=== PATIENT | male | born 1945 | race Caucasian/White ===

== ENCOUNTER 2017-07-03 13:32 | Outpatient (CLI) | payer MEDICARE ==
--- OUTSIDE RECORDS SUMMARY | 2017-07-03 13:34 | XMS | Clinical Summary ---
:1945 Author Organization [facility] Address [address] [place] [address] Phone Care Team Providers Name Role Phone , Primary Care Provider Unavailable Allergies No Known Allergies Current Medications Prescription Sig. Disp. Refills Start Date End Date Status carvedilol (COREG) 12.5 Take 12.5 mg by Active MG tablet mouth 2 (two) times daily with breakfast and dinner. ezetimibe (ZETIA) 10 mg Take 10 mg by mouth Active tablet daily. rosuvastatin (CRESTOR) Take 10 mg by mouth Active 10 MG tablet daily. ramipril (ALTACE) 2.5 MG Take 2.5 mg by mouth Active capsule daily. furosemide (LASIX) 40 MG Take 40 mg by mouth Active tablet daily. metFORMIN (GLUCOPHAGE) Take 500 mg by mouth Active 500 MG tablet 2 (two) times daily with breakfast and dinner. coenzyme Q10 100 mg Take 100 mg by mouth Active capsule daily. loratadine (CLARITIN) 10 Take 10 mg by mouth Active mg tablet daily. aspirin 325 MG tablet Take 325 mg by mouth Active daily. omega-3 fatty acids Cap Take by mouth 2 Active (two) times daily. multivitamin per tablet Take 1 tablet by Active mouth daily. omeprazole (PRILOSEC) 40 Take 40 mg by mouth Active MG capsule 2 (two) times daily. Active Problems Not on file Social History Tobacco Use Types Packs/Day Years Used Date Former Smoker Smokeless Tobacco: Never Used Comments:quit 1999 Alcohol Use Drinks/Week oz/Week Comments No Sex Assigned at Date Recorded Not on file Last Filed Vital Signs Vital Sign Reading Time Taken Blood Pressure 114/60 07/24/2016 3:15 PM CDT Pulse 90 07/24/2016 3:15 PM CDT Temperature 37.2 C (98.9 F) 07/24/2016 3:00 PM CDT Respiratory Rate 16 07/24/2016 3:15 PM CDT Oxygen Saturation 95% 07/24/2016 3:15 PM CDT Inhaled Oxygen Concentration - - Weight 103.4 kg (227 lb 15.3 oz) 07/24/2016 11:21 AM CDT Height 188 cm (6' 2") 07/24/2016 11:21 AM CDT Body Mass Index 29.27 07/24/2016 11:21 AM CDT Plan of Treatment Not on file Results Not on filefrom Last 3 Months
--- OUTSIDE RECORDS SUMMARY | 2017-07-03 13:34 | XMS | Clinical Summary ---
:1945 Author Organization [facility] Address [address] [place] [address] Phone Care Team Providers Name Role Phone TinoKristofer Primary Care Provider tel Allergies No Known Allergies Current Medications Prescription Sig. Disp. Refills Start Date End Date Status rosuvastatin (CRESTOR) Take 10 mg by Active 20 MG tablet mouth daily. ramipril (ALTACE) 2.5 Take 2.5 mg by Active MG capsule mouth daily. furosemide (LASIX) 40 Take 20 mg by Active MG tablet mouth daily. aspirin 325 MG buffered Take 325 mg by Active tablet mouth daily. carvedilol (COREG) 3.125 mg 2 08/05/2016 Active 3.125 MG tablet (two) times a day with meals. diphenhydrAMINE Take 25 mg by Active (BENADRYL) 25 mg tablet mouth nightly as needed for sleep (AT NIGHT NEEDED). omeprazole OTC Take 1 tablet 30 tablet 0 05/14/2017 06/13/2017 (PriLOSEC OTC) 20 MG EC (20 mg total) tablet by mouth daily for 30 days. sucralfate (CARAFATE) Take 10 mL (1 280 mL 0 06/04/2017 06/11/2017 100 mg/mL suspension g total) by mouth 4 (four) times a day for 7 days. Active Problems Problem Noted Date Esophageal perforation 04/17/2017 Essential hypertension 08/26/2016 Type 2 diabetes mellitus 08/26/2016 Cellulitis 05/14/2016 Esophageal cancer 05/03/2016 Encounters Date Type Specialty Care Team Description 06/04/2017 Hospital Encounter Cardiothoracic Surgery Joaquin Rizvi MD 06/04/2017 Anesthesia Event Cardiothoracic Surgery Brook Saini MD 06/04/2017 Procedure Pass Cardiothoracic Surgery 06/04/2017 Surgery Cardiothoracic Surgery Joaquin Rizvi EGD W/ esophageal MD Alex balloon DILATION and esophagram 05/30/2017 Telephone Cardiothoracic Surgery Gabby Oleary NP 05/30/2017 Procedure Pass Cardiothoracic Surgery 05/14/2017 Hospital Encounter Cardiothoracic Surgery Joaquin Riziv MD 05/14/2017 Anesthesia Event Cardiothoracic Surgery Darshan Alvarado MD 05/14/2017 Procedure Pass Cardiothoracic Surgery 05/14/2017 Surgery Cardiothoracic Surgery Joaquin Rizvi EGD W/ DILATIONAlex MD esophagram 04/24/2017 Transcribe Orders Cardiothoracic Surgery Joaquin Rizvi Esophageal MD Alex stricture (Primary Dx);Blood tests prior to treatment or procedure;SOB (shortness of breath) 04/17/2017 - Hospital Encounter Cardiology Joaquin Rizvi 04/18/2017 MD Alex 04/17/2017 Anesthesia Event Cardiothoracic Surgery Shola Messer MD 04/17/2017 Procedure Pass Cardiothoracic Surgery 04/17/2017 Surgery Cardiothoracic Surgery Joaquin Rizvi EGD, W/ DILATIONAlex MD Esophagram 04/16/2017 Telephone Cardiothoracic Surgery Gabby Oleary NP 04/04/2017 Hospital Encounter Cardiothoracic Surgery Georgi Truong MD 04/04/2017 Anesthesia Event Cardiothoracic Surgery Keerthi Brandt CRNA 04/04/2017 Procedure Pass Cardiothoracic Surgery 04/04/2017 Surgery Cardiothoracic Surgery Georgi Truong EGZack W/ Lizbeth DUNCAN MD KENALOG INJECTION, FLEXIBLE BRONCHOSCOPY 04/03/2017 Telephone Cardiothoracic Surgery Gabby Oleary NP 04/02/2017 Orders Only Cardiothoracic Surgery Provider, MD Susan from Last 3 Months Social History Tobacco Use Types Packs/Day Years Used Date Former Smoker Cigarettes 1.5 40 Quit: 2000 Smokeless Tobacco: Never Used Tobacco Cessation:Counseling Given: No Alcohol Use Drinks/Week oz/Week Comments No former Sex Assigned at Date Recorded Not on file Last Filed Vital Signs Vital Sign Reading Time Taken Blood Pressure 112/62 06/04/2017 5:22 PM CDT Pulse 89 06/04/2017 5:22 PM CDT Temperature 36.8 C (98.2 F) 06/04/2017 5:22 PM CDT Respiratory Rate 14 06/04/2017 5:22 PM CDT Oxygen Saturation 94% 06/04/2017 5:22 PM CDT Inhaled Oxygen Concentration - - Weight 84 kg (185 lb 4 oz) 06/04/2017 10:35 AM CDT Height 188 cm (6' 2") 06/04/2017 10:35 AM CDT Body Mass Index 23.78 06/04/2017 10:35 AM CDT Plan of Treatment Health Maintenance Due Date Last Done Comments FOOT EXAM 1954 OPHTHALMOLOGY EXAM 1954 COLONOSCOPY 1994 ZOSTER VACCINE 2004 PNEUMOCOCCAL POLYSACCHARIDE VACCINE AGE 65 AND OVER 2009 PNEUMOCOCCAL-13 2009 INFLUENZA VACCINE 04/29/2017 Implants Implanted Type Area Contact Lens Assistant Device Expiration Model / Identifier Date Serial / Lot Dilator Baln Espgl Pylrc Clnc Wire Guided [id number] 6-8mm - [id number] Surgical N/A: N/A [facility] [id number] / Implanted:04/04/2017 (Quantity not on file) Implants; / Expanders; Extenders; Surgical Wires Dilator Baln Espgl Pylrc Clnc Wire Guided [id number] 8-10mm - [id number] Surgical N/A: N/A [facility] [id number] / Implanted:04/17/2017 (Quantity not on file) Implants; / Expanders; Extenders; Surgical Wires Dilator Baln Espgl Pylrc Clnc Wire Guided [id number] 10-12mm - [id number] Surgical N/A: N/A [facility] [id number] / Implanted:04/17/2017 (Quantity not on file) Implants; / Expanders; Extenders; Surgical Wires Dilator Baln Espgl Pylrc Clnc Wire Guided [id number] 10-12mm - [id number] Surgical N/A: N/A [facility] [id number] / Implanted:05/14/2017 (Quantity not on file) Implants; / Expanders; Extenders; Surgical Wires Dilator Baln Espgl Pylrc Clnc Wire Guided [id number] 12-15mm - [id number] Surgical N/A: N/A [facility] [id number] / Implanted:05/14/2017 (Quantity not on file) Implants; / Expanders; Extenders; Surgical Wires Dilator Baln Espgl Pylrc Clnc Wire Guided [id number] 10-12mm - [id number] Surgical N/A: N/A [facility] [id number] / Implanted:06/04/2017 (Quantity not on file) Implants; / Expanders; Extenders; Surgical Wires Dilator Baln Espgl Pylrc Clnc Wire Guided [id number] 15-18mm - [id number] Surgical N/A: N/A [facility] [id number] / Implanted:06/04/2017 (Quantity not on file) Implants; / Expanders; Extenders; Surgical Wires Procedures Procedure Name Priority Date/Time Associated Diagnosis Comments NH AN ELECTIVE Routine 06/04/2017 1:36 PM ENDOTRACHEAL AIRWAY CDT Procedure Note - Ewa Xavier MD - 06/04/2017 1:34 PM CDT Airway Date/Time: 06/04/2017 1:24 AM Performed by: EWA XAVIER Authorized by: EWA XAVIER Location: OR Urgency: Elective Difficult Airway: No Anesthesiologist: EWA XAVIER Resident/HEALTH INFORMATICS SPECIALIST: AI HAIR Performed by: resident/HEALTH INFORMATICS SPECIALIST Preoxygenated with 100% O2: Yes C-spine Precautions Maintained Throughout: Yes Mask Ventilation: Easy mask Final Airway Type: Endotracheal airway Final Endotracheal Airway: ETT Technique Used: Video laryngoscopy Devices/Methods Used in Placement: Intubating stylet Insertion Site: Oral Blade Type: Zepeda Laryngoscope Blade/Videolaryngoscope Blade Size: 4 ETT Size (mm): 8.0 Measured from: Lips ETT to Lips (cm): 23 Placement Verified by: CO2 detection, direct visualization and equalbreath sounds Laryngoscopic view: Grade I - full view of glottis Rapid Sequence Induction (RSI): No Modified RSI: No Number of Attempts at Approach: 1 NH AN ELECTIVE ENDOTRACHEAL AIRWAY Routine 05/14/2017 10:52 AM CDT Procedure Note - Bala Spencer CRNA - 05/14/2017 10:50 AM CDT Airway Date/Time: 05/14/2017 10:30 AM Performed by: BALA SPENCER Authorized by: ASHLEIGH CONDON Location: OR Urgency: Elective Difficult Airway: No Anesthesiologist: FLACO ROBERTSON Resident/HEALTH INFORMATICS SPECIALIST: BALA SPENCER Performed by: anesthesiologist Preoxygenated with 100% O2: Yes C-spine Precautions Maintained Throughout: Yes Mask Ventilation: Easy mask Final Airway Type: Endotracheal airway Final Endotracheal Airway: ETT Cuffed: Yes Technique Used: Direct laryngoscopy Devices/Methods Used in Placement: Intubating stylet Blade Type: Zepeda Laryngoscope Blade/Videolaryngoscope Blade Size: 2 ETT Size (mm): 8.0 Cuff at minimum occlusion pressure: Yes Measured from: Lips ETT to Lips (cm): 23 Placement Verified by: CO2 detection and direct visualization Laryngoscopic view: Grade IIb - view of arytenoids or posterior ofglottis only Rapid Sequence Induction (RSI): No Modified RSI: Yes Number of Attempts at Approach: 2 ARTERIAL LINE Routine 04/17/2017 10:05 AM CDT Procedure Note - Ewa Xavier MD - 04/17/2017 10:05 AM CDT Arterial line Performed by: EWA XAVIER Authorized by: EWA XAVIER Patient Location: OR Staff: Anesthesiologist: EWA XAVIER Resident/HEALTH INFORMATICS SPECIALIST: AUGUSTINA CUNNINGHAM Performed by: Resident/HEALTH INFORMATICS SPECIALIST Pre-procedure: patient identified, IV checked, site and side verified,risks and benefits discussed, procedure verified, surgical consentcomplete, patient position confirmed, monitors and equipment checked andpre-op evaluation complete MSBT: antiseptic used, all elements of maximal sterile barrier techniquefollowed, hand hygiene performed, cap/gown used by other personnel andsolutions labeled Indications: Indications: hemodynamic monitoring Anesthesia: Anesthesia: General Procedure Details: Arterial Line placement: Placed post induction Line placement site: Radial Line placement side: Right Arterial line gauge: 20 G Number of attempts: 1 Ultrasound guidance used: Yes Post-procedure: Post-procedure: Sterile dressing applied Post procedure circulation, sensation, movement: Unchanged and normal Patient tolerance: Patient tolerated the procedure well with noimmediate complications NH AN ELECTIVE ENDOTRACHEAL AIRWAY Routine 04/17/2017 9:38 AM CDT Procedure Note - Ewa Xavier MD - 04/17/2017 9:36 AM CDT Airway Date/Time: 04/17/2017 9:32 AM Performed by: EWA XAVIER Authorized by: EWA XAVIER Location: OR Urgency: Elective Difficult Airway: Yes Anesthesiologist: EWA XAVIER/HEALTH INFORMATICS SPECIALIST: AUGUSTINA CUNNINGHAM Performed by: resident/HEALTH INFORMATICS SPECIALIST Preoxygenated with 100% O2: Yes C-spine Precautions Maintained Throughout: Yes Mask Ventilation: Easy mask Final Airway Type: Endotracheal airway Final Endotracheal Airway: ETT Cuffed: Yes Technique Used: Direct laryngoscopy Devices/Methods Used in Placement: Intubating stylet Insertion Site: Oral Blade Type: Zepeda Laryngoscope Blade/Videolaryngoscope Blade Size: 3 ETT Size (mm): 8.0 Cuff at minimum occlusion pressure: Yes Measured from: Lips ETT to Lips (cm): 22 Placement Verified by: CO2 detection, direct visualization and equalbreath sounds Laryngoscopic view: Grade III - view of epiglottis only Rapid Sequence Induction (RSI): No Modified RSI: No Number of Attempts at Approach: 1 NH AN ELECTIVE ENDOTRACHEAL AIRWAY Routine 04/04/2017 10:17 AM CDT Procedure Note - Vicki Solis HEALTH INFORMATICS SPECIALIST - 04/04/2017 10:16 AM CDT Airway Date/Time: 04/04/2017 10:16 AM Performed by: VICKI SOLIS Authorized by: HANNAH NERI V Location: OR Urgency: Elective Difficult Airway: No Anesthesiologist: HANNAH NERI V Performed by: anesthesiologist Preoxygenated with 100% O2: Yes Mask Ventilation: Easy mask Final Airway Type: Endotracheal airway Final Endotracheal Airway: ETT Cuffed: Yes Technique Used: Direct laryngoscopy Devices/Methods Used in Placement: Intubating stylet Insertion Site: Oral Blade Type: Zepeda Laryngoscope Blade/Videolaryngoscope Blade Size: 2 ETT Size (mm): 8.0 Cuff at minimum occlusion pressure: Yes Measured from: Lips ETT to Lips (cm): 22 Placement Verified by: CO2 detection and direct visualization Laryngoscopic view: Grade IIa - partial view of glottis Modified RSI: Yes Number of Attempts at Approach: 1 from Last 3 Months Results XR Chest 1 Vw Portable (06/04/2017 4:20 PM)Only the most recent of9 resultswithin the time period is included. Specimen Performing Laboratory [facility] [address] [place] [address] Narrative EXAMINATION:XR CHEST 1 VW PORTABLE CLINICAL HISTORY:post op COMPARISON:05/14/2017 IMPRESSION: Right-sided chest port is again noted. Heart and mediastinum stable. Focal area of alveolar infiltrates, right mid lung zone, and to a lesser degree, left midlung zone. Underlying pneumonia suspected.Follow-up recommended. Blunting of the costophrenic angles again noted and may indicate small effusions. [id number] Procedure Note Interface, Radiology Results Incoming - 06/04/2017 4:30 PM CDT EXAMINATION: XR CHEST 1 VW PORTABLE CLINICAL HISTORY: post op COMPARISON: 05/14/2017 IMPRESSION: Right-sided chest port is again noted. Heart and mediastinum stable. Focalarea of alveolar infiltrates, right mid lung zone, and to a lesser degree,left midlung zone. Underlying pneumonia suspected. Follow-up recommended.Blunting of the costophrenic angles again noted and may indicate small effusions. [facility]-[id number] OR FL< 1 Hour (06/04/2017 2:15 PM)Only the most recent of3 resultswithin the time period is included. Specimen Performing Laboratory [facility] [address] [place] [address] Narrative EXAMINATION:OR FL 1 HOUR C-arm fluoroscopy was requested in OR. Location: [facility] 9 Procedure: Bronch Start: 13:20 End: 14:15 Fluoro Time: 0:53 min Dose: 16.9 Tech(S): SH/AB IMPRESSION: Separate operative report will be issued by the physician performing the procedure. [id number] Procedure Note Interface, Radiology Results Incoming - 06/04/2017 7:38 PM CDT EXAMINATION: OR FL 1 HOUR C-arm fluoroscopy was requested in OR. Location: [facility] 9 Procedure: Bronch Start: 13:20 End: 14:15 Fluoro Time: 0:53 min Dose: 16.9 Tech(S): SH/AB IMPRESSION: Separate operative report will be issued by the physician performing theprocedure. [id number] Estimated GFR (06/04/2017 10:34 AM)Only the most recent of3 resultswithin the time period is included. Component Value Ref Range GFR Non Af Amer >90 mL/min/1.73 m2 GFR Af Amer >90 mL/min/1.73 m2 Comment: Chronic kidney disease: <60 mL/min/1.73m2 Kidney failure: <15 mL/min/1.73m2 The estimated GFR is calculated from the IDMS-traceable Modification of Diet in Renal Disease Equation. The accuracy of the calculation is poor when the creatinine is normal. Calculated values >90 mL/min/1.73m2 are not reported. This equation has not been validated in children (<18 years), women, the elderly (>70 years), or ethnic groups other than Caucasians and Americans. Specimen Performing Laboratory Plasma specimen [facility] DEPARTMENT OF PATHOLOGY AND [address] [address] Partial thromboplastin time, activated (06/04/2017 10:34 AM)Only the most recent of2 resultswithin the time period is included. Component Value Ref Range PTT 29.0 23.0 - 36.0 sec Comment: PTT therapeutic range for unfractionated heparin is 61.0-112.0 seconds which corresponds to Anti-Xa 0.3-0.7 U/ml. Specimen Performing Laboratory Blood [facility] OF PATHOLOGY AND [address] [address] Prothrombin time with INR (06/04/2017 10:34 AM)Only the most recent of2 resultswithin the time period is included. Component Value Ref Range Prothrombin time 13.8 12.0 - 15.0 sec INR 1.1 Comment: The International Normalized Ratio (INR) is a therapeutic monitoring tool for patients who are stable on oral anticoagulant therapy. An INR of 2.0-3.0 is suggested for deep vein thrombosis/pulmonary embolism. Specimen Performing Laboratory Blood [facility] DEPARTMENT OF PATHOLOGY AND [address] [address] CBC with platelet and differential (06/04/2017 10:34 AM)Only the most recent of3 resultswithin the time period is included. Component Value Ref Range WBC 6.89 4.50 - 11.00 k/uL RBC 3.69(L) 4.40 - 6.00 m/uL HGB 11.3(L) 14.0 - 18.0 g/dL HCT 35.8(L) 41.0 - 51.0 % MCV 97.0 82.0 - 100.0 fL MCH 30.6 27.0 - 34.0 pg MCHC 31.6 31.0 - 37.0 g/dL RDW - SD 53.2 37.0 - 55.0 fL MPV 10.0 8.8 - 13.2 fL Platelet count 299 150 - 400 k/uL Nucleated RBC 0.00 /100 WBC Neutrophils 62.0 39.0 - 69.0 % Lymphocytes 12.5(L) 25.0 - 45.0 % Monocytes 13.1(H) 0.0 - 10.0 % Eosinophils 10.6(H) 0.0 - 5.0 % Basophils 1.2(H) 0.0 - 1.0 % Immature granulocytes 0.6Comment:"Immature granulocytes" 0.0 - 1.0 % (promyelocytes, myelocytes, metamyelocytes) Specimen Performing Laboratory Blood [facility] DEPARTMENT OF PATHOLOGY AND GENOMIC MEDICINE [address] [place] [address] Basic metabolic panel (06/04/2017 10:34 AM)Only the most recent of3 resultswithin the time period is included. Component Value Ref Range Sodium 143 135 - 148 mEq/L Potassium 4.7 3.5 - 5.0 mEq/L Chloride 101 98 - 112 mEq/L CO2 29 24 - 31 mEq/L Anion gap 13 7 - 15 mEq/L Comment: Starting from December , anion gap calculation no longer incorporates potassium. Please note the change. BUN 15 8 - 23 mg/dL Creatinine 0.5(L) 0.7 - 1.2 mg/dL Glucose 110(H) 65 - 99 mg/dL Calcium 9.9 8.8 - 10.2 mg/dL Specimen Performing Laboratory Plasma specimen [facility] DEPARTMENT OF PATHOLOGY AND [facility] MEDICINE [address] [place] [id number] PET/CT Whole Body External Study (05/13/2017 10:40 AM) Specimen Performing Laboratory [address] [address] Narrative This exam was not acquired at a [facility] facility and has not been interpreted by a [facility] Provider.The exam was imported into our imaging system for comparisons purposes. CT Guided Chest Tube (04/17/2017 7:30 PM) Specimen Performing Laboratory [address] [address] Narrative Performing Radiologist Rico Tesfaye MD Assistants None Anesthesia Type Moderate sedation was administered by the procedure nurse and monitored by the procedure physician for a total [id number] sedation time of 30 minutes. Lidocaine 1% was also used for local anesthetic. Indication Right-sided Pneumothorax. Procedure CT-guided Right-sided chest tube placement. Technique the patient was placed supine on the CT table. The right chest was prepped and draped in usual sterile fashion. 1% lidocaine was used for local anesthetic. Using CT guidance, an 18-gauge needle was used to access the large right-sided pneumothorax. A 0.035 inch J-wire was advanced through the needle, coiled in the right hemithorax. An 8 Cymraes skater all-purpose tube was placed over the wire, placed in the large right-sided pneumothorax. The pneumothorax was partially evacuated. The tube was connected to a Pleur-evac, sutured to the skin and dressed. Patient tolerated the procedure well. Findings CT performed as part of a CT-guided procedure redemonstrates a large right- sided pneumothorax. Remainder of findings unchanged from prior CT report. Complications None Specimens Removed None Estimated Blood Loss Less than 1 mL Blood/Blood Products Administered None Grafts/Implants As described in the above report Impression: 1. Successful CT-guided right-sided chest tube placement. [facility]-[id number] Procedure Note Hm Interface, Radiology Results Incoming - 04/18/2017 12:35 PM CDT Performing Radiologist Rico Tesfaye MD Assistants None Anesthesia Type Moderate sedation was administered by the procedure nurse and monitored bythe procedure physician for a total [id number] sedation time of 30minutes. Lidocaine 1% was also used for local anesthetic. Indication Right-sided Pneumothorax. Procedure CT-guided Right-sided chest tube placement. Technique the patient was placed supine on the CT table. The right chest wasprepped and draped in usual sterile fashion. 1% lidocaine was used forlocal anesthetic. Using CT guidance, an 18-gauge needle was used to accessthe large right-sided pneumothorax. A 0.035 inch J-wire was advanced through the needle, coiled in the righthemithorax. An 8 Cymraes skater all-purpose tube was placed over the wire, placed in the large right-sided pneumothorax. The pneumothorax waspartially evacuated. The tube was connected to a Pleur-evac, sutured to the skin and dressed. Patienttolerated the procedure well. Findings CT performed as part of a CT-guided procedure redemonstrates a largeright- sided pneumothorax. Remainder of findings unchanged from prior CTreport. Complications None Specimens Removed None Estimated Blood Loss Less than 1 mL Blood/Blood Products Administered None Grafts/Implants As described in the above report Impression: 1. Successful CT-guided right-sided chest tube placement. [facility]-[id number] CT Chest Wo Contrast (04/17/2017 5:20 PM) Specimen Performing Laboratory [facility] [address] [place] [address] Narrative EXAMINATION: CT CHEST WO CONTRAST CLINICAL HISTORY: after esophagram for pneumothorax after EGD TECHNIQUE: Multiple axial images of the chest were obtained without intravenous contrast. The lack of intravenous contrast reduces the sensitivity of detecting solid organ disease and evaluating vasculature. Sagittal and coronal computerized reformatted images were also obtained. CT imaging was performed with iterative reconstruction techniques and/or automated exposure control to reduce radiation dose. COMPARISON: Chest radiograph 5 hours earlier IMPRESSION: 1.Moderate hydropneumothorax is redemonstrated, and is approximately 40% volume. There is no mediastinal shift to imply tension. 2.Status post esophagectomy with gastric pull-through. There is contrast in the esophagus, gastric pull-up, and imaged upper abdominal small bowel from esophagram performed one hour earlier. No contrast extravasation is seen. 3.There is atelectasis in both lung bases. A tiny left pleural effusion is present. 4.Moderate biapical emphysema is present. 5.No significant thoracic lymphadenopathy is seen. 6.There is mild cardiomegaly. 7.No significant abnormality is seen in the imaged upper abdomen. 8.No significant skeletal abnormality is seen. 9.Right internal jugular port catheter tip terminates in the lower SVC. [id number] Procedure Note Interface, Radiology Results Incoming - 04/17/2017 5:48 PM CDT EXAMINATION: CT CHEST WO CONTRAST CLINICAL HISTORY: after esophagram for pneumothorax after EGD TECHNIQUE: Multiple axial images of the chest were obtained without intravenouscontrast. The lack of intravenous contrast reduces the sensitivity ofdetecting solid organ disease and evaluating vasculature. Sagittal and coronal computerized reformatted images were also obtained. CT imaging was performed with iterative reconstruction techniques and/ orautomated exposure control to reduce radiation dose. COMPARISON: Chest radiograph 5 hours earlier IMPRESSION: 1. Moderate hydropneumothorax is redemonstrated, and is approximately 40% volume. There is no mediastinal shift to imply tension. 2. Status post esophagectomy with gastric pull-through. There is contrastin the esophagus, gastric pull-up, and imaged upper abdominal small bowelfrom esophagram performed one hour earlier. No contrast extravasation isseen. 3. There is atelectasis in both lung bases. A tiny left pleural effusionis present. 4. Moderate biapical emphysema is present. 5. No significant thoracic lymphadenopathy is seen. 6. There is mild cardiomegaly. 7. No significant abnormality is seen in the imaged upper abdomen. 8. No significant skeletal abnormality is seen. 9. Right internal jugular port catheter tip terminates in the lowerSVC. [facility]-[id number] [place] Esophagram Complete (04/17/2017 4:35 PM) Specimen Performing Laboratory [facility] [address] [place] [address] Narrative EXAMINATION:FL ESOPHAGRAM COMPLETE CLINICAL HISTORY:pneumothorax after EGD COMPARISON:None. Fluoroscopy time: 3.3 minutes.Total dose: 97.42 mGy FINDINGS: Patient status post esophagectomy with gastric pull-through. There is a narrowing at mid thoracic esophagus associated mild prestenotic dilatation of the esophagus. This narrowing is most likely at the level of the anastomosis. There is no leak identified. Again seen right-sided pneumothorax. Sternotomy wires and single lumen right chest port with tip ending in the SVC. IMPRESSION: - Patient status post esophagectomy with gastric pull-through. - There is no evidence of contrast extravasation to suspect esophageal leak. - There is moderate narrowing of mid thoracic esophagus. [id number] Procedure Note Interface, Radiology Results Incoming - 04/17/2017 6:13 PM CDT EXAMINATION: [place] ESOPHAGRAM COMPLETE CLINICAL HISTORY: pneumothorax after EGD COMPARISON: None. Fluoroscopy time: 3.3 minutes. Total dose: 97.42 mGy FINDINGS: Patient status post esophagectomy with gastric pull-through. There is a narrowing at mid thoracic esophagus associated mild prestenoticdilatation of the esophagus. This narrowing is most likely at the level ofthe anastomosis. There is no leak identified. Again seen right-sided pneumothorax. Sternotomy wires and single lumen right chest port with tip ending in theSVC. IMPRESSION: - Patient status post esophagectomy with gastric pull-through. - There is no evidence of contrast extravasation to suspect esophagealleak. - There is moderate narrowing of mid thoracic esophagus. [id number] ECG 12 lead (04/17/2017 11:09 AM)Only the most recent of2 resultswithin the time period is included. Component Value Ref Range Ventricular rate 84 Atrial rate 84 NH interval 216 QRSD interval 130 QT interval 418 QTC interval 493 P axis 1 41 QRS axis 1 53 T wave axis -37 EKG impression Sinus rhythm with 1st degree AV block-Nonspecific intraventricular block-Cannot rule out Anterior infarct (cited on or before Mar-2017)-T wave abnormality, consider inferior ischemia-Abnormal ECG-In automated comparison with ECG of 17-APR-2017 09:21,-No significant change was found- Specimen Performing Laboratory [facility] MUSE [address] [place] [id number] [place]> I Hour (04/17/2017 10:30 AM) Specimen Performing Laboratory [facility] [address] [place] [id number] Narrative IMPRESSION: C-arm fluoroscopy over 1 hour was provided in the OR for the referring physician. A radiologist was not present during the procedure. Refer to the Operative report issued by the performingprovider for procedure details. Location: [place] [address] Procedure: EGD Start: 9:30 End: 10:30 Fluoro Time: 1.0 min Dose: 18.2 mGy Tech(S): SH/AB Procedure Note Interface, Radiology Results Incoming - 04/18/2017 12:53 PM CDT IMPRESSION: C-arm fluoroscopy over 1 hour was provided in the OR for thereferring physician. A radiologist was not present during the procedure. Refer to the Operative report issued by the performing provider forprocedure details. Location: [facility] [place] Procedure: EGD Start: 9:30 End: 10:30 Fluoro Time: 1.0 min Dose: 18.2 mGy Tech(S): SH/AB Sodium level, syringe (04/17/2017 9:57 AM)Only the most recent of2 resultswithin the time period is included. Component Value Ref Range Sodium, syringe 138 135 - 148 mEq/L Specimen Performing Laboratory Blood [facility] DEPARTMENT OF PATHOLOGY AND GENOMIC MEDICINE [address] [place] [id number] Potassium, syringe (04/17/2017 9:57 AM)Only the most recent of2 resultswithin the time period is included. Component Value Ref Range Potassium, syringe 3.9 3.5 - 5.0 mEq/L Specimen Performing Laboratory Blood [facility] DEPARTMENT OF PATHOLOGY AND GENOMIC MEDICINE [address] [place] [id number] Ionized calcium, arterial (04/17/2017 9:57 AM) Component Value Ref Range Ionized calcium, arterial 1.07(L) 1.11 - 1.32 mmol/L Specimen Performing Laboratory Blood [facility] DEPARTMENT OF PATHOLOGY [address] [address] Hemoglobin, syringe (04/17/2017 9:57 AM)Only the most recent of2 resultswithin the time period is included. Component Value Ref Range Hemoglobin, syringe 10.5(L) 14.0 - 18.0 g/dL Specimen Performing Laboratory Blood [facility] DEPARTMENT PATHOLOGY [address] [address] Glucose level, syringe (04/17/2017 9:57 AM)Only the most recent of2 resultswithin the time period is included. Component Value Ref Range Glucose, syringe 95 65 - 99 mg/dL Specimen Performing Laboratory Blood [facility] DEPARTMENT PATHOLOGY [address] [address] Arterial blood gas, corrected (04/17/2017 9:57 AM) Component Value Ref Range pH, arterial 7.44 7.35 - 7.45 pCO2, arterial 38 35 - 45 mmHg pO2, arterial 249(H) 80 - 90 mmHg Temperature, Celsius 36.5 Degrees C O2 saturation, arterial 100 95 - 100 % pH, arterial corrected 7.45 pCO2, arterial corrected 37 mmHg pO2, arterial corrected 247 mmHg Base excess, arterial 2 -2 - 2 mEq/L Specimen Performing Laboratory Blood [facility] DEPARTMENT OF PATHOLOGY [address] [address] Manual differential (04/04/2017 8:40 AM) Component Value Ref Range Manual differential PERFORMED Neutrophils 70.0(H) 39.0 - 69.0 % Lymphocytes 15.0(L) 25.0 - 45.0 % Monocytes 13.0(H) 0.0 - 10.0 % Eosinophils 2.0 0.0 - 5.0 % Basophils 0.0 0.0 - 1.0 % Metamyelocytes 0 % Promyelocytes 0 % Platelet slide review Liyah slt decr Anisocytosis Moderate Polychromasia Moderate Tear drop cells Occasional Schistocytes Occasional Ovalocytes Moderate Specimen Performing Laboratory [facility] DEPARTMENT PATHOLOGY [address] [address] POC glucose (04/04/2017 8:14 AM) Component Value Ref Range POC glucose 111(H) 65 - 99 mg/dL Comment: No Action Needed Meter ID: [id number] [employer] Consultant: Margie Fajardo Specimen Performing Laboratory [facility] DEPARTMENT OF PATHOLOGY AND GENOMIC MEDICINE [address] [place] [id number] from Last 3 Months Insurance Payer Benefit Plan / Group Subscriber ID Type Phone Address [employer] MEDICARE HU[employer]NA MEDICARE PPO/PFFS/ERS [facility] [id number] PPO [id number] [phone] [place], [place] [id number]
== END 2017-07-03 13:33 | disposition home or self-care (01) ==
LOC: CP 13:32
PROVIDERS: ATTEND Internal Medicine
DX: J44.9 Chronic obstructive pulmonary disease, unspecified (principal); G47.33 Obstructive sleep apnea (adult) (pediatric)
CPT/HCPCS: 94060; 94727; 94729

== ENCOUNTER 2017-07-18 18:23 | Inpatient (IN) | payer MEDICARE ==
[2017-07-18 19:09] LABS: #Eosinphils 0.6 thou/uL (0.0-0.7); #Lymphocytes 0.7 thou/uL (1.20-3.40); #Monocytes 0.9 thou/uL (0.11-0.59); #Neutrophils 6.2 thou/uL (1.40-6.50); %Basophils 0.4 % (0.0-1.0); %Eosinophils 7.7 % (0.0-10.0); %Lymphocytes 7.9 % (21.0-51.0); %Monocytes 10.5 % (0.0-10.0); Hematocrit 40.5 % (42.0-52.0); Mean Platelet Volume 7.7 fL (7.4-10.4); Red Blood Cell (RBC) Count 4.24 mill/uL (4.70-6.10); White Blood Cell (WBC) Count 8.4 thou/uL (4.8-10.8)
[2017-07-18] MEDS ORDERED: methylPREDNISolone Sod Succ/PF 125 MG/2 ML VIAL ONE (19:17)
[2017-07-18 19:20] LABS: Oxyhemoglobin 92.7 % (94.0-97.0); Sodium 139 mmol/L (135-148)
[2017-07-18 19:21] LABS: Mode BIPAP S/T; Modified Allen's Test POSITIVE; PIP 10 cmH2O; Vent YES
[2017-07-18 19:24] LABS: Lactic Acid - Sepsis 0.9 mmol/L (0.5-2.2)
[2017-07-18 19:28] LABS: PTT 33.6 SEC (22.9-36.1)
[2017-07-18 19:29] LABS: Lipase Less than 4 U/L (8-78); Magnesium 2.3 mg/dL (1.6-2.6)
[2017-07-18 19:30] LABS: ALT (SGPT) 24 U/L (8-55); AST (SGOT) 26 U/L (5-34); Alkaline Phosphatase 137 U/L (40-150); Anion Gap 11 mmol/L (10-20); BUN (Urea Nitrogen) 14 mg/dL (8.4-25.7); Bilirubin, Total 0.4 mg/dL (0.2-1.2); Calc. Creatinine Clearance 0 mL/min (70-130); Calcium 9.8 mg/dL (7.8-10.44); Carbon Dioxide 31 mmol/L (23-31); Chloride 102 mmol/L (98-107); Estimated GFR-MDRD Greater than 90; Globulin 4.1 g/dL (2.4-3.5); Protein, Total 7.9 g/dL (5.8-8.1)
[2017-07-18] MEDS ORDERED: Piperacillin/Tazobactam 3.375 GM in Sodium Chloride 0.9% 100 ML IVPB SCH (19:30)
[2017-07-18 19:35] LABS: Troponin I Less than 0.010 ng/mL (< 0.028)
[2017-07-18] MEDS ORDERED: Diprivan 20 ML ONE (19:53)
--- NOTE | 2017-07-18 21:47 | RAD ---
PORTABLE CHEST: 07/18/17 HISTORY: Shortness of breath. COMPARISON: 03/26/17 study. Heart size is borderline with atherosclerotic changes of the aorta. Right sided Mediport catheter is again noted. Patient has developed a large right sided pneumothorax. Marked atelectatic changes of the lung. No tension component is appreciated. There is some increased parenchymal markings in the l eft mid lung field. This could represent some atelectasis. IMPRESSION: Development of a large right sided pneumothorax of uncertain etiology. These findings were telephone d to Dr. Toussaint. POS: [facility]
[2017-07-18] MEDS ORDERED: Lidocaine 1% (PF) 30 ML VIAL ONE (21:53)
[2017-07-18] MEDS ORDERED: Fentanyl 100 MCG/2 ML VIAL ONE (22:41)
--- NOTE | 2017-07-18 22:58 | RAD ---
CHEST ONE VIEW: 07/18/17 COMPARISON: Earlier exam of the same day. HISTORY: Shortness of breath. Chest tube placement. Right sided chest tube has been placed. The tube is in the mid lung field region. Side hole appears to be outside the chest cavity. There is persistent right sided pneumothorax. No other interval evans ge. IMPRESSION: The right chest tube has the side hole outside the chest cavity and there is persistent right sided pneumothorax. POS: [facility]
--- NOTE | 2017-07-18 23:46 | RAD ---
PORTABLE CHEST: 07/18/17 HISTORY: Evaluation of chest tube placement. Chest tube has been advanced. There is now a decrease in the size of the right sided pneumothorax. T he chest tube is kinked at the side hole level. IMPRESSION: Kinking of the chest tube; however the right sided pneumothorax is definitely improved as compared t o the prior exam. POS: [facility]
[2017-07-19] MEDS ORDERED: HYDROcodone/Acetaminophen 5/325 mg Tablet PO PRN ×2 (00:19→00:21)
[2017-07-19] MEDS ORDERED: Ondansetron HCl/PF 4 MG/2 ML Vial IVP PRN (00:19)
[2017-07-19] MEDS ORDERED: Ketorolac Tromethamine 30 MG/ML VIAL IVP PRN ×2 (00:22→00:23)
[2017-07-19] MEDS ORDERED: Milk Of Magnesia 30 ML UDCUP PO PRN (00:24)
[2017-07-19] MEDS ORDERED: Acetaminophen 325 MG TAB PO PRN (00:24)
[2017-07-19] MEDS ORDERED: Mag-Al 1200 mg/1200 mg/30 ML UDCUP PO PRN (00:25)
[2017-07-19] MEDS ORDERED: hydrALAZINE 20 MG/ML VIAL SLOW IVP PRN ×2 (00:25)
[2017-07-19 00:31] VITALS: BMI 25.9
[2017-07-19 01:31] LABS: Hematocrit 32.8 % (42.0-52.0)
[2017-07-19] MEDS: Fentanyl 100 MCG/2 ML VIAL SLOW IVP PRN ×4 (03:47→23:55)
[2017-07-19 04:59] LABS: #Lymphocytes 0.5 thou/uL (1.20-3.40); #Monocytes 0.3 thou/uL (0.11-0.59); #Neutrophils 8.3 thou/uL (1.40-6.50); %Basophils 0.1 % (0.0-1.0); %Lymphocytes 5.8 % (21.0-51.0); %Monocytes 2.8 % (0.0-10.0); Hematocrit 31.2 % (42.0-52.0); Mean Platelet Volume 7.9 fL (7.4-10.4); Red Blood Cell (RBC) Count 3.27 mill/uL (4.70-6.10); White Blood Cell (WBC) Count 9.1 thou/uL (4.8-10.8)
[2017-07-19 05:16] LABS: Anion Gap 7 mmol/L (10-20); BUN (Urea Nitrogen) 16 mg/dL (8.4-25.7); Calc. Creatinine Clearance 152 mL/min (70-130); Calcium 9.1 mg/dL (7.8-10.44); Carbon Dioxide 28 mmol/L (23-31); Chloride 107 mmol/L (98-107); Estimated GFR-MDRD Greater than 90
[2017-07-19] MEDS: Furosemide 20 MG TAB PO SCH (07:47)
[2017-07-19] MEDS: Carvedilol 3.125 MG TAB PO SCH ×2 (07:48→21:22)
--- NOTE | 2017-07-19 07:48 | HP ---
REASON FOR ADMISSION: Right pneumothorax. PERTINENT HISTORY: Patient is a 71-year-old male with remote history of coronary artery bypass surgery and recent history of esophagectomy for esophageal cancer who is on p.r.n. home supplemental oxygen and nocturnal CPAP. This morning,he developed shortness of breath, which did not substantially improve with the home oxygen. He presented to the emergency room this evening around 6:00 p.m. with chest x-ray 50 minutes later revealing a right pneumothorax. On this initial film, upper lung markings on the right suggested a component of pleural adhesions on this side. Approximately 3 hours later, the ER physician placed a poorly positioned right chest tube. This did not result in appreciable lung reexpansion and was associated with approximately 500 mL of blood loss. I was subsequently called. Upon my arrival, the patient was in marked discomfort with elevated HR and BP and on Bipap. The chest tube dressing was taken down revealing an approximately 4cm incision through which the existing chest tube exited with clot in the the tube and significant bleeding around the tube. Pt was quickly prepped and draped in sterile fashion. IV fentanyl was given. Existing tube was removed with egress of blood and air through the wound. Digital exploration and sweep confirmed lung adhesions and that the initial tube had been placed directly in the lung parenchyma. A pleural space was developed corresponding to the loculated pneumothorax in which a new tube was positioned. This was placed through the preexisting incision with this incision subsequently closed with several silk sutures providing seal from the blood and air blowing around the tube. PAST MEDICAL HISTORY: 1. Coronary artery disease. 2. Hypertension. 3. Dyslipidemia. 4. Esophageal cancer treated with preoperative chemoradiation followed by robotic esophagectomy and gastric pull-up late last year at [facility] in [place]. PAST SURGICAL HISTORY: As described above plus MediPort placement. ALLERGIES: None. SOCIAL HISTORY: Former smoker and drinker. MEDICATIONS: Coreg, Ramipril, Lasix, Crestor, Ecotrin, and Loratadine. LABORATORY DATA AND X-RAY: Hemoglobin 13.1. Platelet count 230,000. INR 1.0. Creatinine 0.66. Follow up chest x-ray after the second tube placement revealed reexpansion of the lung. REVIEW OF SYSTEMS: No history of diabetes, kidney or liver disease, or claudication. FAMILY HISTORY: Noncontributory. PHYSICAL EXAMINATION: VITAL SIGNS: Blood pressure 134/60, heart rate initially 120, down to 88. GENERAL: Well-developed male who is fully oriented. HEENT: Grossly unremarkable. NECK: Without JVD or adenopathy. LUNGS: With equal breath sounds following a second tube placement. HEART: Regular rate and rhythm without murmur or rub. ABDOMEN: Soft and nontender, without palpable mass. EXTREMITIES: Without edema. VASCULAR: Palpable radial, femoral, popliteal pulses bilaterally. NEUROLOGIC: No focal deficits. IMPRESSION: Right pneumothorax as described above. PLAN: Admit to ICU. Observation for now with repeat chest x-ray in a.m. If the patient has evidence of significant ongoing blood loss thoracotomy may be required. MTDD
--- NOTE | 2017-07-19 09:04 | OP ---
PREPROCEDURE DIAGNOSIS: Right pneumothorax. REED MAN: Alex Cruz MD FISH ROD MAKER: None. POSTPROCEDURE DIAGNOSIS: Right pneumothorax. ANESTHESIA: Intravenous sedation with fentanyl. PROCEDURE PERFORMED: Right tube thoracostomy (36-Tanzanian straight chest tube). DESCRIPTION OF PROCEDURE: The initial right chest tube placed by the ER physician was removed. This tube had been inserted via an approximately 4 cm incision. Digital exploration through this incision revealed that the initial tube had been placed in the lung parenchyma. Adhesions were evident, however, a free space was ultimately appreciated allowing placement of a new 36-Tanzanian straight chest tube. This was connected to pleurovac suction. It was secured with a 0 silk suture. The large incision created for the initial tube placement was then closed around the tube with 0 silk sutures. This provided seal from egress of further air and blood around the new tube. Dressing was applied. Chest x-ray was obtained. MTDD
--- NOTE | 2017-07-19 09:41 | RAD ---
CHEST 1 VIEW: HISTORY: Chest tubes. COMPARISON: Chest 1 view prior day. FINDINGS: Right layering pleural effusion is slightly decreased in size. There is kinking of the right thorac ostomy side port. The port catheter is similar. Opacities in the left midline lower lobe are simil ar. IMPRESSION: 1. Slight interval size decrease to right layering pleural effusion, although the right thoracostom y tube is kinked at the side port. 2. Trace right apical pneumothorax and small right lateral pneumothorax. POS: [facility]
[2017-07-19] MEDS ORDERED: Midazolam HCl 2 mg/2 ml Vial ONE (11:06)
[2017-07-19] MEDS ORDERED: Lidocaine 1% (PF) 30 ML VIAL ONE (11:11)
--- NOTE | 2017-07-19 12:37 | RAD ---
CHST 1 VIEW: HISTORY: Ventilated patient. COMPARISON: Chest 1 view prior day. FINDINGS: Small right pneumothorax is decreased. Small right hemothorax. Opacities throughout the lungs are improving. Subcutaneous emphysema right lateral hemithorax is si milar. IMPRESSION: Improving edema and decreasing size right pneumothorax. Thoracostomy is no longer kinked. POS: [facility]
[2017-07-19] MEDS: CEFAZOLIN 1 GM in Sodium Chloride 0.9% 100 ML IVPB SCH ×2 (14:54→21:22)
--- NOTE | 2017-07-19 16:54 | CON ---
DATE OF SERVICE: 07/19/2017 SUBJECTIVE: Con Cheng is a 71-year-old gentleman, who was admitted to the hospital last nigh t with presenting shortness of breath, without any associated chest pain. He had a spontaneous pneu mothorax. Please review Dr. Cruz's note. A chest tube had been placed in and is now in the ICU. Initial chest tube placed by the ER physician apparently, as noted by Dr. Cruz, traumatized the david ng parenchyma. The patient is a former smoker. He sees Dr. Dudley, in fact, his oncologist. He sees mainly [facility] in [place] for his cancer of the esophagus. He saw Dr. Hay recently and was placed on 2 different inhalers albuterol and apparently Anoro. This morning, he says he is not having difficulty breathing. He is not coughing. He quit smoking i 1999. He has had previous history of pneumothorax on the right side. He has had a previous pneumothorax a lso in the left lung in 1971. EXTENSIVE HISTORY: Well outlined. PAST MEDICAL HISTORY: Carcinoma of the esophagus diagnosed in 2015. He underwent surgery in [facility] in 04/2010. Followed by chemo and radiation. In 2015, ongoing evaluation at [facility]. He saw Dr. Joiner for stress test. In July, he had an esophagectomy done at [facility] in 2015. He had a swallow test. He apparently has had a history of stricture in the past. This has been dil ated only in [place]. He saw Dr. Hay as of this year. He had a MediPort inserted. ADDITIONAL PAST MEDICAL HISTORY OF PERTINENCE: High cholesterol, hypertension, COPD, cancer of the esophagus. PAST SURGICAL HISTORY: Previous surgeries are extensive as outlined; coronary artery bypass graft s urgery, shoulder surgery, wrist surgery, right-sided pneumothorax, and left-sided pneumothorax. MEDICATIONS: List of medicine is brought in by his includes aspirin, Coreg, Lasix, Respimat, R amipril, and calcium. ALLERGIES: None. REVIEW OF SYSTEMS: Otherwise negative. PHYSICAL EXAMINATION: VITAL SIGNS: Blood pressure 128/67, sats are 95% on 2 liters, and respiratory rate 18. CHEST: Decreased breath sounds, no wheezing. CARDIAC: Normal S1 and S2. No gallops. ABDOMEN: Soft. No masses. LABORATORY DATA: White count 9,000, H\T\H 9 and 31, platelet count 229. His electrolytes are min l. IMAGING DATA: X-ray this morning still shows some residual right pneumo. Chest shows bilateral ple ural thickening, bilateral pulmonary infiltrates, slightly more pronounced in the left base. His in itial chest x-ray did show at least 50% pneumothorax with the MediPort in place. PLAN: I started neb treatments, supportive care. He can probably be transferred out of the ICU. Dl paulino will follow.
[2017-07-19] MEDS: Mometasone/Formoterol 120 PUFF INHALER INH SCH (18:46)
[2017-07-19] MEDS: Aspirin 81 mg Enteric Coated Tablet PO SCH (21:20)
[2017-07-19] MEDS: Loratadine 10 MG TAB PO SCH ×2 (21:20→21:23)
[2017-07-20 04:51] LABS: #Eosinphils 0.1 thou/uL (0.0-0.7); #Monocytes 0.9 thou/uL (0.11-0.59); #Neutrophils 7.2 thou/uL (1.40-6.50); %Basophils 0.5 % (0.0-1.0); %Eosinophils 0.6 % (0.0-10.0); %Lymphocytes 10.7 % (21.0-51.0); Hematocrit 26.3 % (42.0-52.0); Mean Platelet Volume 8.3 fL (7.4-10.4); Red Blood Cell (RBC) Count 2.74 mill/uL (4.70-6.10); White Blood Cell (WBC) Count 9.2 thou/uL (4.8-10.8)
[2017-07-20 04:58] LABS: Anion Gap 7 mmol/L (10-20); BUN (Urea Nitrogen) 18 mg/dL (8.4-25.7); Calc. Creatinine Clearance 155 mL/min (70-130); Calcium 8.7 mg/dL (7.8-10.44); Carbon Dioxide 31 mmol/L (23-31); Chloride 106 mmol/L (98-107); Estimated GFR-MDRD Greater than 90
[2017-07-20] MEDS: CEFAZOLIN 1 GM in Sodium Chloride 0.9% 100 ML IVPB SCH ×3 (06:06→21:22)
[2017-07-20] MEDS: Mometasone/Formoterol 120 PUFF INHALER INH SCH ×2 (06:34→18:45)
[2017-07-20] MEDS: Hydrocodone-Acetamin 15 ML UDCUP PO PRN ×2 (08:30→21:25)
[2017-07-20] MEDS: Furosemide 20 MG TAB PO SCH (08:30)
[2017-07-20] MEDS: Carvedilol 3.125 MG TAB PO SCH ×2 (08:38→21:21)
--- NOTE | 2017-07-20 09:34 | RAD ---
CHEST 1 VIEW: HISTORY: Chest tube. COMPARISON: Chest 1 view prior day. FINDINGS: Small right lateral pneumothorax persists. There are bilateral effusions. There are worsening interstitial opacities throughout the lungs. Port catheter is similar. Heart size is similar. IMPRESSION: 1. Mild increasing of interstitial opacities throughout the lungs suggests pulmonary edema. 2. Similar appearance of the right hemithorax and pneumothorax laterally. POS: [facility]
--- NOTE | 2017-07-20 12:06 | PRG ---
DATE OF SERVICE: 07/20/2017 SUBJECTIVE: This morning, he is awake, alert, responsive with less pain, less shortness of breath. PHYSICAL EXAMINATION: VITAL SIGNS: Sats are 98% on 2 liters, temperature 97, blood pressure 160/57. CHEST: Bilateral rhonchi. CARDIAC: Sinus tachycardia. ABDOMEN: Soft. No masses. LABORATORY DATA: White count 9000, H\T\H 8.7 and 26. Electrolytes are normal. X-ray shows bilater al infiltrates, no obvious pneumothorax. He has still got an air leak. IMPRESSION: 1. Right pneumothorax, spontaneous. 2. Chronic obstructive pulmonary disease. 3. Cancer of the esophagus. PLAN: Pulmonary-humphrey, he can be transferred out of the ICU. Continue neb treatments, supportive ca re. Pain relief. We will follow.
[2017-07-20] MEDS ORDERED: Benzonatate 100 MG CAP PO PRN (12:58)
[2017-07-20] MEDS: Loratadine 10 MG TAB PO SCH (21:21)
[2017-07-20] MEDS: Aspirin 81 mg Enteric Coated Tablet PO SCH (21:21)
[2017-07-20] MEDS: guaiFENesin ER 600 MG TAB PO SCH (21:22)
[2017-07-21] MEDS: CEFAZOLIN 1 GM in Sodium Chloride 0.9% 100 ML IVPB SCH ×2 (05:18→14:30)
[2017-07-21 05:21] LABS: #Eosinphils 0.6 thou/uL (0.0-0.7); #Lymphocytes 0.9 thou/uL (1.20-3.40); #Monocytes 0.9 thou/uL (0.11-0.59); #Neutrophils 4.3 thou/uL (1.40-6.50); %Basophils 0.5 % (0.0-1.0); %Monocytes 12.6 % (0.0-10.0); Hematocrit 27.7 % (42.0-52.0); Mean Platelet Volume 7.9 fL (7.4-10.4); Red Blood Cell (RBC) Count 2.89 mill/uL (4.70-6.10); White Blood Cell (WBC) Count 6.8 thou/uL (4.8-10.8)
[2017-07-21 05:30] LABS: Anion Gap 7 mmol/L (10-20); BUN (Urea Nitrogen) 12 mg/dL (8.4-25.7); Calc. Creatinine Clearance 155 mL/min (70-130); Calcium 8.4 mg/dL (7.8-10.44); Carbon Dioxide 32 mmol/L (23-31); Chloride 103 mmol/L (98-107); Estimated GFR-MDRD Greater than 90
[2017-07-21] MEDS: Mometasone/Formoterol 120 PUFF INHALER INH SCH ×2 (06:59→18:48)
[2017-07-21] MEDS: Carvedilol 3.125 MG TAB PO SCH ×2 (08:48→21:42)
[2017-07-21] MEDS: guaiFENesin ER 600 MG TAB PO SCH ×2 (08:48→21:42)
[2017-07-21] MEDS: Furosemide 20 MG TAB PO SCH (08:48)
--- NOTE | 2017-07-21 09:58 | RAD ---
PORTABLE CHEST ONE VIEW: 07/21/2017 4:48 a.m. HISTORY: Chest tube. FINDINGS: No significant interval change is seen since the previous day's exam. POS: [facility]
--- NOTE | 2017-07-21 11:50 | PRG ---
DATE OF SERVICE: 07/21/2017 SERVICE: Pulmonary Medicine. INTERVAL HISTORY: The patient is doing very well from a cardiovascular and respiratory standpoint. He denies current shortness of breath. His chest pain is under good control. Otherwise, there has been no interval change to his condition. He has a persistent air leak on the chest tube. PHYSICAL EXAMINATION: VITAL SIGNS: Afebrile, pulse 87, blood pressure 136/72, respirations 24, and saturation 100% on room air. GENERAL: The patient is awake, alert, in no apparent distress. LUNGS: Excellent air entry with no prolonged expiratory phase. No wheezing, rhonchi, or crackles. HEART: Normal rate, regular. ABDOMEN: Soft, nontender, nondistended. Bowel sounds positive. MUSCULOSKELETAL: No cyanosis or clubbing. No pitting in the bilateral lower extremities. NEUROLOGIC: Grossly nonfocal. LABORATORY DATA: WBC 6.8, hemoglobin 8.8, and platelets 209,000. Basic metabolic profile is otherwise unremarkable. Blood cultures x2 are unremarkable. IMAGING: Chest x-ray demonstrates good placement of the chest tube. There are bilateral pleural effusions, which are minimal. The right lung is well expanded. No significant interval change. ASSESSMENT: 1. Acute hypoxic respiratory failure, resolved. 2. Spontaneous secondary pneumothorax, recurrent. 3. Acute blood loss anemia. 4. Obstructive sleep apnea. 5. Chronic obstructive pulmonary disease, minimal. PLAN: Pulmonary or Critical Care will continue to follow while the patient remains inhouse. I agree that he is stable for transition to the floor. We will get him into a chair 3 times daily and have him start working with physical therapy, so that he does not become further deconditioned while being here. FRANCES
--- NOTE | 2017-07-21 12:28 | CON ---
DATE OF CONSULTATION: 07/21/2017 REASON FOR CONSULTATION: Esophageal cancer. HISTORY OF PRESENT ILLNESS: Mr. 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 He had an esophagectomy in 07/2016. He has required multiple dilations since that time. He has been receiving weekly Herceptin and is in almost complete remission. Per PET scan, this past Friday , he began to have shortness of breath; it did not improve with oxygen, so [facility]. He had a chest tube placed and was in the ICU over the weekend for observation . He has improved; however, the chest tube remains in place with bloody with serosanguineous draina ge. He is due for his weekly Herceptin tomorrow. We were asked to see the patient regarding his ch emotherapy. PAST MEDICAL HISTORY: 1. Esophageal adenocarcinoma, status post chemo and esophagectomy. 2. Esophageal dilation x4. 3. Hyperlipidemia. 4. Hypertension. 5. Coronary artery disease. 6. Diabetes mellitus 2. PAST SURGICAL HISTORY: Cardiac bypass 2014, esophagectomy, multiple orthopedic surgeries, collapsed lung in 1970. ALLERGIES: No known drug allergies. HOME MEDICATIONS: 1. Aspirin 81 mg daily. 2. Coreg 3.125 p.o. b.i.d. 3. Crestor 20 mg daily. 4. Lasix 20 mg daily. 5. Loratadine once daily. FAMILY HISTORY: Brother had pancreatic. Daughter had breast cancer. Father had a history of skin cancer. SOCIAL HISTORY: , has 2 children, lives with his spouse, former smoker, former alcohol user, no illicit drug use. REVIEW OF SYSTEMS: Constitutional: No fever, chills, night sweats. Eyes: No blurred or double vi lilian. ENT: No pain, hoarseness, or sore throat. Positive for occasional dysphagia. Cardiovascula r: No chest pain, palpitations or syncope. Respiratory: Positive for shortness of breath and coug h. Gastrointestinal: No nausea, vomiting, diarrhea, constipation, abdominal pain. Genitourinary: No dysuria or hematuria. Musculoskeletal: No joint or back pain. Skin: No rash or pruritus. He matologic: No bleeding, bruising or clotting. Neurological: No weakness, headache, numbness, ti ngling or seizure activity. Psychiatric: No anxiety or depression. PHYSICAL EXAMINATION: VITAL SIGNS: Temperature is 97.8, pulse is 87, respiratory rate 17, BP is 136/72. He is 100% on ro om air. GENERAL: Well-developed, well-nourished male, in no acute distress. HEENT: Normocephalic, atraumatic. Pupils are equal and reactive to light. NECK: Supple. CARDIOVASCULAR: Regular rate and rhythm. LUNGS: Clear to auscultation. He has a chest tube in his right axilla. ABDOMEN: Soft, nontender. EXTREMITIES: No clubbing, cyanosis or edema. SKIN: No rash. HEMATOLOGIC: No petechia or purpura. NEUROLOGICAL: Nonfocal. PSYCHIATRIC: The patient is alert and oriented and appropriate. PERTINENT LABORATORY AND X-RAYS: Current WBCs 6.8, hemoglobin 8.8, hematocrit 27.7, platelet count 209,000, 64% neutrophils, 14% lymphocytes, 12% monocytes. Sodium 138, potassium 4.9, chloride 103, CO2 is 32, BUN is 12, creatinine 0.56, calcium 8.4, total bilirubin is 0.4, AST is 26, ALT is 24, al kaline phosphatase is 137. BNP is 116. Troponins negative. Serum total protein 7.9, albumin 3.8, globulin 4.1. ASSESSMENT: 1. HER-2 positive adenocarcinoma of the esophagus. 2. Right pneumothorax. DISCUSSION: The patient's chest tube remains in place and is managed by the cardiothoracic surgeon. His shortness breath is dramatically improved. He is in almost complete remission with treatment, so we will continue his weekly Herceptin tomorrow as an inpatient and provide supportive care. Thank you for the consult.
--- NOTE | 2017-07-21 14:20 | PQF ---
CLINICAL DOCUMENTATION IMPROVEMENT CLARIFICATION FORM: ICD-10 Updated PLEASE DO AN ADDENDUM TO THE PROGRESS NOTE WITH ANY DOCUMENTATION UPDATES OR ADDITIONS AND CARRY THROUGH TO DC SUMMARY. THANK YOU. DATE: 07/21/17 ATTN: DR. MARTINEZ Please exercise your independent, professional judgment in responding to the clarification form. Clinical indicators are provided on the bottom of this form for your review Please check appropriate box(s): [ X ] Acute Respiratory Failure: [X ] with Hypoxia[ ] with Hypercapnia [ ] Acute On Chronic Respiratory Failure: [ ] with Hypoxia [ ] with Hypercapnia [ ] Acute Respiratory Failure due to: (etiology) [ ] Acute Respiratory Insufficiency following (if applicable): [ ] trauma [ ] surgery [ ] Chronic Respiratory Failure only [ ] with Hypoxia [ ] with Hypercapnia [ ] Hypoxia [ ] Other diagnosis [ ] Unable to determine In addition, please specify: Present on Admission (POA): [ X ] Yes [ ] No [ ] Unable to determine For continuity of documentation, please document condition throughout progress notes and discharge summary. Thank You. CLINICAL INDICATORS - SIGNS / SYMPTOMS / LABS ER NOTE: "PATIENT PRESENTS FOR EVALUATION OF SHORTNESS OF BREATH" RR 37 O2 SATS 87% PULSE 110 RISKS: LARGE PNEUMOTHORAX H/O COPD ADENOCARCINOMA OF ESOPHAGUS TREATMENT: BIPAP CHEST TUBE PLACEMENT CRITICAL CARE MONITORING PULMONARY CONSULT [employer] 2015 [employer]. All Rights Reserved RADHA [email or web address] Office: [phone] [facility]
[2017-07-21] MEDS: CEFAZOLIN 1 GM, Admixture Fee 1 EACH in Sodium Chloride 0.9% 100 ML IVPB SCH (21:41)
[2017-07-21] MEDS: Loratadine 10 MG TAB PO SCH (21:42)
[2017-07-21] MEDS: Aspirin 81 mg Enteric Coated Tablet PO SCH (21:42)
[2017-07-22 04:22] LABS: Hematocrit 27.6 % (42.0-52.0)
[2017-07-22] MEDS: CEFAZOLIN 1 GM, Admixture Fee 1 EACH in Sodium Chloride 0.9% 100 ML IVPB SCH ×3 (06:27→22:05)
[2017-07-22] MEDS: Mometasone/Formoterol 120 PUFF INHALER INH SCH ×2 (07:43→18:50)
--- NOTE | 2017-07-22 08:25 | RAD ---
PORTABLE CHEST 1 VIEW: Date: 07/22/17 Time: 0255 hours HISTORY: Chest tube. FINDINGS/IMPRESSION: Comparison made with exam from previous day. Changes of median sternotomy are again seen. Right-sided Port-A-Cath and right-sided chest tube deacon in in place. The heart size is enlarged. Subcutaneous emphysema in the right lateral chest wall is r edemonstrated. There is suggestion of small right pneumothorax. There are patchy opacities in the david ng samuel bilaterally with mild interval improvement in the aeration of the lungs. A small left pleu ral effusion is present. POS: [facility]
[2017-07-22] MEDS: Carvedilol 3.125 MG TAB PO SCH ×2 (08:41→20:08)
[2017-07-22] MEDS: guaiFENesin ER 600 MG TAB PO SCH ×2 (08:42→20:08)
[2017-07-22] MEDS: Furosemide 20 MG TAB PO SCH (08:42)
[2017-07-22] MEDS ORDERED: Senokot S 8.6-50 MG TAB PO SCH (09:45)
--- NOTE | 2017-07-22 10:11 | PRG ---
DATE OF SERVICE: 07/22/2017 SERVICE: Pulmonary Medicine. INTERVAL HISTORY: The patient is doing great from a cardiovascular and respiratory standpoint. He denies any shortness of breath or chest discomfort. He continues to have a very persistent air leak . Otherwise, there are no other overnight events. He had a bowel movement since being here and is interested in perhaps having a stool softener. PHYSICAL EXAMINATION: VITAL SIGNS: Afebrile with T-max of 99.0, pulse 100, blood pressure 118/70, respirations 14, satura tion 93% on room air when his chest tube is to suction. HEENT: Normocephalic, atraumatic. Sclerae are white, conjunctivae pink. Oral mucosa is moist with out lesions. LUNGS: Decent air entry. There is a slight prolonged expiratory phase, but I do not appreciate any wheezing or rhonchi. HEART: Normal rate, regular. ABDOMEN: Soft, nontender, nondistended. Bowel sounds positive. MUSCULOSKELETAL: No cyanosis or clubbing. No pitting in the bilateral lower extremities. NEUROLOGIC: Grossly nonfocal. LABORATORY DATA: Hemoglobin 9.0. IMAGING: Chest x-ray demonstrates good placement of the thoracostomy drain. There is a small rim o f the pneumothorax still present. There is significant subcutaneous emphysema, which is slowly impr oving. Small left pleural effusion is identified. ASSESSMENT: 1. Spontaneous secondary pneumothorax, recurrent. 2. Acute hypoxic respiratory failure, resolved. 3. Obstructive sleep apnea. 4. Chronic obstructive pulmonary disease, minimal. 5. Acute blood loss anemia. PLAN: Pulmonary or Critical Care will continue to follow while the patient remains inhouse. We may need to consider removing the suction and just leaving him to waterseal. His persistent air leak i s may be unlikely to resolve with continued suction. I will discuss this with Dr. Cruz. Stool so ftener will be initiated.
[2017-07-22] MEDS ORDERED: SODIUM CHLORIDE 0.9% IVPB SCH ×2 (12:15→12:30)
[2017-07-22] MEDS ORDERED: TRASTUZUMAB IVPB SCH ×2 (12:15→12:30)
[2017-07-22] MEDS: Aspirin 81 mg Enteric Coated Tablet PO SCH (20:07)
[2017-07-22] MEDS: Loratadine 10 MG TAB PO SCH (20:08)
[2017-07-22] MEDS: Senokot S 8.6-50 MG TAB PO SCH (20:08)
[2017-07-23] MEDS: CEFAZOLIN 1 GM, Admixture Fee 1 EACH in Sodium Chloride 0.9% 100 ML IVPB SCH ×3 (05:26→21:51)
[2017-07-23] MEDS: Mometasone/Formoterol 120 PUFF INHALER INH SCH ×2 (06:37→19:23)
[2017-07-23] MEDS: Senokot S 8.6-50 MG TAB PO SCH ×2 (08:11→20:43)
[2017-07-23] MEDS: guaiFENesin ER 600 MG TAB PO SCH ×2 (08:11→20:43)
[2017-07-23] MEDS: Furosemide 20 MG TAB PO SCH (08:12)
[2017-07-23] MEDS: Carvedilol 3.125 MG TAB PO SCH ×2 (08:12→20:42)
--- OUTSIDE RECORDS SUMMARY | 2017-07-23 08:42 | XMS | Clinical Summary ---
:1945 Author Organization [facility] Address [address] [place] [address] Phone Care Team Providers Name Role Phone TinoKristofer Primary Care Provider tel Allergies No Known Allergies Current Medications Prescription Sig. Disp. Refills Start Date End Date Status rosuvastatin (CRESTOR) 20 Take 10 mg by Active MG tablet mouth daily. ramipril (ALTACE) 2.5 MG Take 2.5 mg by Active capsule mouth daily. furosemide (LASIX) 40 MG Take 20 mg by Active tablet mouth daily. aspirin 325 MG buffered Take 325 mg by Active tablet mouth daily. carvedilol (COREG) 3.125 3.125 mg 2 (two) 08/05/2016 Active MG tablet times a day with meals. diphenhydrAMINE (BENADRYL) Take 25 mg by Active 25 mg tablet mouth nightly as needed for sleep (AT NIGHT NEEDED). Active Problems Problem Noted Date Esophageal perforation 04/17/2017 Essential hypertension 08/26/2016 Type 2 diabetes mellitus 08/26/2016 Cellulitis 05/14/2016 Esophageal cancer 05/03/2016 Encounters Date Type Specialty Care Team Description 07/21/2017 Telephone Cardiothoracic Surgery Gabby Oleary NP 07/18/2017 Telephone Cardiothoracic Surgery Scarlett Giles MA 06/04/2017 Hospital Encounter Cardiothoracic Surgery Joaquin Rizvi MD 06/04/2017 Anesthesia Event Cardiothoracic Surgery Brook Saini MD 06/04/2017 Procedure Pass Cardiothoracic Surgery 06/04/2017 Surgery Cardiothoracic Surgery Joaquin Rizvi EGD W/ william Johnson MD balloon DILATION and esophagram 05/30/2017 Telephone Cardiothoracic Surgery Gabby Oleary NP 05/30/2017 Procedure Pass Cardiothoracic Surgery 05/14/2017 Hospital Encounter Cardiothoracic Surgery Joaquin Rizvi MD 05/14/2017 Anesthesia Event Cardiothoracic Surgery Darshan Alvarado MD 05/14/2017 Procedure Pass Cardiothoracic Surgery 05/14/2017 Surgery Cardiothoracic Surgery Joaquin Rizvi EGD W/ Alex DUNCAN MD esophagram 04/24/2017 Transcribe Orders Cardiothoracic Surgery Joaquin Rizvi Esophageal MD Alex stricture (Primary Dx);Blood tests prior to treatment or procedure;SOB (shortness of breath) from Last 3 Months Social History Tobacco Use Types Packs/Day Years Used Date Former Smoker Cigarettes 1.5 40 Quit: 1999 Smokeless Tobacco: Never Used Tobacco Cessation:Counseling Given: [...] 06/04/2017 10:35 AM CDT Plan of Treatment Date Type Specialty Care Team Description 08/01/2017 Surgery Cardiothoracic Surgery Joaquin Rizvi EDG WITH Alex DUNCAN MD POSSIBLE STENT [address] [place] [address] [phone] 08/01/2017 Procedure Pass Cardiothoracic Surgery 08/01/2017 Hospital Encounter Cardiothoracic Surgery Joaquin Rizvi MD [address] [place], [place] [id number] Health Maintenance Due Date Last Done Comments FOOT EXAM 1954 OPHTHALMOLOGY EXAM 1954 COLONOSCOPY 1994 ZOSTER VACCINE 2004 PNEUMOCOCCAL POLYSACCHARIDE VACCINE AGE 65 AND OVER 2009 PNEUMOCOCCAL-13 2009 INFLUENZA VACCINE 04/29/2017 Implants Implanted Type Area Canvas Worker Apprentice Device Expiration Model / Identifier Date Serial / Lot Dilator Baln Espgl Pylrc Clnc Wire Guided [id number] 6-8mm - [id number] Surgical N/A: N/A [facility] [id number] / Implanted:04/04/2017 (Quantity not on file) Implants; / Expanders; Extenders; Surgical Wires Dilator Baln Espgl Pylrc Clnc Wire Guided [id number] 8-10mm - [id number] Surgical N/A: N/A [facility] [id number] / Implanted:04/17/2017 (Quantity not on file) Implants; / Expanders; Extenders; Surgical Wires Dilator Baln Espgl Pylrc Clnc Wire Guided [id number] 10-12mm - [id number] Surgical N/A: N/A [facility] [id number] / Implanted:04/17/2017 (Quantity not on file) Implants; / Expanders; Extenders; Surgical Wires Dilator Baln Espgl Pylrc Clnc Wire Guided [id number] 10-12mm - [id number] Surgical N/A: N/A [facility] [id number] / Implanted:05/14/2017 (Quantity not on file) Implants; / Expanders; Extenders; Surgical Wires Dilator Baln Espgl Pylrc Clnc Wire Guided [id number] 12-15mm - [id number] Surgical N/A: N/A [facility] [id number] / Implanted:05/14/2017 (Quantity not on file) Implants; / Expanders; Extenders; Surgical Wires Dilator Baln Espgl Pylrc Clnc Wire Guided [id number] 10-12mm - [id number] Surgical N/A: N/A [facility] [id number] / Implanted:06/04/2017 (Quantity not on file) Implants; / Expanders; Extenders; Surgical Wires Dilator Baln Espgl Pylrc Clnc Wire Guided [id number] 15-18mm - [id number] Surgical N/A: N/A [facility] [id number] / Implanted:06/04/2017 (Quantity not on file) Implants; / Expanders; Extenders; Surgical Wires Procedures Procedure Name Priority Date/Time Associated Diagnosis Comments UT AN ELECTIVE Routine 06/04/2017 1:36 PM ENDOTRACHEAL AIRWAY CDT Procedure Note - Ewa Schwartz MD - 06/04/2017 1:34 PM CDT Airway Date/Time: 06/04/2017 1:24 AM Performed by: EWA SCHWARTZ Authorized by: EWA SCHWARTZ Location: OR Urgency: Elective Difficult Airway: No Anesthesiologist: EWA SCHWARTZ Resident/PROGRAMMING COORDINATOR: AI HAIR Performed by: resident/PROGRAMMING COORDINATOR Preoxygenated with 100% O2: Yes C-spine Precautions [...] No Number of Attempts at Approach: 1 UT AN ELECTIVE ENDOTRACHEAL AIRWAY Routine 05/14/2017 10:52 AM CDT Procedure Note - Bala Arana CRNA - 05/14/2017 10:50 AM CDT Airway Date/Time: 05/14/2017 10:30 AM Performed by: BALA ARANA Authorized by: ASHLEIGH CONDON Location: OR Urgency: Elective Difficult Airway: No Anesthesiologist: FLACO ROBERTSON Resident/PROGRAMMING COORDINATOR: BALA ARANA Performed by: anesthesiologist Preoxygenated with 100% O2: [...] Yes Number of Attempts at Approach: 2 from Last 3 Months Results XR Chest 1 Vw Portable (06/04/2017 4:20 PM)Only the most recent of2 resultswithin the time period is included. Specimen Performing Laboratory [facility] [address] [place] [address] Narrative EXAMINATION:XR CHEST 1 VW PORTABLE CLINICAL HISTORY:post op COMPARISON:05/14/2017 IMPRESSION: Right-sided chest port is again noted. Heart and mediastinum stable. Focal area of alveolar infiltrates, right mid lung zone, and to a lesser degree, left midlung zone. Underlying pneumonia suspected.Follow-up recommended. Blunting of the costophrenic angles again noted and may indicate small effusions. [facility]-[id number] Procedure Note Interface, Radiology Results Incoming - [...] again noted and may indicate small effusions. [facility]-[id number] OR FL< 1 Hour (06/04/2017 2:15 PM)Only the most recent of2 resultswithin the time period is included. Specimen Performing Laboratory [facility] [address] [place] [address] Narrative EXAMINATION:OR FL 1 HOUR C-arm fluoroscopy [...] performing theprocedure. [id number] Estimated GFR (06/04/2017 10:34 AM) Component Value Ref Range GFR Non Af [...] and Americans. Specimen Performing Laboratory Plasma specimen [facility] DEPARTMENT OF PATHOLOGY AND GENOMIC MEDICINE [address] [place] [phone] Partial thromboplastin time, activated (06/04/2017 10:34 AM) Component Value Ref Range PTT 29.0 23.0 - 36.0 sec Comment: PTT therapeutic range for unfractionated heparin is 61.0-112.0 seconds which corresponds to Anti-Xa 0.3-0.7 U/ml. Specimen Performing Laboratory Blood [facility] DEPARTMENT OF PATHOLOGY AND GENOMIC MEDICINE [address] [place] [id number] Prothrombin time with INR (06/04/2017 10:34 AM) Component Value Ref Range Prothrombin time 13.8 12.0 - 15.0 sec INR 1.1 Comment: The International Normalized Ratio (INR) is a therapeutic monitoring tool for patients who are stable on oral anticoagulant therapy. An INR of 2.0-3.0 is suggested for deep vein thrombosis/pulmonary embolism. Specimen Performing Laboratory Blood [facility] DEPARTMENT OF PATHOLOGY AND GENOMIC MEDICINE [address] [place] [phone] CBC with platelet and differential (06/04/2017 10:34 AM) Component Value Ref Range WBC 6.89 4.50 [...] (promyelocytes, myelocytes, metamyelocytes) Specimen Performing Laboratory Blood [facility] DEPARTMENT OF PATHOLOGY AND GENOMIC MEDICINE [address] [place] [phone] Basic metabolic panel (06/04/2017 10:34 AM) Component Value Ref Range Sodium 143 135 [...] 10.2 mg/dL Specimen Performing Laboratory Plasma specimen [facility] DEPARTMENT OF PATHOLOGY AND GENOMIC MEDICINE [address] [place] [phone] PET/CT Whole Body External Study (05/13/2017 10:40 AM) Specimen Performing Laboratory [facility] [address] [place] [address] Narrative This exam was not acquired at a [facility] facility and has not been interpreted by a [facility] Provider.The exam was imported into our imaging system for comparisons purposes. from Last 3 Months Insurance Payer Benefit Plan / Group Subscriber ID Type Phone Address [employer] MEDICARE HU[employer]NA MEDICARE PPO/PFFS/ERS [facility] [id number] PPO W [phone] LUIS CALL [phone]
--- OUTSIDE RECORDS SUMMARY | 2017-07-23 08:42 | XMS | Clinical Summary ---
:1945 Author Organization [facility] Address [address] [place] [address] Phone Care Team Providers Name Role Phone [...]
--- NOTE | 2017-07-23 09:23 | RAD ---
PORTABLE CHEST ONE VIEW: Date: 07-23-17 Time: 2:04 a.m. History: Chest tube, pneumothorax. FINDINGS: Comparison made with exam from previous day. The small right apical pneumothorax is stable. Right sided chest tube remains in place. Right analysis intern al jugular port-a-cath position is unchanged. Changes of median sternotomy again seen. The heart siz e is stable. Patchy opacities in the lung samuel bilaterally are again seen. Subcutaneous emphysema in the right lateral chest wall is redemonstrated. Small bilateral pleural effusions are present. IMPRESSION: Stable small right apical pneumothorax. POS: [facility]
--- NOTE | 2017-07-23 12:38 | PRG ---
DATE OF SERVICE: 07/23/2017 SERVICE: Pulmonary Medicine. INTERVAL HISTORY: The patient is doing fine from a cardiovascular and respiratory standpoint. He d enies any shortness of breath or chest discomfort. Otherwise, he is in his usual state of health. He continues to have a persistent air leak. PHYSICAL EXAMINATION: VITAL SIGNS: Afebrile, pulse 95, blood pressure 145/69, respirations 16, saturation 97% on room air . GENERAL: The patient is awake, alert, in no apparent distress. LUNGS: Excellent air entry. Slight prolonged expiratory phase with no rhonchi, wheezing or crackle s. HEART: Normal rate, regular. ABDOMEN: Soft, nontender, and nondistended. Bowel sounds positive. MUSCULOSKELETAL: No cyanosis or clubbing. No pitting in the bilateral lower extremities. NEUROLOGIC: Grossly nonfocal. IMAGING: Chest x-ray demonstrates small residual pneumothorax with chest tube in decent position. Side port is within the chest wall. There is a small right-sided pleural effusion. There is also a small left-sided pleural effusion. ASSESSMENT: 1. Acute hypoxic respiratory failure, resolved. 2. Secondary spontaneous pneumothorax, recurrent. 3. Obstructive sleep apnea. 4. Chronic obstructive pulmonary disease, minimal. 5. Acute blood loss anemia. PLAN: We will continue to observe the patient in the hospital for the time being. He continues to have a persistent small air leak. Hopefully, this will heal on its own. I will talk to Dr. Cruz about discontinuing the suction. Pulmonary or Critical Care will continue to follow while the patie nt remains inhouse.
[2017-07-23] MEDS: Aspirin 81 mg Enteric Coated Tablet PO SCH (20:41)
[2017-07-23] MEDS: Loratadine 10 MG TAB PO SCH (20:41)
[2017-07-24] MEDS: CEFAZOLIN 1 GM, Admixture Fee 1 EACH in Sodium Chloride 0.9% 100 ML IVPB SCH ×3 (06:01→21:37)
[2017-07-24] MEDS: Mometasone/Formoterol 120 PUFF INHALER INH SCH ×2 (07:39→19:04)
--- NOTE | 2017-07-24 08:12 | RAD ---
PORTABLE CHEST: History: Follow up, chest tube. Comparison: 07-23-17 FINDINGS: Right chest tube is unchanged. A small right pneumothorax is again seen and is unchanged in size fro m yesterday. Subcutaneous emphysema. Patchy areas of atelectasis and/or infiltrate in the lower lung samuel and there is evidence of small bilateral effusions. IMPRESSION: Chest is unchanged from yesterday. POS: [facility]
[2017-07-24] MEDS: Furosemide 20 MG TAB PO SCH (09:27)
[2017-07-24] MEDS: Carvedilol 3.125 MG TAB PO SCH ×2 (09:27→21:36)
[2017-07-24] MEDS: guaiFENesin ER 600 MG TAB PO SCH ×2 (09:27→21:36)
[2017-07-24] MEDS: Senokot S 8.6-50 MG TAB PO SCH ×2 (09:27→21:37)
--- NOTE | 2017-07-24 18:18 | PRG ---
DATE OF SERVICE: 07/24/2017 SERVICE: Pulmonary Medicine. INTERVAL HISTORY: The patient is doing fine from a respiratory standpoint. He is breathing comfort ably this morning. He has a fairly persistent air leak. He currently denies any fevers, chills, na usea, vomiting or chest discomfort. Otherwise, there has been no significant interval change to his condition. We have taken his chest tube off of suction this morning. He is breathing comfortably and not requiring any supplemental oxygen for the time being. There were no overnight events. PHYSICAL EXAMINATION: VITAL SIGNS: Afebrile, pulse 86, respirations 14, and saturation 94% on room air. GENERAL: Patient is awake, alert, in no apparent distress. LUNGS: Decent air entry. There is decreased air entry on the right. There is good air entry on th e left with minimally prolonged expiratory phase without wheezing, rhonchi or crackles. HEART: Normal rate and regular. ABDOMEN: Soft, nontender, nondistended. Bowel sounds positive. MUSCULOSKELETAL: No cyanosis or clubbing. No pitting in the bilateral lower extremities. NEUROLOGIC: Grossly nonfocal. IMAGING: Chest x-ray demonstrates good expansion of the right lung. There is a rim of apical pneum othorax but outside of that, there is no acute cardiopulmonary abnormality. Thoracostomy drains are unchanged. ASSESSMENT: 1. Acute hypoxic respiratory failure. 2. Secondary spontaneous pneumothorax. 3. Mild chronic obstructive pulmonary disease without current exacerbation. 4. Obstructive sleep apnea. PLAN: I will decrease his nebulized medications to three times daily so that we are not waking him up in the middle of the night with these things. I will get rid of the mechanical soft specificatio ns to his diet. Otherwise, we will remain in a holding pattern for the time being. I have removed the chest tube from suction in hopes that the visceral deficit will heal itself. Unfortunately, my suspicion is that patient may require surgical intervention in order to patch this whole. I do not think pleurodesis is a fantastic option for the patient because he has had a previous pleurodesis on the opposite side when he was in his 20s, so far as I can tell. Pulmonary will continue to follow for the time being.
[2017-07-24] MEDS: Loratadine 10 MG TAB PO SCH (21:36)
[2017-07-24] MEDS: Aspirin 81 mg Enteric Coated Tablet PO SCH (21:36)
[2017-07-25] MEDS: Mometasone/Formoterol 120 PUFF INHALER INH SCH ×2 (06:19→19:45)
[2017-07-25] MEDS: CEFAZOLIN 1 GM, Admixture Fee 1 EACH in Sodium Chloride 0.9% 100 ML IVPB SCH ×3 (07:04→22:02)
[2017-07-25] MEDS: Furosemide 20 MG TAB PO SCH (08:00)
[2017-07-25] MEDS: Carvedilol 3.125 MG TAB PO SCH ×2 (08:00→20:44)
[2017-07-25] MEDS: Senokot S 8.6-50 MG TAB PO SCH ×2 (08:03→20:40)
[2017-07-25] MEDS: guaiFENesin ER 600 MG TAB PO SCH ×2 (08:03→20:39)
--- NOTE | 2017-07-25 10:17 | RAD ---
PORTABLE CHEST 1 VIEW: Date: 07/25/17 Time: 0818 hours HISTORY: Pneumothorax, chest tube. FINDINGS/IMPRESSION: Changes of median sternotomy are again seen. Right-sided chest tube remains in place. Right internal jugular Port-A-Cath position is unchanged. The small right apical pneumothorax is stable. Subcutane ous emphysema in the right lateral chest is again seen. Patchy densities in the lungs are again note d. There is pneumothorax at the right lung base as well, which was not seen on the previous exam. Th is may be loculated. POS: [facility]
--- NOTE | 2017-07-25 17:15 | PRG ---
DATE OF SERVICE: 07/25/2017 SERVICE: Pulmonary Medicine. INTERVAL HISTORY: The patient is doing fine from a cardiovascular and respiratory standpoint. He d enies any current fevers, chills, nausea, vomiting or chest discomfort. He is otherwise in his [facility] state of health. He has no specific complaints. He is tolerating being off of suction. That desi duckworth said, chest x-ray this morning showed an increase in size of pneumothorax. His lungs is tacked u p to chest wall in multiple different locations. PHYSICAL EXAMINATION: VITAL SIGNS: Afebrile, pulse 95, blood pressure 121/78, respirations 18, saturation 97% on room air . GENERAL: Patient is awake, alert, in no apparent distress. LUNGS: Decreased air entry. There is mild prolonged expiratory phase. There is decreased air entr y on the right. No wheezing or rhonchi are appreciated. HEART: Normal rate, regular. ABDOMEN: Soft, nontender, nondistended. Bowel sounds positive. MUSCULOSKELETAL: No cyanosis or clubbing. There is no pitting in the bilateral lower extremities. NEUROLOGIC: Grossly nonfocal. IMAGING: Chest x-ray increased a return of the pneumothorax. The chest tube is in good position. Catheter is unchanged. ASSESSMENT: 1. Spontaneous secondary pneumothorax. 2. Acute hypoxic respiratory failure, resolved. 3. Mild chronic obstructive pulmonary disease without current exacerbation. 4. Obstructive sleep apnea. 5. Esophageal cancer. 6. History of left-sided pneumothorax status post pleurodesis. 7. History of right-sided pneumothorax prior to this admission. PLAN: We will give this thing a little bit more time to see if the leak will slow down or stop on i ts own. Given its persistence, and the size of the leak, I am doubtful that this is going to be the case. More than likely, he will require surgical intervention early next week or over the weekend in order to close the lacerated lung. We will continue to provide supportive care for the patient w teresa we gave this time to heal over.
[2017-07-25] MEDS: Aspirin 81 mg Enteric Coated Tablet PO SCH (20:40)
[2017-07-25] MEDS: Loratadine 10 MG TAB PO SCH (20:40)
--- NOTE | 2017-07-25 20:52 | DIS ---
REASON FOR ADMISSION: Right pneumothorax. CLINICAL RESUME: The patient is a 71-year-old male, who underwent recent robotic esophagectomy via the right chest for esophageal cancer at [facility]. He had received preoperative chemoradia tion. He presented here 1 week ago with a right pneumothorax. The ER physician placed a right ches t tube, which unfortunately was placed directly into the right lung parenchyma. This led to substan tial bleeding. I was subsequently called and placed a chest tube in the loculated appearing pneumot horax space. Bleeding abated, however, a large air leak has persisted. Recommendation was made to proceed with elective thoracotomy for control. Patient and his , however, wished to return to [facility] to be managed for this problem by their thoracic surgeon. This physician has accep lynsey the patient in transfer. Patient was already scheduled to be seen earlier this week for repeat esophageal dilatation. The patient will be transferred with the existing chest tube connected to Pl eur-evac on waterseal and placed back to suction once he arrives at the receiving facility. DIET: Pureed. TRANSFER MEDICATIONS: Aspirin 81 mg daily, Coreg 3.125 mg b.i.d., Lasix 20 mg daily, Dulera inhaler b.i.d., Altace 2.5 mg daily, Crestor 20 mg daily, and multiple p.r.n. medications. Transfer hemogl obin 9.0 and 27.6, respectively. The patient did receive a single donor pack of platelets the night of presentation to assist in hemostasis. No other transfusions were required.
[2017-07-26] MEDS: CEFAZOLIN 1 GM, Admixture Fee 1 EACH in Sodium Chloride 0.9% 100 ML IVPB SCH ×2 (05:51→13:51)
[2017-07-26] MEDS: Mometasone/Formoterol 120 PUFF INHALER INH SCH ×2 (06:32→19:33)
--- NOTE | 2017-07-26 08:34 | RAD ---
CHEST 1 VIEW: Date: 07/26/17 COMPARISON: 07/25/17. HISTORY: Pneumothorax. FINDINGS: Stable right-sided chest tube and right-sided MediPort catheter. Right-sided pneumothorax does persi stent. There is stable subcutaneous emphysema left hemithorax. IMPRESSION: No significant interval change. POS: [facility]
[2017-07-26] MEDS: Furosemide 20 MG TAB PO SCH (09:31)
[2017-07-26] MEDS: guaiFENesin ER 600 MG TAB PO SCH ×2 (09:31→20:08)
[2017-07-26] MEDS: Carvedilol 3.125 MG TAB PO SCH ×2 (09:31→20:08)
[2017-07-26] MEDS: Senokot S 8.6-50 MG TAB PO SCH (09:51)
[2017-07-26] MEDS: Loratadine 10 MG TAB PO SCH (20:07)
[2017-07-26] MEDS: Aspirin 81 mg Enteric Coated Tablet PO SCH (20:07)
[2017-07-26 20:11] VITALS: BP 116/59; TEMP 97
== END 2017-07-26 20:20 | disposition short-term general hospital (02) | DRG 199 ==
LOC: ERS 18:23 → CCU 23:00 → ONC 07-21 10:39
PROVIDERS: ADMIT Thoracic Surgery (Cardiothoracic Vascular Surgery); ATTEND Thoracic Surgery (Cardiothoracic Vascular Surgery)
PROC: 0W9930Z Drainage of Right Pleural Cavity with Drainage Device, Percutaneous Approach (ICD-10-PCS; principal; 2017-07-18)
PROC: 0W9930Z Drainage of Right Pleural Cavity with Drainage Device, Percutaneous Approach (ICD-10-PCS; 2017-07-19)
PROC: 30233R1 Transfusion of Nonautologous Platelets into Peripheral Vein, Percutaneous Approach (ICD-10-PCS; 2017-07-19)
DX: J93.12 Secondary spontaneous pneumothorax (principal); J96.01 Acute respiratory failure with hypoxia; C15.9 Malignant neoplasm of esophagus, unspecified; D62 Acute posthemorrhagic anemia; J98.2 Interstitial emphysema; Z99.81 Dependence on supplemental oxygen; J93.83 Other pneumothorax; I25.10 Atherosclerotic heart disease of native coronary artery without angina pectoris; Z95.1 Presence of aortocoronary bypass graft; Z90.49 Acquired absence of other specified parts of digestive tract; I10 Essential (primary) hypertension; E78.5 Hyperlipidemia, unspecified; Z92.21 Personal history of antineoplastic chemotherapy; Z92.3 Personal history of irradiation; Z95.828 Presence of other vascular implants and grafts; Z87.891 Personal history of nicotine dependence; J44.9 Chronic obstructive pulmonary disease, unspecified; G47.33 Obstructive sleep apnea (adult) (pediatric); E11.9 Type 2 diabetes mellitus without complications; Z79.82 Long term (current) use of aspirin
CPT/HCPCS: 32551; 36415; 36430; 71010; 80048; 80053; 82553; 82805; 83605; 83690; 83735; 83880; 84484; 85014; 85018; 85025; 85610; 86850; 86900; 86901; 87040; 93005; 94640; 94660; 94760; 96361; 96365; 96375; 99152; 99153; 99292; A4216; G8978-GP-CJ; G8979-GP-CJ; G8980-GP-CJ; J0690; J1642; J1885; J2001; J2250; J2543; J2704; J2930; J3010; J7050; J7620; J9355; P9035

== ENCOUNTER 2017-09-02 11:06 | Outpatient (CLI) | payer MEDICARE ==
--- NOTE | 2017-09-02 18:55 | PET ---
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 Exam is reques lynsey for restaging. TECHNIQUE: PET scan with CT attenuation correction was performed from the base of the brain to the proximal thig hs following the intravenous administration of 12 millicuries of 13-fluorodeoxyglucose in the right P ort-A-Cath. Imaging was performed after an uptake interval of 44 minutes. COMPARISON: PET CT dated 05/13/17. FINDINGS: No david hypermetabolism is seen in the neck, mediastinum, hilar, axillary regions, abdomen or pelvis . There is focally increased uptake in the right paraspinal region posterior to the esophagus above t he level of the antoni with an SUV of 2.6. This is new since the last exam. Soft tissue density in th e right paraspinal subcarinal region has an SUV of 2.2 and consolidation in the right paraspinal lung base has an SUV of 2.2. On the previous exam, the right paraspinal FDG avid focus in the subcarinal location had an SUV of 2.9 (currently 2.2). No hypermetabolic liver, adrenal or skeletal lesions are seen. There is physiologic activity in the heart, GI, tracts and the visualized portions of the brain. The CT scan used for attenuation correction demonstrates bilateral pleural effusions, right greater t amor left. No ascites is noted. Pleural effusions are noted on the previous exam as well. IMPRESSION: Focally increased FDG uptake in the right paraspinal region (above the antoni) is new since 05/13/17 a nd should be considered suspicious. POS: [facility]
== END 2017-09-02 11:07 | disposition home or self-care (01) ==
LOC: PET 11:06
PROVIDERS: ATTEND Internal Medicine Hematology & Oncology
DX: C15.9 Malignant neoplasm of esophagus, unspecified (principal)
CPT/HCPCS: 78815; A9552

== ENCOUNTER 2017-11-28 11:13 | Outpatient (CLI) | payer MEDICARE ==
--- NOTE | 2017-11-28 13:10 | RAD ---
CHEST 2 VIEWS: HISTORY: Dyspnea. COMPARISON: 07/26/17. FINDINGS: Cardiac silhouette is enlarged. Pulmonary vasculature is upper limits of normal. Mediastinum is mid line with aortic calcification, postoperative changes, multilead left subclavian cardiac electronic d evice, and a right internal jugular MediPort. Patchy bibasilar infiltrates and bilateral pleural flu id are present. Linear density projecting over the right lung base has the appearance of fluid withi n the fissure. IMPRESSION: 1. Cardiomegaly with mild pulmonary vascular congestion. Small bilateral pleural effusions. 2. Chronic obstructive pulmonary disease. 3. Atherosclerosis. POS: [facility]
== END 2017-11-28 11:14 | disposition home or self-care (01) ==
LOC: RAD 11:13
PROVIDERS: ATTEND Internal Medicine
DX: R06.00 Dyspnea, unspecified (principal); J44.9 Chronic obstructive pulmonary disease, unspecified; I51.7 Cardiomegaly; I70.90 Unspecified atherosclerosis; R09.89 Other specified symptoms and signs involving the circulatory and respiratory systems; J90 Pleural effusion, not elsewhere classified
CPT/HCPCS: 71046

== ENCOUNTER 2018-01-17 18:45 | Inpatient (IN) | payer MEDICARE ==
[~2018-01-17 18:45] MED LIST: ISOVUE-370 76%-LOCM 1 ML ONE
[2018-01-17 19:12] LABS: #Basophils 0.1 thou/uL (0.0-0.2); #Eosinphils 0.5 thou/uL (0.0-0.7); #Lymphocytes 1.1 thou/uL (1.20-3.40); #Monocytes 0.9 thou/uL (0.11-0.59); #Neutrophils 5.1 thou/uL (1.40-6.50); %Basophils 0.8 % (0.0-1.0); %Eosinophils 6.5 % (0.0-10.0); %Lymphocytes 14.9 % (21.0-51.0); %Monocytes 11.4 % (0.0-10.0); %Neutrophils 66.5 % (42.0-75.0); Hemoglobin 12.1 g/dL (14.0-18.0); Mean Corpuscular HGB CONC 31.3 g/dL (32.0-36.0); Mean Corpuscular Hemoglobin 28.2 pg (27.0-31.0); Mean Corpuscular Volume 90.2 fl (80.0-94.0); Platelet Count 272 thou/uL (130-400); RBC Distribution Width 16.4 % (11.5-14.5); Red Blood Cell (RBC) Count 4.27 mill/uL (4.70-6.10); White Blood Cell (WBC) Count 7.6 thou/uL (4.8-10.8)
--- NOTE | 2018-01-17 19:19 | RAD ---
PORTABLE AP CHEST X-RAY 01/17/18 HISTORY: Pneumothorax. Patient reports shortness of breath. Difficulty breathing which started one hour ago. COMPARISON: 11/28/17. FINDINGS: A right internal vein Mediport catheter remains in place. A triple lead left subclavian cardiac pacem aking device is also again noted in place. The cardiac silhouette is enlarged. Postsurgical changes r elated to median sternotomy are again present. There are bibasilar pleural and parenchymal lung ray es which may represent bilateral pleural effusions and atelectasis. Infiltrates related to pneumonia cannot be excluded. There are mild chronic lung changes seen in each lung apex with symmetric biapica l pleural and parenchymal scarring with suggestion of emphysematous changes as well. There is gaseous distention of the esophagus also seen on prior studies. IMPRESSION: 1. Mild bibasilar pleural and parenchymal lung changes may represent bilateral pleural effusions and atelectasis, but infiltrates related to pneumonia is a possibility. Followup chest x-ray is aileen mmended. 2. Cardiomegaly without overt CHF. 3. Mild chronic lung changes. 4. No evidence of a pneumothorax. POS: [facility]
[2018-01-17 19:34] LABS: ALT (SGPT) 16 U/L (8-55); AST (SGOT) 30 U/L (5-34); Albumin 3.6 g/dL (3.4-4.8); Alkaline Phosphatase 127 U/L (40-150); Anion Gap 14 mmol/L (10-20); BUN (Urea Nitrogen) 22 mg/dL (8.4-25.7); Bilirubin, Total 0.5 mg/dL (0.2-1.2); Calc. Creatinine Clearance 0 mL/min (70-130); Calcium 9.2 mg/dL (7.8-10.44); Carbon Dioxide 27 mmol/L (23-31); Chloride 104 mmol/L (98-107); Estimated GFR-MDRD Greater than 90; Globulin 4.1 g/dL (2.4-3.5); Glucose 124 mg/dL (83-110); Potassium 4.5 mmol/L (3.5-5.1); Protein, Total 7.7 g/dL (5.8-8.1); Sodium 140 mmol/L (136-145)
[2018-01-17 19:38] LABS: CKMB 1.9 ng/mL (0-6.6)
[2018-01-17] MEDS ORDERED: methylPREDNISolone Sod Succ/PF 125 MG/2 ML VIAL ONE ×2 (19:50→21:10)
[2018-01-17] MEDS ORDERED: Furosemide 40 MG/4 ML VIAL ONE (21:10)
[2018-01-17] MEDS ORDERED: Enoxaparin Sodium 100 MG/ML SYRINGE ONE (21:10)
[2018-01-17 21:42] LABS: Bilirubin Negative (Negative); Blood, Urine Negative (Negative); Clarity CLEAR (Clear); Glucose, Urine (Dipstick) Negative (Negative); Leukocyte Negative (Negative); Nitrite Negative (Negative); Protein, Urine (Dipstick) Negative (Neg-Trace); pH, Urine 6.5 (5.0-9.0)
[2018-01-17 21:45] LABS: Specific Gravity, Urine 1.053 (1.002-1.036)
--- NOTE | 2018-01-17 22:26 | CT ---
CT ANGIOGRAM THORAX WITH IV CONTRAST AND 3D RECONSTRUCTIONS 01/17/18 HISTORY: Dyspnea. Shortness of breath for a few days. Patient also reports chest pressure which started today. COMPARISON: PET CT examination on 09/02/[address] angiogram chest on 09/02/16. FINDINGS: No filling defects are seen in the pulmonary arteries to suggest a pulmonary embolus. The heart is enlarged. Vascular calcifications are seen in the coronary arteries as well as involving the thoracic aorta. Th e thoracic aorta is normal in caliber without evidence of an aortic dissection. Again noted are postsurgical changes related to gastric pull through. There is a small amount of flui d seen within the lower mediastinum in a subcarinal location, but this is stable from the prior exam. There are bilateral pleural effusions with atelectasis present at the left lung base. The pleural flu id at the right lung base may be partially loculated. There is pleural thickening and/or pleural flui d along the right lateral chest as well. There is parenchymal opacity seen within the medial aspect o f the right upper lobe which was present on the prior study. Additional interstitial and patchy paren chymal changes are also seen in the posterior and lateral aspect of the right upper lobe. Parenchymal opacity is also again seen at the right lung base. Findings could be related to areas of scarring an d/or atelectasis, but more acute process such as pneumonia cannot be entirely excluded. There is an o kalli shaped hypodense area seen in the major fissure on the left which is probably related to pseudotu mor related to pleural fluid within the major fissure on the left. Attenuation coefficient is unable to be evaluated due to significant artifact from the power pack device from left subclavian AICD anya ce. There is soft tissue density seen within the left hilar region which could be related to lymphade nopathy. Upper abdomen has a grossly normal CT appearance for arterial phase of imaging. Vascular calcificatio ns are seen in the upper abdomen. No lytic or sclerotic osseous lesions are appreciated. A right internal jugular vein Mediport catheter remains in place. IMPRESSION: 1. Moderate sized bilateral pleural effusions. Pleural fluid at the right lung base may be parti ally loculated. There are oval shaped areas of decreased attenuation in the superior aspect of the ma kita fissure on the left which were not seen on prior studies and are likely related to pseudotumor se condary to pleural fluid within the major fissure. However, an accurate attenuation coefficient is un able to be obtained due to significant streak artifact through this region. 2. Air space opacities including interstitial and parenchymal opacities within the right upper l obe with greater area of consolidation at the right lung base. These findings were seen on the study in 2017 and while some of these findings are probably chronic in origin, a more acute infectious proc ess is a possibility. 3. Pleural density along the right lateral chest and in a paramediastinal location at the right lung base is probably related to pleural fluid, although pleural thickening is a possibility. Similar finding but to a lesser extent is seen in the anterior aspect left mid lung zone. 4. Postsurgical changes related to gastric pull through. 5. Probable left hilar lymphadenopathy. 6. Stable small amount of fluid within the posterior mediastinum. 7. Cardiomegaly. 8. No CT evidence for a pulmonary embolus. POS: [facility]
[2018-01-17] MEDS ORDERED: Bisacodyl 5 MG TAB PO PRN (22:34)
[2018-01-17] MEDS ORDERED: Acetaminophen 325 MG TAB PO PRN ×2 (22:34→22:37)
[2018-01-17] MEDS ORDERED: Acetaminophen 650 MG Suppository PR PRN (22:34)
[2018-01-17] MEDS ORDERED: HYDROcodone/Acetaminophen 5/325 mg Tablet PO PRN ×2 (22:37)
[2018-01-17] MEDS ORDERED: Ondansetron HCl/PF 4 MG/2 ML Vial IVP PRN (22:37)
[2018-01-17] MEDS ORDERED: Ondansetron ODT 4 MG TAB SL PRN (22:37)
--- NOTE | 2018-01-17 23:09 | HP ---
PRIMARY CARE PHYSICIAN: Dr. Megha Dhillon. CHIEF COMPLAINT: Shortness of breath. HISTORY OF PRESENT ILLNESS: Mr. Cheng is a pleasant 72-year-old gentleman who was seen at [facility] on 01/17/2018. He reports that he had pneumothorax in 06/2017. After that, his Cardiovascular Surgeon advised him n ot to use CPAP because of worry regarding recurrence of pneumothorax. He reports that he has not bee n sleeping well over the last several days. Early in the week, he started using CPAP at night time. He reports that he has been sleeping better. He reports that his breathing got worse over the last couple of days. He reports orthopnea. He also reports exertional dyspnea. He denies any nausea or vomiting. He denies any chest pain, fevers, or chills. He reports that the shortness of breath worsened today while he was watching the of former fi rst lady on television. He therefore came to the emergency room. He also reports occasional wheezin g. He reports cough that is nonproductive. REVIEW OF SYSTEMS: The following complete review of systems was negative, unless otherwise mentioned in the HPI or below: Constitutional: Weight loss or gain, ability to conduct usual activities. Sk in: Rash, itching. Eyes: Double vision, pain. ENT/Mouth: Nose bleeding, neck stiffness, pain, te nderness. Cardiovascular: Palpitations, dyspnea on exertion, orthopnea. Respiratory: Shortness of breath, wheezing, cough, hemoptysis, fever, or night sweats. Gastrointestinal: Poor appetite, abdo mabel pain, heartburn, nausea, vomiting, constipation, or diarrhea. Genitourinary: Urgency, frequen cy, dysuria, nocturia. Musculoskeletal: Pain, swelling. Neurologic/Psychiatric: Anxiety, depressi on. Allergy/Immunologic: Skin rash, bleeding tendency. PAST MEDICAL HISTORY: Significant for coronary artery disease, dyslipidemia, hypertension, esophagea l cancer, and pneumothorax. PAST SURGICAL HISTORY: Significant for esophagectomy, surgery for collapsed lung, right lung punctur e with chest tube in 06/2017, MediPort placement, coronary artery bypass graft x4 vessels, right shou lder cuff surgery, left wrist surgery, esophageal dilatations and pacemaker with defibrillator placed in 09/2017. SOCIAL HISTORY: Patient is an ex-smoker. He denies alcohol use or recreational drug use. FAMILY HISTORY: No family history of premature coronary artery disease. CODE STATUS: I discussed his code status. He is FULL CODE. His is substitute decision maker. ALLERGIES: No known drug allergies. CURRENT MEDICATIONS: Include Lasix 40 mg daily, aspirin 81 mg daily, loratadine 10 mg daily, and Cre stor 10 mg daily. PHYSICAL EXAMINATION: GENERAL: Mr. Cheng is awake and alert, not in acute distress. VITAL SIGNS: Blood pressure is 144/91, pulse is 90, he is breathing at rate of 22, and saturating 10 0% on 2 liters of oxygen. He is afebrile. EYES: No scleral icterus, no conjunctival pallor. ENT: Moist mucosal membranes, no oropharyngeal erythema or exudates. NECK: Supple, nontender, normal range of movement. Trachea is midline. He has jugular venous diste ntion. RESPIRATORY: Accessory muscles of breathing are not active. Chest wall movements are symmetric bila terally. Lung examination reveals right upper lobe bronchial breathing. Patient has occasional expi ratory wheeze. CARDIOVASCULAR: S1 and S2 are heard, regular. Peripheral pulses palpable. No carotid bruit, no per icardial rub. NEUROLOGIC: Cranial nerves II-XII intact. Deep tendon reflexes are 2+. MUSCULOSKELETAL: Power is 5/5 in all 4 extremities. SKIN: No rashes or subcutaneous nodules. EXTREMITIES: There is no lower extremity edema. LYMPHATIC: No cervical lymphadenopathy. PSYCHIATRIC: Patient is oriented to person, place and time, has normal mood and normal affect. LABORATORY DATA: Mr. Cheng's labs and investigations were reviewed. I reviewed his electrocardio gram, which shows atrial-sensed ventricular paced rhythm, no ST changes to suggest an acute coronary syndrome. I also reviewed his chest x-ray, which shows bilateral pleural effusions and atelectasis. He has cardiomegaly. He also had a CT angiogram of the chest. There is no pulmonary embolism, but he has moderate-sized bilateral pleural effusions and airspace opacities including interstitial and p arenchymal opacities in the right upper lobe with greater area of consolidation at the right lung bas e. The radiologist feels that most of these changes are probably chronic in origin, but more acute i nfectious process is a possibility. He has a normal white count, normocytic anemia with hemoglobin 1 2.1, normal platelet count, elevated D-dimer of 2.53, unremarkable comprehensive metabolic profile, i ndeterminate troponin I of 0.140, elevated BNP of 888 and unremarkable urinalysis. ASSESSMENT AND PLAN: Mr. Cheng is a pleasant 72-year-old gentleman who was seen at [facility] on 01/17/2018. His problem list includes: 1. Shortness of breath: Etiology unclear at this time, more likely related to chronic obstructive p ulmonary disease exacerbation or reactive airways disease, given his wheezing. Pneumonia is also a p ossibility; however, he does not have any fever or leukocytosis. Patient will be admitted to the [facility] and treated with bronchodilators and oxygen as needed. We will also start him on steroids. He has already received a dose of cefepime and vancomycin, we will continue cefepime for now. We will consult Pulmonology for opinion. 2. Congestive heart failure exacerbation: Suspected, based on elevated BNP. We will treat him with intravenous furosemide. Emergency room physician has already consulted application development team lead on-call. 3. Elevated troponin: Patient will be admitted to telemetry and troponin will be rechecked. Caio gregg currently denies any chest pain or having had any chest pain prior to arrival. 4. Hypertension: Monitor vital signs, titrate antihypertensives as needed. 5. Dyslipidemia: Continue statin. Many thanks for allowing me to participate in your patient's care. Please feel free to contact me wi th any questions or concerns. LEVEL OF RISK: High. LEVEL OF COMPLEXITY: High.
[2018-01-17 23:48] LABS: Troponin I 0.167 ng/mL (< 0.028)
[2018-01-18 00:04] VITALS: BMI 25.6
[2018-01-18 01:53] LABS: Troponin I 0.131 ng/mL (< 0.028)
[2018-01-18 05:13] LABS: #Lymphocytes 0.7 thou/uL (1.20-3.40); #Monocytes 0.1 thou/uL (0.11-0.59); #Neutrophils 7.2 thou/uL (1.40-6.50); %Basophils 0.2 % (0.0-1.0); %Eosinophils 0.1 % (0.0-10.0); %Lymphocytes 8.1 % (21.0-51.0); %Monocytes 1.1 % (0.0-10.0); %Neutrophils 90.6 % (42.0-75.0); Hemoglobin 11.8 g/dL (14.0-18.0); Mean Corpuscular Hemoglobin 28.3 pg (27.0-31.0); Mean Corpuscular Volume 88.4 fl (80.0-94.0); Mean Platelet Volume 7.9 fL (7.4-10.4); Platelet Count 245 thou/uL (130-400); RBC Distribution Width 15.9 % (11.5-14.5); Red Blood Cell (RBC) Count 4.16 mill/uL (4.70-6.10)
[2018-01-18 05:17] LABS: Anion Gap 11 mmol/L (10-20); BUN (Urea Nitrogen) 20 mg/dL (8.4-25.7); Calc. Creatinine Clearance 123 mL/min (70-130); Calcium 9.6 mg/dL (7.8-10.44); Carbon Dioxide 30 mmol/L (23-31); Chloride 102 mmol/L (98-107); Estimated GFR-MDRD Greater than 90; Glucose 192 mg/dL (83-110); Potassium 3.6 mmol/L (3.5-5.1); Sodium 139 mmol/L (136-145)
[2018-01-18] MEDS: Furosemide 40 MG/4 ML VIAL SLOW IVP SCH ×2 (06:15→15:25)
[2018-01-18] MEDS: Cefepime 2 GM, Syringe 2.5 ML in Sodium Chloride 0.9% 10 ML SLOW IVP SCH (08:30)
[2018-01-18] MEDS ORDERED: Prevnar 13-Val Conj/PF 0.5 ML SYRINGE IM ONE (09:00)
[2018-01-18] MEDS ORDERED: Enoxaparin Sodium 40 MG/0.4 ML SYRINGE SC SCH (09:00)
[2018-01-18] MEDS ORDERED: Cefepime 2 GM in Sodium Chloride 0.9% 100 ML IVPB SCH (09:00)
[2018-01-18] MEDS ORDERED: Aspirin 81 mg Enteric Coated Tablet PO SCH (11:30)
[2018-01-18] MEDS ORDERED: Spironolactone 25 MG TAB PO SCH (11:30)
[2018-01-18] MEDS ORDERED: Potassium Chloride 20 MEQ TAB PO SCH ×2 (12:00→18:00)
--- NOTE | 2018-01-18 12:26 | PDOC.PN ---
- Subjective Encounter Start Date: 01/18/18 Encounter Start Time: 12:25 - Objective Resuscitation Status: Resuscitation Status FULL:Full Resuscitation MAR Reviewed: Yes Vital Signs & Weight: Vital Signs (12 hours) Temp Pulse Pulse Pulse Resp BP BP 01/18/18 10:24 88 80 157/74 H 140/75 01/18/18 07:52 97.6 F 84 17 01/18/18 06:42 01/18/18 06:40 91 12 01/18/18 03:55 97.8 F 90 15 BP Pulse Ox Pulse Ox Pulse Ox 01/18/18 10:24 91 L 98 01/18/18 07:52 132/75 98 01/18/18 06:42 93 L 01/18/18 06:40 01/18/18 03:55 132/70 98 Weight Weight 198 lb 8 oz I&O: 01/17/18 01/18/18 01/19/18 06:59 06:59 06:59 Intake Total 300 Output Total 500 Balance -200 Result Diagrams: 01/18/18 04:40 01/18/18 04:40 Phys Exam - Physical Examination HEENT: PERRLA Respiratory: no wheezing, no rales, no rhonchi, clear to auscultation bilateral Cardiovascular: RRR, no significant murmur, no rub Gastrointestinal: soft, non-tender, no distention, positive bowel sounds Musculoskeletal: no edema Dx/Plan (1) Acute on chronic systolic heart failure Code(s): I50.23 - ACUTE ON CHRONIC SYSTOLIC (CONGESTIVE) HEART FAILURE Status : Acute (2) CAD (coronary artery disease) Code(s): I25.10 - ATHSCL HEART DISEASE OF [place] CORONARY ARTERY W/O ANG PCTRS Status: Chronic (3) Esophageal cancer Status: Chronic Comment: s/p esophagectomy in 2015, chemotherapy Mon, Tue , Wed every other week (last CTX 03/26/2017). Pt also awaiting outpatient echo to evaluate cardiac function in Dr Joiner's office. Patient's block greaser is Dr. Holly. (4) Hypertension Code(s): I10 - ESSENTIAL (PRIMARY) HYPERTENSION Status: Chronic - Plan * Acute respiratory failure due to acute on chronic systolic heart failure- discussed with Dr. Bowman- Spironolactone was added to his regimen. Continue IV LAsix * Echo is pending * Chronic Obstructive and restrictive Lung disease- stable * Esophageal cancer- patient is concerned about recurrence, because he was taken of Herceptin in August- would like to speak with Dr. Dudley- will consult in the AM * CAD- stable - elevated troponins, likely from heart failure * Monitor electrolytes while on diuretics.
--- NOTE | 2018-01-18 14:52 | CON ---
DATE OF CONSULTATION: 01/18/2018 REASON FOR CONSULTATION: Difficulty breathing and congestive heart failure. PRIMARY PRESSURIZER: David Joiner M.D. HISTORY OF PRESENT ILLNESS: Mr. Con Cheng is a very pleasant patient of Dr. David Joiner. The patient states that he has not been breathing well for over a week. He is noticing that he had more trouble breathing at night. He previously had a pneumothorax; therefore, he was advised not to use his CPAP, but the last few nights he uses CPAP that helped him breathe better. Yesterday, he was at home watching the for [employer], started getting more and more short of breath. He ch ecked his oxygen level and that was in the low 80s, finally came to the emergency room where he was f ound to be in congestive heart failure. He received diuretics, received also inhaled bronchodilators and began to feel much better. He feels well today. He did not have chest pain or pressure. REVIEW OF SYSTEMS: Constitutional: No significant weight gain or loss. Vision: No changes. Heari ng: No changes. Pulmonary: As outlined above. Cardiac: Positive for shortness of breath. Gastro intestinal: No nausea, vomiting or diarrhea. Skin: No rashes. Neurologic: No unilateral weakness or numbness. Psychiatric: No unusual depression or anxiety. Hematologic: No unusual bruising. G enitourinary: No burning with urination. Musculoskeletal: No unusual pains. PAST MEDICAL HISTORY: 1. The patient also has history of esophageal cancer, has had surgery for that. 2. History of recurrent right pneumothorax. MEDICATIONS AT HOME: 1. Rosuvastatin. 2. Ramipril. 3. Carvedilol. 4. Furosemide 20 mg a day. 5. Aspirin 81 mg a day. PHYSICAL EXAMINATION: GENERAL: This is a pleasant 72-year-old gentleman, resting comfortably, now states he feels better. VITAL SIGNS: Blood pressure 132/75, pulse 84 and regular. EYES: Sclerae nonicteric. MOUTH: Mucous membranes are moist. NECK: Supple, no lymphadenopathy. LUNGS: Very minimal expiratory wheezing. CARDIOVASCULAR: Normal S1, normal S2. I do not hear murmur, rub or gallop. ABDOMEN: Soft, nontender, no hepatosplenomegaly. EXTREMITIES: No clubbing, no cyanosis, no edema. SKIN: Warm and dry. PERTINENT LABORATORY AND X-RAY FINDINGS: The troponin level 0.167, creatinine is 0.71, BNP 888. Mehnaz st x-ray shows pulmonary vascular congestion. D-dimer is 2.53. CT pulmonary angiogram showed no renny dence of any pulmonary emboli. Defibrillator was interrogated, by report it was normal. The paper report is not in the chart. I wiseman ve contacted with the [employer] rep, who will get that documentation to the chart. ASSESSMENT: 1. Congestive heart failure, probably systolic and diastolic mixed, improved. 2. Previous pacemaker defibrillator insertion, it looks like a biventricular device. 3. History of pneumothorax, no recurrence. 4. History of esophageal cancer. PLAN: 1. Continue diuretic therapy. 2. Echocardiogram is pending. We will continue to follow with you.
--- NOTE | 2018-01-18 15:41 | CON ---
DATE OF CONSULTATION: 01/18/2018 This consult took 70 minutes, of that time greater than 50% was spent either with the patient or on t he patient's unit. REASON FOR CONSULTATION: Pleural effusions. HISTORY OF PRESENT ILLNESS: Mr. Cheng is an extremely pleasant 72-year-old male, who came to the emergency room last night with weakness in his legs and also complaining of shortness of breath. He was thought to have pulmonary edema. He was given some Lasix. He diuresed profusely and now feels b leeanne today. He denies any fever or chills. Several months ago, he was seen in the emergency room f or right-sided pneumothorax, chest tube was accidentally placed intraparenchymally and he is going to [place] for another week in the hospital, but did not require operative therapy for that. PAST MEDICAL HISTORY: 1. Coronary artery disease. 2. Hyperlipidemia. 3. Two pneumothoraces. 4. Hypertension. 5. Esophageal cancer. PAST SURGICAL HISTORY: 1. He has had an esophagectomy with gastric pull up. 2. Right chest tube placement. 3. MediPort placement. 4. Coronary artery bypass grafting surgery. 5. Right shoulder cuff surgery. 6. Left wrist surgery. 7. Esophageal dilatations. 8. Pacemaker placement. 9. Defibrillator placement. SOCIAL HISTORY: Formerly smoked, does not currently smoke, does not use illicit drugs, and does not consume alcohol. FAMILY MEDICAL HISTORY: Remarkable for no chronic illnesses. ALLERGIES: None. MEDICATIONS: Lasix, aspirin, loratadine, and Crestor. REVIEW OF SYSTEMS: Twelve point review of systems is otherwise negative. PHYSICAL EXAMINATION: VITAL SIGNS: Temperature 97.9, pulse 93, respiratory rate 16, O2 sat 98% on 3 liters, blood pressure 140/73. GENERAL: He is awake and alert and in no distress. HEENT: Unremarkable. NECK: Without adenopathy, JVD, or bruits. LUNGS: Fairly clear. No dullness to percussion noted. CARDIAC: S1, S2 regular. ABDOMEN: Soft, nontender. EXTREMITIES: No edema. IMAGING: CT and chest x-ray were reviewed. I would say he has small bilateral pleural effusions rat her than moderate. He has some parenchymal airspace changes and some postsurgical changes, which is probably all likely due to the esophageal resection in the past. LABORATORY DATA: White blood cell count 8, hematocrit 36.8, platelet count 245. D-dimer was 2.5. S odium 139, potassium 3.6, chloride 102, CO2 of 30, BUN 20, creatinine 0.6, glucose 192. BNP is 882. Troponin is 0.131. Echocardiogram demonstrates EF 35% to 40%, mild to moderate mitral regurgitation , sclerotic aortic valve. ASSESSMENT: 1. Pulmonary edema secondary to systolic heart failure. 2. No evidence of pneumonia that I can see. RECOMMENDATIONS: 1. Continue diuretics. 2. Thoracentesis is not indicated at this time. 3. Dr. Hay will assume care tomorrow.
--- NOTE | 2018-01-18 16:30 | ADD-PRG ---
ADDENDUM Patient did have episodes of atrial fibrillation lasting up to 20 hours. Heart rate is 150. We will increase enoxaparin dose and increase carvedilol as well and may need anticoagulation.
[2018-01-18] MEDS: Carvedilol 6.25 MG TAB PO SCH (17:57)
[2018-01-18] MEDS: Enoxaparin Sodium 80 MG/0.8 ML SYRINGE SC SCH (21:27)
[2018-01-19 05:04] LABS: #Lymphocytes 1.2 thou/uL (1.20-3.40); #Monocytes 1.3 thou/uL (0.11-0.59); #Neutrophils 12.2 thou/uL (1.40-6.50); %Eosinophils 0.1 % (0.0-10.0); %Lymphocytes 8.1 % (21.0-51.0); %Monocytes 8.8 % (0.0-10.0); %Neutrophils 82.9 % (42.0-75.0); Hemoglobin 10.9 g/dL (14.0-18.0); Mean Corpuscular HGB CONC 31.6 g/dL (32.0-36.0); Mean Corpuscular Hemoglobin 28.3 pg (27.0-31.0); Mean Corpuscular Volume 89.4 fl (80.0-94.0); Mean Platelet Volume 8.4 fL (7.4-10.4); Platelet Count 252 thou/uL (130-400); Red Blood Cell (RBC) Count 3.85 mill/uL (4.70-6.10); White Blood Cell (WBC) Count 14.7 thou/uL (4.8-10.8)
[2018-01-19 05:13] LABS: Anion Gap 10 mmol/L (10-20); BUN (Urea Nitrogen) 29 mg/dL (8.4-25.7); Calc. Creatinine Clearance 125 mL/min (70-130); Calcium 9.2 mg/dL (7.8-10.44); Carbon Dioxide 31 mmol/L (23-31); Chloride 103 mmol/L (98-107); Estimated GFR-MDRD Greater than 90; Glucose 119 mg/dL (83-110); Sodium 140 mmol/L (136-145)
[2018-01-19] MEDS: Furosemide 40 MG/4 ML VIAL SLOW IVP SCH (08:38)
[2018-01-19] MEDS: Spironolactone 25 MG TAB PO SCH (09:42)
[2018-01-19] MEDS: Aspirin 81 mg Enteric Coated Tablet PO SCH (09:42)
[2018-01-19] MEDS: Carvedilol 6.25 MG TAB PO SCH ×2 (09:43→17:23)
[2018-01-19] MEDS: Enoxaparin Sodium 80 MG/0.8 ML SYRINGE SC SCH ×2 (09:45→20:25)
[2018-01-19] MEDS: Cefepime 2 GM, Syringe 2.5 ML in Sodium Chloride 0.9% 10 ML SLOW IVP SCH ×2 (09:46→19:55)
--- NOTE | 2018-01-19 09:49 | PDOC.PN ---
- Subjective Encounter Start Date: 01/19/18 Encounter Start Time: 09:46 Mr. Cheng was seen today in follow-up. of CHF exacerbation. He is breathing much better today, and is anxious to get up and go walking. He denies any chest pain. - Objective Resuscitation Status: Resuscitation Status FULL:Full Resuscitation MAR Reviewed: Yes Vital Signs & Weight: Vital Signs (12 hours) Temp Pulse Resp BP Pulse Ox 01/19/18 04:00 98.4 F 82 17 128/73 98 01/19/18 02:34 96 Weight Weight 197 lb 9.6 oz I&O: 01/18/18 01/19/18 01/20/18 06:59 06:59 06:59 Intake Total 300 1140 Output Total 500 1250 Balance -200 -110 Result Diagrams: 01/19/18 04:24 01/19/18 04:24 Phys Exam - Physical Examination HEENT: PERRLA Respiratory: no wheezing, no rales, no rhonchi, clear to auscultation bilateral Cardiovascular: RRR, no significant murmur Gastrointestinal: soft, non-tender, positive bowel sounds Musculoskeletal: no edema Dx/Plan (1) Acute on chronic systolic heart failure Code(s): I50.23 - ACUTE ON CHRONIC SYSTOLIC (CONGESTIVE) HEART FAILURE Status : Acute (2) CAD (coronary artery disease) Code(s): I25.10 - ATHSCL HEART DISEASE OF [place] CORONARY ARTERY W/O ANG PCTRS Status: Chronic (3) Esophageal cancer Status: Chronic Comment: s/p esophagectomy in 2015, chemotherapy Mon, Tue , Wed every other week (last CTX 03/26/2017). Pt also awaiting outpatient echo to evaluate cardiac function in Dr Joiner's office. Patient's emergency department clinician is Dr. Holly. (4) Hypertension Code(s): I10 - ESSENTIAL (PRIMARY) HYPERTENSION Status: Chronic - Plan * Acute on chronic systolic heart failure- he has diuresed well, and Spironolactone has been added * He was noted to have a fairly long run of AFIB - his defibrillator is being interrogated- he may require anticoagulation * COPD ( mild obstruction, and restriction on PFT's)- stable * HTN- blood pressure is stable. * Esophageal Cancer- he would like to consult with Dr. Dudley regarding this- Consult placed
--- NOTE | 2018-01-19 14:07 | PRG ---
DATE OF SERVICE: 01/19/2018 SERVICE: Pulmonary Medicine. INTERVAL HISTORY: The patient is doing great from a respiratory standpoint. He denies any current s hortness of breath or chest discomfort. He was able to sleep a little bit last night. He continues to have cough. He brings up a little bit of white sputum, but outside of this, he is nonproductive. Overall, he is very happy with the progress he has made since he has been here. His heart rate is u nder much better control. PHYSICAL EXAMINATION: VITAL SIGNS: Afebrile, pulse 85, blood pressure 124/73, respirations 18, saturation 94% on room air. GENERAL: The patient is awake, alert, no apparent distress. LUNGS: Decent air entry. There is not a prolonged expiratory phase. I do not appreciate crackles o r wheezing today. HEART: Normal rate, irregular. ABDOMEN: Soft, nontender, nondistended. Bowel sounds are positive. MUSCULOSKELETAL: No cyanosis or clubbing. There is no pitting in the bilateral lower extremities. NEUROLOGIC: Grossly nonfocal. LABORATORY DATA: WBC 14.7, hemoglobin 10.9, platelets 252,000. Basic metabolic profile is unremarka ble. Urinalysis is negative. IMAGING: Echocardiogram demonstrates 35%-40% ejection fraction. Inferior posterior akinesis. Mild to moderate mitral regurgitation is present. CTA of the chest demonstrates no evidence of a pulmonar y embolism. Findings consistent with previous abdominal/chest surgery. He has got chronic changes i n the bilateral lung samuel. This accentuated by pulmonary edema and bilateral pleural effusions. C ertainly, there is fluid in the fissure. Paraseptal emphysema is once again noted, but does not appe ar to be any worse than usual: ASSESSMENT: 1. Acute hypoxic respiratory failure, resolved. 2. Atrial fibrillation with rapid ventricular response. 3. Acute on chronic systolic and diastolic heart failure. 4. Chronic obstructive pulmonary disease with acute exacerbation, mild. PLAN: We will deescalate steroids and antibiotics over to p.o. medication. Both of these can be int errupted after total duration of 3 days. Pulmonary will continue to follow for the time being. From a purely respiratory perspective, he is stable for transition out of the hospital.
[2018-01-19] MEDS: Amoxicillin/Potassium Clav 600 mg/5 ml Oral Suspension PO SCH (20:25)
--- NOTE | 2018-01-20 07:40 | RAD ---
CHEST 1 VIEW: HISTORY: Pneumothorax. Dyspnea. Followup. COMPARISON: 01/17/18. FINDINGS: Cardiac silhouette is magnified by projection and upper limits of normal in size. Pulmonary vasculat ure is also upper limits of normal. Mediastinum is midline with postoperative changes and a multilea d left subclavian cardiac electronic device. Right-sided Port-A-Cath remains in place. Opacity at the left base has improved slightly. Right pleural fluid and patchy right basilar opacity are unchanged. IMPRESSION: Slight interval decrease left pleural fluid and improved aeration left lung base. Otherwise, stable radiographic appearance of the chest. POS: [facility]
[2018-01-20] MEDS: Carvedilol 6.25 MG TAB PO SCH ×2 (09:05→16:31)
[2018-01-20] MEDS: Spironolactone 25 MG TAB PO SCH (09:05)
[2018-01-20] MEDS: Furosemide 40 MG TAB PO SCH (09:05)
[2018-01-20] MEDS: Apixaban 5 MG TAB PO SCH ×2 (09:06→19:58)
[2018-01-20] MEDS: Aspirin 81 mg Enteric Coated Tablet PO SCH (09:06)
[2018-01-20] MEDS: Amiodarone 200 MG TAB PO SCH ×3 (09:06→19:58)
[2018-01-20] MEDS: Amoxicillin/Potassium Clav 600 mg/5 ml Oral Suspension PO SCH ×2 (09:06→19:58)
--- NOTE | 2018-01-20 12:16 | PDOC.PN ---
- Subjective Encounter Start Date: 01/20/18 Encounter Start Time: 07:40 Pt seen for followup re: acute on chronic systolic CHF. Feels better. - Objective Resuscitation Status: Resuscitation Status FULL:Full Resuscitation MAR Reviewed: Yes Vital Signs & Weight: Vital Signs (12 hours) Temp Pulse Pulse Pulse Resp BP BP 01/20/18 09:58 90 86 132/66 144/69 H 01/20/18 08:25 97.7 F 77 18 01/20/18 08:20 97.7 F 77 18 BP Pulse Ox Pulse Ox Pulse Ox 01/20/18 09:58 93 L 92 L 01/20/18 08:25 95 01/20/18 08:20 137/78 95 Weight Weight 197 lb 1.6 oz I&O: 01/19/18 01/20/18 01/21/18 06:59 06:59 06:59 Intake Total 1140 960 Output Total 1250 950 Balance -110 10 Result Diagrams: 01/19/18 04:24 01/19/18 04:24 EKG Reviewed by me: Yes (Tele: A-sensed V-paced) Phys Exam - Physical Examination Constitutional: NAD HEENT: moist MMs Neck: supple Respiratory: clear to auscultation bilateral Cardiovascular: RRR Gastrointestinal: soft Neurological: moves all 4 limbs Psychiatric: normal affect Skin: no rash Dx/Plan (1) Acute on chronic systolic heart failure Code(s): I50.23 - ACUTE ON CHRONIC SYSTOLIC (CONGESTIVE) HEART FAILURE Status : Acute Comment: Improving, continue diuretics (2) Atrial fibrillation Code(s): I48.91 - UNSPECIFIED ATRIAL FIBRILLATION Status: Chronic Comment: started on amiodarone, continue to monitor (3) CAD (coronary artery disease) Code(s): I25.10 - ATHSCL HEART DISEASE OF [place] CORONARY ARTERY W/O ANG PCTRS Status: Chronic Comment: stable (4) Dyslipidemia Code(s): E78.5 - HYPERLIPIDEMIA, UNSPECIFIED Status: Chronic Comment: continue statin (5) Hypertension Code(s): I10 - ESSENTIAL (PRIMARY) HYPERTENSION Status: Chronic Comment: Monitor vital signs, titrate antihypertensives as needed. - Plan * . Review of Systems - Review of Systems Respiratory: negative: Cough, Shortness of Breath, Hemoptysis, SOB with Excertion, Pleuritic Pain, Wheezing Cardiovascular: negative: chest pain, palpitations, orthopnea, paroxysmal nocturnal dyspnea, edema, light headedness - Medications/Allergies Allergies/Adverse Reactions: Allergies Allergy/AdvReac Type Severity Reaction Status Date / Time No Known Allergies Allergy Verified 01/17/18 22:57 Medications: Current Medications Acetaminophen (Tylenol) 650 mg PO Q4H PRN PRN Reason: Headache/Fever or Pain Acetaminophen (Tylenol) 650 mg NE Q4H PRN PRN Reason: Headache/Fever or Pain Amiodarone HCl (Cordarone) 400 mg PO TID [facility] Last Admin: 01/20/18 09:06 Dose: 400 mg Amoxicillin/Clavulanate Potassium (Augmentin 600mg/5ml Oral Susp) 600 mg PO BID [facility] Last Admin: 01/20/18 09:06 Dose: 600 mg Apixaban (Eliquis) 5 mg PO BID [facility] Last Admin: 01/20/18 09:06 Dose: 5 mg Aspirin (Ecotrin) 81 mg PO DAILY [facility] Last Admin: 01/20/18 09:06 Dose: 81 mg Bisacodyl (Dulcolax) 10 mg PO DAILYPRN PRN PRN Reason: Constipation Carvedilol (Coreg) 6.25 mg PO BID-[facility] Last Admin: 01/20/18 09:05 Dose: 6.25 mg Furosemide (Lasix) 40 mg PO DAILY-[facility] Last Admin: 01/20/18 09:05 Dose: 40 mg Sodium Chloride (Flush - Normal Saline) 10 ml IVF Q12HR [facility] Last Admin: 01/20/18 09:07 Dose: 10 ml Sodium Chloride (Flush - Normal Saline) 10 ml IVF PRN PRN PRN Reason: Saline Flush Spironolactone (Aldactone) 25 mg PO QAM-[facility] Last Admin: 01/20/18 09:05 Dose: 25 mg
--- NOTE | 2018-01-20 15:00 | PRG ---
DATE OF SERVICE: 01/20/2018 SERVICE: Pulmonary Medicine. INTERVAL HISTORY: The patient is doing fine from a respiratory standpoint. He is breathing comforta delroy. He denies any chest discomfort, nausea or vomiting. Otherwise, there has been no interval evans ge to his condition. He is a little bit upset about having to be in the hospital for a couple of day s to get his atrial fibrillation under wraps. PHYSICAL EXAMINATION: VITAL SIGNS: Afebrile, pulse 86, blood pressure 142/79, respirations 18, saturation 94% on room air. GENERAL: The patient is awake, alert, in no apparent distress. LUNGS: Decent air entry with no prolonged expiratory phase, wheezing, rhonchi or crackles. HEART: Normal rate and regular. ABDOMEN: Soft, nontender, nondistended. Bowel sounds are positive. MUSCULOSKELETAL: No cyanosis or clubbing. No pitting in the bilateral lower extremities. NEUROLOGIC: Grossly nonfocal. LABORATORY DATA: WBC 14.7, hemoglobin 10.9, and platelets 252,000. Basic metabolic profile is essen tially unremarkable. BUN 29. IMAGING: Chest x-ray demonstrates opacity at the left base has improved slightly. There is a right- sided pleural effusion. This is unchanged and longstanding. Right-sided Xyzl-A-Pmewsbcf terminates in good position. Multiple pacemaker leads are in place. ASSESSMENT: 1. Acute hypoxic respiratory failure, resolved. 2. Atrial fibrillation with rapid ventricular response, returned to sinus rhythm based on his regula r rate. 3. Acute on chronic systolic and diastolic heart failure. 4. Chronic obstructive pulmonary disease with minimal exacerbation. PLAN: Supportive care including antibiotics and nebulized medications and steroids will be continued . That will be discontinued after 2 more days. Pulmonary will continue to follow along while the pa sherice remains in this location.
[2018-01-21 06:13] LABS: Anion Gap 10 mmol/L (10-20); BUN (Urea Nitrogen) 19 mg/dL (8.4-25.7); Calc. Creatinine Clearance 133 mL/min (70-130); Calcium 9.1 mg/dL (7.8-10.44); Carbon Dioxide 31 mmol/L (23-31); Chloride 100 mmol/L (98-107); Estimated GFR-MDRD Greater than 90; Glucose 99 mg/dL (83-110); Potassium 4.1 mmol/L (3.5-5.1); Sodium 137 mmol/L (136-145)
[2018-01-21] MEDS: Furosemide 40 MG TAB PO SCH (08:33)
[2018-01-21] MEDS: Spironolactone 25 MG TAB PO SCH (08:34)
[2018-01-21] MEDS: Apixaban 5 MG TAB PO SCH ×2 (08:34→20:44)
[2018-01-21] MEDS: Carvedilol 6.25 MG TAB PO SCH ×2 (08:34→16:22)
[2018-01-21] MEDS: Amoxicillin/Potassium Clav 600 mg/5 ml Oral Suspension PO SCH ×2 (08:35→20:45)
[2018-01-21] MEDS: Aspirin 81 mg Enteric Coated Tablet PO SCH (08:35)
[2018-01-21] MEDS: Amiodarone 200 MG TAB PO SCH ×3 (08:36→20:44)
--- NOTE | 2018-01-21 14:19 | PDOC.PN ---
- Subjective Encounter Start Date: 01/21/18 Encounter Start Time: 08:00 Pt seen for followup re: CHF exacerbation. Feels better. No cough, chest pain , fevers or chills. - Objective Resuscitation Status: Resuscitation Status FULL:Full Resuscitation MAR Reviewed: Yes Vital Signs & Weight: Vital Signs (12 hours) Temp Pulse Resp BP BP Pulse Ox 01/21/18 12:28 97.5 F L 83 18 119/65 95 01/21/18 08:34 135/87 01/21/18 08:33 135/87 01/21/18 08:31 97.0 F L 82 18 135/87 94 L 01/21/18 07:43 97.8 F 78 18 94 L 01/21/18 04:00 97.8 F 78 18 115/76 94 L Weight Weight 194 lb 11.2 oz I&O: 01/20/18 01/21/18 01/22/18 06:59 06:59 06:59 Intake Total 960 1080 Output Total 950 1825 Balance 10 -745 Result Diagrams: 01/19/18 04:24 01/21/18 04:48 EKG Reviewed by me: Yes (Tele: AV-paced) Phys Exam - Physical Examination Constitutional: NAD HEENT: moist MMs Neck: supple Respiratory: clear to auscultation bilateral Cardiovascular: RRR Gastrointestinal: soft Musculoskeletal: edema present Neurological: moves all 4 limbs Psychiatric: normal affect Dx/Plan (1) Acute on chronic systolic heart failure Code(s): I50.23 - ACUTE ON CHRONIC SYSTOLIC (CONGESTIVE) HEART FAILURE Status : Acute Comment: Improving (2) Atrial fibrillation Code(s): I48.91 - UNSPECIFIED ATRIAL FIBRILLATION Status: Chronic Comment: started on amiodarone and apixaban (3) CAD (coronary artery disease) Code(s): I25.10 - ATHSCL HEART DISEASE OF [place] CORONARY ARTERY W/O ANG PCTRS Status: Chronic Comment: stable (4) Dyslipidemia Code(s): E78.5 - HYPERLIPIDEMIA, UNSPECIFIED Status: Chronic Comment: on statin (5) Hypertension Code(s): I10 - ESSENTIAL (PRIMARY) HYPERTENSION Status: Chronic Comment: titrate antihypertensives as needed. - Plan * . Likely home tomorrow. Review of Systems - Review of Systems Respiratory: negative: Cough, Shortness of Breath, Hemoptysis, SOB with Excertion, Pleuritic Pain, Wheezing Cardiovascular: negative: chest pain, palpitations, orthopnea, paroxysmal nocturnal dyspnea, edema, light headedness - Medications/Allergies Allergies/Adverse Reactions: Allergies Allergy/AdvReac Type Severity Reaction Status Date / Time No Known Allergies Allergy Verified 01/17/18 22:57 Medications: Current Medications Acetaminophen (Tylenol) 650 mg PO Q4H PRN PRN Reason: Headache/Fever or Pain Acetaminophen (Tylenol) 650 mg [place] Q4H PRN PRN Reason: Headache/Fever or Pain Albuterol/Ipratropium (Duoneb) 3 ml NEB [id number] PRN PRN Reason: SOB &/or Wheezing Amiodarone HCl (Cordarone) 400 mg PO TID [facility] Last Admin: 01/21/18 08:36 Dose: 400 mg Amoxicillin/Clavulanate Potassium (Augmentin 600mg/5ml Oral Susp) 600 mg PO BID [facility] Last Admin: 01/21/18 08:35 Dose: 600 mg Apixaban (Eliquis) 5 mg PO BID [facility] Last Admin: 01/21/18 08:34 Dose: 5 mg Aspirin (Ecotrin) 81 mg PO DAILY [facility] Last Admin: 01/21/18 08:35 Dose: 81 mg Bisacodyl (Dulcolax) 10 mg PO DAILYPRN PRN PRN Reason: Constipation Carvedilol (Coreg) 6.25 mg PO BID-[facility] Last Admin: 01/21/18 08:34 Dose: 6.25 mg Furosemide (Lasix) 40 mg PO DAILY-[facility] Last Admin: 01/21/18 08:33 Dose: 40 mg Ramipril (Altace) 2.5 mg PO DAILY [facility] Last Admin: 01/21/18 08:33 Dose: 2.5 mg Sodium Chloride (Flush - Normal Saline) 10 ml IVF Q12HR [facility] Last Admin: 01/21/18 08:37 Dose: 10 ml Sodium Chloride (Flush - Normal Saline) 10 ml IVF PRN PRN PRN Reason: Saline Flush Spironolactone (Aldactone) 25 mg PO QAM-[facility] Last Admin: 01/21/18 08:34 Dose: 25 mg
--- NOTE | 2018-01-21 15:17 | PRG ---
DATE OF SERVICE: 01/21/2018 SERVICE: Pulmonary Medicine. INTERVAL HISTORY: The patient is doing outstanding from a breathing standpoint. He denies any chest pain, nausea, vomiting, fevers or chills. He has no complaints today. He is looking forward to [facility] home, possibly as early as tomorrow. OBJECTIVE: VITAL SIGNS: Afebrile, pulse 83, blood pressure 119/65, respirations 18, saturation 95% on room air. GENERAL: The patient is awake, alert, in no apparent distress. LUNGS: Decent air entry bilaterally with no prolonged expiratory phase or wheezing. HEART: Normal rate, regular. ABDOMEN: Soft, nontender, nondistended. Bowel sounds are positive. MUSCULOSKELETAL: No cyanosis or clubbing. No pitting in the bilateral lower extremities. NEUROLOGIC: Grossly nonfocal. LABORATORY DATA: Basic metabolic profile is essentially unremarkable. ASSESSMENT: 1. Acute hypoxic respiratory failure, resolved. 2. Atrial fibrillation with rapid ventricular response, returned to sinus rhythm. 3. Acute on chronic systolic and diastolic heart failure, resolved to baseline. 4. Chronic obstructive pulmonary disease with minimal exacerbation, resolved. PLAN: The patient is stable for transition home from my purely respiratory perspective. Pulmonary w ill continue to follow while he remains in the hospital. He remains in sinus rhythm for the better p art of 24 hours.
[2018-01-22 05:04] LABS: #Eosinphils 0.5 thou/uL (0.0-0.7); #Lymphocytes 1.1 thou/uL (1.20-3.40); #Monocytes 0.8 thou/uL (0.11-0.59); #Neutrophils 6.3 thou/uL (1.40-6.50); %Basophils 0.1 % (0.0-1.0); %Eosinophils 6.2 % (0.0-10.0); %Lymphocytes 12.2 % (21.0-51.0); %Neutrophils 72.5 % (42.0-75.0); Hemoglobin 12.7 g/dL (14.0-18.0); Mean Corpuscular HGB CONC 31.6 g/dL (32.0-36.0); Mean Corpuscular Hemoglobin 28.1 pg (27.0-31.0); Mean Platelet Volume 8.1 fL (7.4-10.4); Platelet Count 268 thou/uL (130-400); RBC Distribution Width 15.6 % (11.5-14.5); Red Blood Cell (RBC) Count 4.51 mill/uL (4.70-6.10); White Blood Cell (WBC) Count 8.8 thou/uL (4.8-10.8)
--- NOTE | 2018-01-22 08:39 | CON ---
DATE OF CONSULTATION: 01/21/2018 ELECTROPHYSIOLOGY CONSULTATION REPORT REFERRING PHYSICIAN: Dr. Joiner. I am seeing Mr. Cheng at our [facility] telemetry floor as an electrophysiology consultan t for 1. Newly found atrial fibrillation. A. ICU telemetry reveals frequent recurrence of atrial fibrillation in the setting of worsening flui d overload. 2. Acute on chronic systolic congestive heart failure with ischemic cardiomyopathy. A. Prior history of coronary artery bypass grafting surgery. B. History of LV ejection fraction reduced at 45%-50%, then to 30%-35% most recently. 3. Left bundle branch block pattern. 4. Valvular heart disease. A. 2D echo on 09/02/2017 shows moderate MR, mild TR, and aortic valve sclerosis. 5. History of esophageal cancer, status post esophagectomy in 06/2017, complicated with recurrent pn eumothoraces on the right side, requiring chest tube placements. 6. Coronary artery risk factors. A. Hypertension. B. Hyperlipidemia. C. History of smoking. ALLERGIES: None. MEDICATIONS AT HOME: Included Coreg, ramipril, furosemide, Crestor, aspirin, and loratadine. SUBJECTIVE: Mr. Cheng was admitted on the with progressive dyspnea. It seems that he has be en gradually getting more short of breath over the course of last week. He has had some trouble margarita thing at night and even used his CPAP machine. He found his oxygen level too low, eventually came to the ER, and he was found to be in fluid overload and heart failure exacerbation. He was diuresed an d he is feeling better now. ICD was interrogated, but he was noted to have frequent recurrence of th e atrial fibrillation episodes. He was started on Eliquis and also on amiodarone. His rhythm mainta ined sinus. He is feeling better today. He does not pass out. No fever, chills, or cough. No stro ke-like symptoms. The ICD I placed in September seems to have healed well. There is no dizziness or u nconsciousness. REVIEW OF SYSTEMS: Rest of 12-point system is otherwise unremarkable. PAST MEDICAL HISTORY: As above. SOCIAL HISTORY: The patient denied smoking, ETOH, or drug use. FAMILY HISTORY: Noncontributory. OBJECTIVE: VITAL SIGNS: Blood pressure is 119/65, heart rate 83, respirations 18, temperature 97.5 degrees Fahr enheit. GENERAL: Alert and oriented man in no apparent distress. NECK: Supple. Jugular veins are not distended. CHEST: Coarse without crackles. CARDIOVASCULAR: Heart sounds are regular to rate and rhythm. No murmur or gallop. ABDOMEN: Benign. Bowel sounds are positive. Left precordial ICD insertion site is well healed. ABDOMEN: Benign. EXTREMITIES: Lower extremities without edema, clubbing, or cyanosis. Pulses are adequate. NEUROLOGIC: The patient is nonfocal. MUSCULOSKELETAL: Without joint swelling or deformities. SKIN: Without rash. DATABASE: ICD interrogation was reviewed revealing adequate functioning of biventricular ICD Medtron ic Viva Quad device. There is increasing frequency of atrial fibrillation episodes seen for the last 4 weeks. Ventricular rates are reasonably controlled. EKG was reviewed, reveals sinus rhythm with ventricular pacing. OptiVol measurements on the device does reveal worsening fluid overload for the last month. LABORATORY DATA: White count initially 7.6, hemoglobin 12.1, platelet count is 272. Most recent whi te cell count is 14.7. The sodium initially was 139, potassium 3.6, BUN 20, creatinine 0.68. The BN P was 882. Troponin levels are 0.167 and 0.131. The chest x-ray shows on presentation mild bibasila r pleural and parenchymal lung changes, may represent pleural effusions, no evident pneumothorax. ASSESSMENT: Mr. Cheng is a very pleasant 72-year-old man with history of esophageal cancer requir ing resection and also worsening heart failure, cardiomyopathy, who underwent biventricular ICD impla ntation in September. The ICD is adequately functioning and lead placement still adequate as reviewed on the x-ray. Now though, he has worsening fluid overload and also has noted to have atrial fibrilla tion episodes documented. He was already initiated on amiodarone and Eliquis. Currently, he appears to be stable after diuresis. He maintains sinus rhythm. PLAN: I agree with the initiated therapy. Clearly, this gentleman's atrial fibrillation episode cou ld worsen his biventricular pacing and would warrant suppression. The AFib episodes also could be po ssibly initiated by the worsening fluid overload as well. This might represent the catch-22 for him and it is highly beneficial for him to drop this vicious cycle. I agree with amiodarone therapy and diuretics. I have planned to turn on atrial ATP therapies to treat for potential upcoming atrial flu tters. Gradual tapering of his amiodarone therapy could be considered in the future to 200 mg a day and then even lower as low as tolerated. Long-term and also clinical stabilization, left atrial abla tion procedure is a possibility, although at this point, he is somewhat high risk, hence the history of comorbidities. We will follow him as an outpatient. We would like to make arrangements in about 3 months to follow up in our office or earlier as symptoms dictate. Discussed these issues with the patient and his . Thank you again for letting me participate in the care of this patient.
[2018-01-22] MEDS: Amiodarone 200 MG TAB PO SCH (08:53)
[2018-01-22] MEDS: Furosemide 40 MG TAB PO SCH (08:54)
[2018-01-22] MEDS: Aspirin 81 mg Enteric Coated Tablet PO SCH (08:54)
[2018-01-22] MEDS: Carvedilol 6.25 MG TAB PO SCH (08:54)
[2018-01-22] MEDS: Spironolactone 25 MG TAB PO SCH (08:54)
[2018-01-22] MEDS: Apixaban 5 MG TAB PO SCH (08:54)
[2018-01-22 09:02] VITALS: BP 124/79
[2018-01-22] MEDS: Amoxicillin/Potassium Clav 600 mg/5 ml Oral Suspension PO SCH (09:02)
--- NOTE | 2018-01-22 10:06 | PRG ---
DATE OF SERVICE: 01/22/2018 ELECTROPHYSIOLOGY NOTE SUBJECTIVE: Mr. Cheng seems to be doing much better. He is diuresed. His breathing is easier. He remains in sinus rhythm. OBJECTIVE: VITAL SIGNS: Blood pressure is 124/79, heart rate 84, respiration is 18, temperature 97.7 degrees Fahrenheit. GENERAL: He is an alert and oriented man, in no apparent distress. NECK: Supple. Jugular veins not distended. CHEST: Coarse without crackles. CARDIOVASCULAR: Heart sounds are regular to rate and rhythm. Left precordial ICD insertion site is well healed. ABDOMEN: Benign. Bowel sounds positive. EXTREMITIES: Lower extremities without edema, clubbing or cyanosis. DATABASE: Telemetry strips reveal sinus rhythm with ventricular pacing. The ins and outs reveals negative balance for the last 2 days and the weight is down to 10 pounds since the . LABORATORY DATA: Mild anemia with hemoglobin 12.7, otherwise normal CBC and no new electrolytes. ASSESSMENT AND PLAN: Mr. Cheng is a pleasant 72-year-old man with history of ischemic cardiomyopathy who has underwent a biventricular ICD implantation by me in 09/2017. His ICD seems to have healed well, but he started developing progressive fluid overload and increasing episodes of atrial fibrillation. Now , he is being diuresed and he is placed on amiodarone. He is maintaining sinus rhythm. The patient seems to be stabilizing on the current regimen and it is reasonable to continue amiodarone, albeit we discussed the potential long-term risk as well. Possibly after stabilization, amiodarone could be further tapered. He received tapering instructions from Dr. Joiner. Eventually, we could possibly consider elimination of amiodarone long-term as well for now, though he remains somewhat of a poor candidate for ablation procedures. We will follow up further in the office. Thank you again for letting me to participate in the care of this patient. FRANCES
[2018-01-22 10:46] VITALS: TEMP 96.4
--- NOTE | 2018-01-22 12:47 | DIS ---
PRIMARY CARE PROVIDER: Megha Dhillon MD DATE OF ADMISSION: 01/17/2018 DATE OF DISCHARGE: 01/22/2018 DISCHARGE DIAGNOSES: Acute hypoxic respiratory failure. DISCHARGE DIAGNOSES: 1. Acute on chronic systolic congestive heart failure. 2. Atrial fibrillation with rapid ventricular response. 3. Chronic obstructive pulmonary disease with minimal exacerbation. CONDITION OF PATIENT ON THE DAY OF DISCHARGE: Stable. I assessed Mr. Cheng on the day of dischar . He denies any chest pain or shortness of breath. He feels better. Vital signs are stable. S1 and S2 are heard, regular. Lungs are clear to auscultation bilaterally. DISCHARGE MEDICATIONS: 1. Amiodarone 200 mg tablets, 2 tablets 2 times a day for 2 weeks, then 1 tablet 2 times a day for 2 weeks. 2. Eliquis 5 mg 2 times a day. 3. Furosemide 40 mg daily, increased from 20 mg daily. 4. Coreg 6.25 mg 2 times a day, increased from 3.125 mg 3 times a day. 5. Amoxicillin/potassium clavulanate 600 mg 1 more dose. 6. Aspirin 81 mg daily. 7. Claritin 10 mg at bedtime. 8. Ramipril 2.5 mg daily. 9. Rosuvastatin 20 mg at bedtime. 10. Benadryl 25-50 mg as needed. 11. Ipratropium/albuterol inhalations 2 times a day as needed. 12. Spironolactone 25 mg daily. CONSULTATIONS DURING THIS HOSPITALIZATION: 1. Cardiology, Dr. Bowman, patient was also seen by Dr. Joiner. 2. Pulmonology, Dr. Fink, patient was also seen by Dr. Hay. 3. Electrophysiology, Dr. Patel. HOSPITAL COURSE: Mr. Cheng is a pleasant 72-year-old gentleman, who was admitted to [facility] on 01/21/2018 for acute hypoxic respiratory failure. His ICD was interrogated a nd he was noted to have frequent recurrence of atrial fibrillation. A 2D echocardiogram during this hospitalization showed moderately increased left ventricular size, ejection fraction estimated at 35% to 40%, normal right ventricular size and function, mild to moderate mitral regurgitation. He was s een by Cardiology Service and Pulmonology Service. He was started on bronchodilator treatments, anti biotics, and diuretics. He improved clinically. He was started on amiodarone and Eliquis. His beta jimmy dose was also increased, as well as his home diuretic dose. He also had CT angiogram of the chest at the time of admission. Please refer to history and physical note from 01/17/2018 for the abnormalities noted on the CT angiogram. Many thanks for allowing me to participate in your patient's care. Please feel free to contact me wi th any questions or concerns. DISCHARGE DESTINATION: Home. TOTAL AMOUNT OF TIME SPENT COORDINATING THIS DISCHARGE: 32 minutes. On 01/22/2018, he had a white count of 8800, hemoglobin 12.7, platelet count 268,000. His BNP during this admission was 888. Creatinine was 0.62 on 01/21/2018, and his electrolytes were normal on the day.
== END 2018-01-22 11:00 | disposition home or self-care (01) | DRG 291 ==
LOC: ERS 18:45 → 2NO 21:43
PROVIDERS: ADMIT Internal Medicine; ATTEND Internal Medicine
DX: I11.0 Hypertensive heart disease with heart failure (principal); J96.01 Acute respiratory failure with hypoxia; J44.1 Chronic obstructive pulmonary disease with (acute) exacerbation; I25.5 Ischemic cardiomyopathy; I25.10 Atherosclerotic heart disease of native coronary artery without angina pectoris; I50.43 Acute on chronic combined systolic (congestive) and diastolic (congestive) heart failure; E78.5 Hyperlipidemia, unspecified; I48.91 Unspecified atrial fibrillation; Z85.01 Personal history of malignant neoplasm of esophagus; Z87.891 Personal history of nicotine dependence; Z79.82 Long term (current) use of aspirin; Z79.899 Other long term (current) drug therapy; Z95.1 Presence of aortocoronary bypass graft; Z95.810 Presence of automatic (implantable) cardiac defibrillator; Z90.49 Acquired absence of other specified parts of digestive tract
CPT/HCPCS: 36415; 71045; 71275; 80048; 80053; 81003; 82553; 83735; 83880; 84484; 85025; 85379; 86850; 86900; 86901; 93005; 93306; 93798; 94640; 94760; 96365; 96372; 96375; 96376; A4216; J0692; J1650; J1940; J2930; J3370; J7620

== ENCOUNTER 2018-02-05 08:26 | Outpatient (CLI) | payer MEDICARE ==
--- NOTE | 2018-02-05 11:10 | PET ---
RADIONUCLIDE PET SCAN WITH CT ATTENUATION CORRECTION: Date: 02/05/18 HISTORY: Esophageal cancer with metastatic disease. Restaging. COMPARISON: 09/02/17 PET. 01/17/18 CT arteriogram chest. FINDINGS: There is physiologic uptake of radiotracer throughout the enteric system and along each urinary tract . Uptake at the right posterior paraspinal/paraesophageal recess where hypermetabolic activity was de monstrated on the previous study, maximum SUV is 1.9 (previously 2.6). Uptake along the parenchymal s carring at the right major fissure shows maximum SUV of 2.2 (previously 2.2). At the right posterolateral costophrenic angle, small focus of consolidation and pleural thickening s hows maximum SUV of 1.7 (previously 2.4). Parenchymal scarring at the posterior aspect of the right upper lobe is again demonstrated. Within th e periphery of the posterior segment right upper lobe, a patchy infiltrate on the CT images shows inc reased uptake of radiotracer with a maximum SUV of 2.2. No abnormal uptake was present at this locati on on the previous study. No other new areas of abnormal uptake are apparent. Nondiagnostic CT attenuation correction images again show a 0.3 cm calculus within the nondilated zaira ix of the right kidney. Fusiform ectasia of the lower abdominal aorta and arterial calcification are again demonstrated. Degenerative changes lumbar spine. Postoperative changes mediastinum. IMPRESSION: 1. New area of borderline hypermetabolic activity associated with the posterior segment right upper lobe in region of patchy infiltrate on CT images. The infiltrate is slightly less pronounced than on the CTA exam from 01/17/18 and is favored to be related to resolving inflammation rather than new met astatic disease. 2. Interval decrease in activity associated with the right upper paraspinal abnormality. Stable upta ke associated with right major fissure and right posterolateral costophrenic angle. 3. Newfound small nonobstructing right renal calculus. POS: [facility]
== END 2018-02-05 08:27 | disposition home or self-care (01) ==
LOC: PET 08:26
PROVIDERS: ATTEND Internal Medicine Hematology & Oncology
DX: C15.9 Malignant neoplasm of esophagus, unspecified (principal); C78.00 Secondary malignant neoplasm of unspecified lung; N20.0 Calculus of kidney
CPT/HCPCS: 78815; A9552

== ENCOUNTER 2018-04-28 09:53 | Outpatient (CLI) | payer MEDICARE | END 2018-04-28 09:54 | disposition home or self-care (01) | LOC: BICRAD 09:53 | PROVIDERS: ATTEND Internal Medicine Cardiovascular Disease | DX: I25.5 Ischemic cardiomyopathy (principal); Z95.0 Presence of cardiac pacemaker | CPT/HCPCS: 36415; 71046; 80053; 80061; 84439; 84443 ==

== ENCOUNTER 2018-09-11 08:26 | Outpatient (CLI) | payer MEDICARE ==
--- NOTE | 2018-09-11 10:47 | CT ---
CT ABDOMEN WITH CONTRAST CT PELVIS WITH CONTRAST: HISTORY: Distal esophageal cancer. COMPARISON: None. CORRELATION: Chest CT 01/17/2018. FINDINGS: ABDOMEN CT: Atelectatic changes in the right lower lobe. Small bilateral pleural effusions. Heart is enlarged. No significant pericardial fluid. Note is made of a gastric pull-through. Liver, spleen, and adrenal glands have appropriate enhancement. There is atrophy of the pancreas. Symmetric enhancement of the kidneys. Bilaterally, no obstructive uropathy. Nonobstructing calculus in the lower pole of the right kidney measuring approximately 2 mm. No evidence of obstructive uropathy. No gastrohepatic, retrocrural, or periportal lymphadenopathy. No mesenteric mass, lymphadenopathy, free air, or free fluid. Visualized alimentary canal is unremarkable. No evidence of bowel obstruction. Scattered diverticul a. No evidence of diverticulitis. Incidental gallstone is noted in the lumen of the gallbladder. There is an incidental lipoma involvi ng the 4th portion of the duodenum measuring [address] PELVIS: No mass, lymphadenopathy, free air, or free fluid. Unremarkable urinary bladder. No lytic or blasti c lesions within the osseous structures. IMPRESSION: 1. Findings compatible with gastric pull-through. 2. Bilateral pleural effusions with adjacent parenchymal changes likely due to atelectasis. 3. No evidence of lymphadenopathy. 4. Incidental gallstone and nonobstructing calculus in the lower pole of the right kidney. POS: [facility]
== END 2018-09-11 08:27 | disposition home or self-care (01) ==
LOC: BICCT 08:26
PROVIDERS: ATTEND Internal Medicine Hematology & Oncology
DX: C15.5 Malignant neoplasm of lower third of esophagus (principal); N20.0 Calculus of kidney; J90 Pleural effusion, not elsewhere classified
CPT/HCPCS: 74177

== ENCOUNTER 2018-12-09 10:54 | Day surgery (SDC) | payer MEDICARE ==
[2018-12-08 12:51] VITALS: BMI 26.9
[2018-12-09] MEDS ORDERED: Lidocaine 1% PF 5 ML VIAL ONE (13:32)
[2018-12-09] MEDS ORDERED: PROPOFOL 200 MG/20 ML VIAL ONE (13:32)
--- NOTE | 2018-12-09 14:08 | OP ---
DATE OF PROCEDURE: 12/09/2018 PREOPERATIVE DIAGNOSES: Dysphagia and a history of esophageal stricture with a history of esophageal malignancy. DESCRIPTION OF PROCEDURE: After informed consent was obtained, the patient was placed in left lateral decubitus position. Anesthesia was administered per the Anesthesia Department. Forward-viewing endoscope was inserted into the esophagus under direct visualization with ease and passed to approximately 30 cm, where a circumferential stricture was noted. This did not allow passage of the diagnostic scope. A 15-mm balloon was put across the area, inflated for 1 minute, deflated and removed. The scope was then passed correction through the stricture, and the dilation was repeated. Some mild post dilatation bleeding was noted. In the gastric remnant, there was some small amount of retained food. The duodenum was normal. There were few erosions in the area of the GE junction. ASSESSMENT: 1. Severe stricturing of the gastroesophageal anastomosis - status post balloon dilatation. 2. Erosions at the distal esophagus consistent with ongoing gastroesophageal reflux. 3. Small amount of retained food in the gastric remnant. RECOMMENDATIONS: 1. Continue a trial of Zegerid powder for solution b.i.d. 2. Follow up with Dr. Holly in 2 weeks. Job ID: [id number]
== END 2018-12-09 14:05 | disposition home or self-care (01) ==
LOC: SDC 10:54
PROVIDERS: ATTEND Internal Medicine Gastroenterology
PROC: 0D758ZZ Dilation of Esophagus, Via Natural or Artificial Opening Endoscopic (ICD-10-PCS; principal; 2018-12-09)
DX: K22.2 Esophageal obstruction (principal); K22.10 Ulcer of esophagus without bleeding; J44.9 Chronic obstructive pulmonary disease, unspecified; I25.10 Atherosclerotic heart disease of native coronary artery without angina pectoris; E78.00 Pure hypercholesterolemia, unspecified; I10 Essential (primary) hypertension; G47.30 Sleep apnea, unspecified; Z79.01 Long term (current) use of anticoagulants; Z79.899 Other long term (current) drug therapy; Z87.891 Personal history of nicotine dependence; Z95.1 Presence of aortocoronary bypass graft; Z90.49 Acquired absence of other specified parts of digestive tract
CPT/HCPCS: J2001; J2704

== ENCOUNTER 2019-01-04 10:58 | Day surgery (SDC) | payer MEDICARE ==
[2019-01-01 11:02] VITALS: BMI 26.3
[2019-01-04] MEDS ORDERED: Triamcinolone 40 MG/ML VIAL IM SCH (12:15)
[2019-01-04] MEDS ORDERED: PROPOFOL 200 MG/20 ML VIAL ONE (15:07)
--- NOTE | 2019-01-04 19:53 | OP ---
DATE OF PROCEDURE: 01/04/2019 PROCEDURE PERFORMED: Esophagogastroduodenoscopy with dilatation. PREPROCEDURE DIAGNOSES: History of esophageal cancer, previous radiation and chemotherapy treatment followed by surgical resection, gastric polyp, complications, postoperative severe stricture at the anastomosis. He has had previous dilatations in [place] and previous injections with corticosteroids and previous removal of stent placed for about 3 weeks, but continues to have issues with needing to be dilated about every 4 weeks prior to the last stent placement last June. He actually looked like he was maybe going every 3 months or so. He is most recently dilated by my partner, Dr. German Chapman to 14 mm. POSTPROCEDURE DIAGNOSES: 1. Stricture about 25 cm in esophageal orifice tight probably 4 to 8 mm in size. 2. Suture material noted in the area. 3. Diverticulum noted in the area. No evidence of overt perforation. 4. Dilated with a 15 mm TTS balloon with good effect. The stricture was unable to be passed. 5. Attempts to inject the stricture with triamcinolone 10 mg in each of 4 quadrants for a total of 40 mg was unsuccessful as the stricture was so hard, we could not inject into it. We did inject a little bit proximally. RECOMMENDATIONS: 1. Consider consultation with Dr. Huan Mccain. He has other options of a strictureplasty or another stent placement. 2. We will schedule for repeat EGD here in a month in case if available. 3. I will recommend he stay on his PPI b.i.d., not eat anything within 5 hours of lying down the evening and to get the Carafate that Dr. Chapman had recommended last dilatation with anesthesia team. PROCEDURE IN DETAIL: The patient was informed risks, benefits, and possible complications of endoscopy including perforation, reaction for medication, and aspiration. Informed consent was obtained. The patient was brought to the endoscopy suite, where he was sedated in gradual fashion. Once he was comfortable, a bite block was placed inside his orifice. The endoscope was advanced through the esophagus to about 25 cm where strictures were noted, but we could not pass. This was dilated with 15 mm TTS balloon as noted above, then we were able to pass the lesion. There was nothing that appeared overly malignant, although biopsies were not taken. The stomach was found to be normal. The duodenum was normal. Retroflexed views confirmed the same. Then, we attempted to inject triamcinolone in 1 mL aliquot into the stricture, but the stricture was so hard that would not. We could put the needle in, but we could not inject. We did end up injecting a little bit proximally and distally to the stricture, but neither the stricture itself. The scope was removed and the patient tolerated the procedure well. There were no complications. Job ID: [id number]
== END 2019-01-04 14:10 | disposition home or self-care (01) ==
LOC: SDC 10:58
PROVIDERS: ATTEND Internal Medicine Gastroenterology
PROC: 0D758ZZ Dilation of Esophagus, Via Natural or Artificial Opening Endoscopic (ICD-10-PCS; principal; 2019-01-04)
DX: K22.2 Esophageal obstruction (principal); Q39.6 Congenital diverticulum of esophagus; I25.10 Atherosclerotic heart disease of native coronary artery without angina pectoris; I10 Essential (primary) hypertension; E11.9 Type 2 diabetes mellitus without complications; E78.00 Pure hypercholesterolemia, unspecified; J44.9 Chronic obstructive pulmonary disease, unspecified; G47.30 Sleep apnea, unspecified; Z95.1 Presence of aortocoronary bypass graft; Z85.01 Personal history of malignant neoplasm of esophagus; Z87.891 Personal history of nicotine dependence; Z79.82 Long term (current) use of aspirin; Z79.01 Long term (current) use of anticoagulants; Z79.899 Other long term (current) drug therapy; Z98.890 Other specified postprocedural states
CPT/HCPCS: J3301

== ENCOUNTER 2019-04-26 09:07 | Outpatient (CLI) | payer MEDICARE ==
--- NOTE | 2019-04-26 09:57 | CT ---
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 Oral contrast was administered. Coronal reformats were performed. FINDINGS: Lower Chest: Bibasilar atelectasis. Small left pleural effusion. Abdomen: Liver: within normal limits. Bile Ducts: Normal caliber. Gallbladder: A small dependent hyperdensity may represent a gallstone. Pancreas: within normal limits. Spleen: within normal limits. Adrenals: within normal limits. Kidneys: within normal limits. The previously seen right renal calcification is no longer present. Pelvis: Reproductive Organs: No pelvic masses. Ureters: within normal limits. Bladder: within normal limits. Peritoneum: No ascites or free air, no fluid collection. Bowel: Normal caliber. Postsurgical changes in the distal esophagus. Mesentery and Retroperitoneum: No enlarged mesenteric or retroperitoneal lymph nodes. Vessels: Atherosclerotic calcifications. Abdominal Wall: within normal limits. Bones: Degenerative changes in the spine. IMPRESSION: 1. No evidence of recurrent or metastatic disease. 2. Cholelithiasis
[2019-04-26] MEDS ORDERED: ISOVUE-370 76%-LOCM 1 ML ONE (16:17)
== END 2019-04-26 09:08 | disposition home or self-care (01) ==
LOC: BICCT 09:07
PROVIDERS: ATTEND Internal Medicine Hematology & Oncology
DX: C15.5 Malignant neoplasm of lower third of esophagus (principal); K80.20 Calculus of gallbladder without cholecystitis without obstruction
CPT/HCPCS: 74177; Q9966

== ENCOUNTER 2019-06-11 10:20 | Outpatient (CLI) | payer MEDICARE ==
--- NOTE | 2019-06-11 11:44 | RAD ---
2 VIEW CHEST: Date: 06/11/19 INDICATION: Cough. Reference made to 03/12/19 exam. FINDINGS: There is hyperinflation of the lungs with interstitial prominence bilaterally. Right side chest port and left side subclavian approach AICD remain in place. There are sternotomy wires again noted. Cardi omediastinal silhouette is stable. Pleural based density at the inferior hemithoraces with obscuratio n of bilateral costophrenic sulci redemonstrated, grossly stable, indicating pleural fluid. IMPRESSION: 1. Interstitial opacities which may relate to chronic interstitial lung disease and/or edema. There is mild bilateral pleural fluid. 2. Recommend continued imaging follow-up. POS: [facility]
--- NOTE | 2019-06-11 11:46 | RAD ---
THORACIC SPINE RADIOGRAPH SERIES 3 VIEWS: Date: 06/11/19 INDICATION: Thoracic back pain. FINDINGS: There is multilevel degenerative change of the thoracic spine without acute fracture or subluxation i dentified. Frontal view is partially obscured by overlying chest wall structures including sternotomy wires. Incidental note of pleural based densities that suggest pleural fluid. IMPRESSION: No acute compression fracture or subluxation identified within the thoracic spine. POS: [facility]
--- NOTE | 2019-06-11 11:47 | RAD ---
RIGHT RIB SERIESs: Date: 06/11/19 INDICATION: Right rib pain. FINDINGS: No displaced right rib fracture is identified. Incidental note of pleural based density at the inferi or right chest. IMPRESSION: 1. No acute rib fracture of the right hemithorax is visualized. 2. Incidental pleural based density inferior right chest which suggests small volume pleural fluid. POS: [facility]
== END 2019-06-11 10:21 | disposition home or self-care (01) ==
LOC: BICRAD 10:20
PROVIDERS: ATTEND Internal Medicine
DX: M54.6 Pain in thoracic spine (principal); R07.81 Pleurodynia; M25.511 Pain in right shoulder; R05 Cough; R91.8 Other nonspecific abnormal finding of lung field
CPT/HCPCS: 71046; 72072

== ENCOUNTER 2019-10-11 08:57 | Outpatient (CLI) | payer MEDICARE ==
--- NOTE | 2019-10-11 11:27 | CT ---
CT CHEST WITH IV CONTRAST CT ABDOMEN WITH IV CONTRAST: Date: 10/11/2019 HISTORY: Esophageal cancer. Malignant neoplasm of lower third of esophagus. Status post esophagectomy. COMPARISON: CT abdomen and pelvis of 04/26/2019, CT pulmonary angiogram of 01/17/2018, and CT chest and abdomen o f 01/21/2017. FINDINGS: Postop changes of partial esophagectomy and gastric pull-through are again seen. There are tiny pleur al effusions and scarring/atelectatic changes in the lung bases, right greater than left. Emphysemato us changes in the lungs are again noted. There has been interval reduction in the size of the pseudot umor in the left fissure currently measuring about 8.0 mm. This could also represent a fissural nodul e. Prominent right hilar lymph nodes measuring up to 8.0 mm again seen. No mediastinal lymphadenopathy i s identified. No pericardial effusion is seen. Gynecomastia is again noted. The liver, spleen, pancreas, adrenal glands, and kidneys are normal. Cholelithiasis again noted. No f ree air, free fluid, or lymphadenopathy seen in the abdomen. There are vascular calcifications without evidence of aneurysmal dilatation of the thoracoabdominal a diamante. There are degenerative changes in the thoracolumbar spine. No osteolytic or osteoblastic lesion s are noted. IMPRESSION: No evidence of metastatic disease in the chest or abdomen. POS: [facility]
[2019-10-11] MEDS ORDERED: Iopamidol-370 76% 500 ML 1 ML ONE (14:57)
== END 2019-10-11 08:58 | disposition home or self-care (01) ==
LOC: BICCT 08:57
PROVIDERS: ATTEND Internal Medicine Hematology & Oncology
DX: C15.5 Malignant neoplasm of lower third of esophagus (principal)
CPT/HCPCS: 71260; 74160; Q9967

== ENCOUNTER 2021-06-05 10:38 | Outpatient (CLI) | payer MEDICARE | END 2021-06-05 10:39 | disposition home or self-care (01) | LOC: BICRAD 10:38 | PROVIDERS: ATTEND Internal Medicine Critical Care Medicine | DX: R06.00 Dyspnea, unspecified (principal); R91.8 Other nonspecific abnormal finding of lung field; Z95.810 Presence of automatic (implantable) cardiac defibrillator | CPT/HCPCS: 71046 ==

== ENCOUNTER 2021-11-07 11:50 | Outpatient (CLI) | payer MEDICARE ==
[2021-11-07 23:02] LABS: SARS-CoV-2 PCR by NAA Not Detected (NotDetected)
== END 2021-11-07 11:51 | disposition home or self-care (01) ==
LOC: LABBT 11:50
PROVIDERS: ATTEND Internal Medicine Gastroenterology
DX: Z01.812 Encounter for preprocedural laboratory examination (principal); K22.2 Esophageal obstruction; R85.89 Other abnormal findings in specimens from digestive organs and abdominal cavity; Z85.01 Personal history of malignant neoplasm of esophagus; Z20.822 Contact with and (suspected) exposure to COVID-19
CPT/HCPCS: U0003; U0005

== ENCOUNTER 2021-11-12 06:16 | Day surgery (SDC) | payer MEDICARE ==
[2021-11-07 14:57] VITALS: BMI 28.2
[2021-11-12] MEDS ORDERED: PROPOFOL 200 MG/20 ML VIAL ONE (08:24)
[2021-11-12] MEDS ORDERED: Lidocaine 1% PF 5 ML VIAL ONE (08:24)
== END 2021-11-12 11:43 | disposition home or self-care (01) ==
LOC: SDC 06:16
PROVIDERS: ATTEND Internal Medicine Gastroenterology
PROC: 0DBM8ZX Excision of Descending Colon, Via Natural or Artificial Opening Endoscopic, Diagnostic (ICD-10-PCS; principal; 2021-11-12)
PROC: 0DBN8ZX Excision of Sigmoid Colon, Via Natural or Artificial Opening Endoscopic, Diagnostic (ICD-10-PCS; 2021-11-12)
PROC: 0DBF8ZX Excision of Right Large Intestine, Via Natural or Artificial Opening Endoscopic, Diagnostic (ICD-10-PCS; 2021-11-12)
DX: D12.2 Benign neoplasm of ascending colon (principal); D12.4 Benign neoplasm of descending colon; K57.30 Diverticulosis of large intestine without perforation or abscess without bleeding; K66.0 Peritoneal adhesions (postprocedural) (postinfection); J44.9 Chronic obstructive pulmonary disease, unspecified; I25.10 Atherosclerotic heart disease of native coronary artery without angina pectoris; E11.9 Type 2 diabetes mellitus without complications; E78.00 Pure hypercholesterolemia, unspecified; I10 Essential (primary) hypertension; K22.2 Esophageal obstruction; K21.9 Gastro-esophageal reflux disease without esophagitis; Z85.01 Personal history of malignant neoplasm of esophagus; Z86.010 Personal history of colon polyps; Z87.891 Personal history of nicotine dependence; Z79.01 Long term (current) use of anticoagulants; Z79.82 Long term (current) use of aspirin; Z79.84 Long term (current) use of oral hypoglycemic drugs; Z79.899 Other long term (current) drug therapy; Z95.1 Presence of aortocoronary bypass graft
CPT/HCPCS: 88305; C1776; J2704

== ENCOUNTER 2021-11-16 11:45 | Inpatient (IN) | payer MEDICARE ==
[~2021-11-16 11:45] MED LIST changes: -ISOVUE-370 76%-LOCM 1 ML ONE; +Iopamidol 370 76% 100 ML VIAL ONE
[2021-11-16 12:56] LABS: #Eosinphils 0.2 thou/uL (0.0-0.7); #Neutrophils 8.2 thou/uL (1.40-6.50); %Basophils 0.1 % (0.0-1.0); %Eosinophils 2.1 % (0.0-10.0); %Lymphocytes 9.3 % (21.0-51.0); %Neutrophils 78.4 % (42.0-75.0); Hemoglobin 15.1 g/dL (14.0-18.0); Mean Corpuscular HGB CONC 31.3 g/dL (32.0-36.0); Mean Corpuscular Hemoglobin 31.2 pg (27.0-31.0); Mean Corpuscular Volume 99.5 fL (78.0-98.0); Mean Platelet Volume 8.4 fL (7.4-10.4); Platelet Count 180 thou/uL (130-400); RBC Distribution Width 12.7 % (11.5-14.5); Red Blood Cell (RBC) Count 4.86 mill/uL (4.70-6.10); White Blood Cell (WBC) Count 10.4 thou/uL (4.8-10.8)
[2021-11-16 13:21] LABS: ALT (SGPT) 57 U/L (8-55); AST (SGOT) 62 U/L (5-34); Albumin 3.4 g/dL (3.4-4.8); Alkaline Phosphatase 82 U/L (40-110); Anion Gap 15 mmol/L (10-20); BUN (Urea Nitrogen) 20 mg/dL (8.4-25.7); Bilirubin, Total 0.7 mg/dL (0.2-1.2); Calc. Creatinine Clearance 0 mL/min (70-130); Calcium 9.4 mg/dL (7.8-10.44); Carbon Dioxide 27 mmol/L (23-31); Chloride 102 mmol/L (98-107); Globulin 3.5 g/dL (2.4-3.5); Glucose 135 mg/dL (83-110); Potassium 3.2 mmol/L (3.5-5.1); Protein, Total 6.9 g/dL (5.8-8.1); Sodium 141 mmol/L (136-145)
[2021-11-16] MEDS ORDERED: Ondansetron PF 4 MG/2 ML Vial IVP PRN (16:00)
[2021-11-16] MEDS ORDERED: Ondansetron ODT 4 MG TAB SL PRN (16:00)
[2021-11-16] MEDS ORDERED: Acetaminophen 325 MG TAB PO PRN (16:00)
[2021-11-16] MEDS ORDERED: cefTRIAXone\\ROCEPHIN 2 GM VIAL ONE (16:02)
[2021-11-16] MEDS ORDERED: Azithromycin 500 MG VIAL ONE ×2 (16:27→16:32)
[2021-11-16 17:09] LABS: SARS-CoV-2 NAA Rapid Test Not Detected (NotDetected)
[2021-11-16 18:32] VITALS: BMI 27.3
[2021-11-16] MEDS ORDERED: Guaifenesin DM 100-10/5 ML UDCUP PO PRN (18:42)
[2021-11-16] MEDS ORDERED: Potassium Chloride 20 MEQ/100 ML PREMIX BAG IVPB SCH (19:00)
[2021-11-16 19:44] LABS: Magnesium 1.8 mg/dL (1.6-2.6)
[2021-11-16] MEDS ORDERED: Magnesium 2 GM/50 ML 2 GM in Premix Bag 1 BAG IVPB SCH (21:00)
[2021-11-16] MEDS: Rosuvastatin 20 MG TAB PO SCH (22:44)
[2021-11-16] MEDS: Aspirin Chewable 81 MG TAB PO SCH (22:44)
[2021-11-16] MEDS: Apixaban 5 MG TAB PO SCH (22:45)
[2021-11-17] MEDS: metroNIDAZOLE 500 MG in Premix Bag 1 BAG IVPB SCH ×4 (01:05→20:45)
[2021-11-17 05:29] LABS: #Eosinphils 0.3 thou/uL (0.0-0.7); #Lymphocytes 1.3 thou/uL (1.20-3.40); #Monocytes 1.1 thou/uL (0.11-0.59); #Neutrophils 5.4 thou/uL (1.40-6.50); %Basophils 0.2 % (0.0-1.0); %Eosinophils 3.3 % (0.0-10.0); %Lymphocytes 16.2 % (21.0-51.0); %Monocytes 13.7 % (0.0-10.0); %Neutrophils 66.7 % (42.0-75.0); Hemoglobin 13.9 g/dL (14.0-18.0); Mean Corpuscular HGB CONC 32.8 g/dL (32.0-36.0); Mean Corpuscular Hemoglobin 32.6 pg (27.0-31.0); Mean Corpuscular Volume 99.4 fL (78.0-98.0); Mean Platelet Volume 8.2 fL (7.4-10.4); Platelet Count 186 thou/uL (130-400); RBC Distribution Width 12.4 % (11.5-14.5); Red Blood Cell (RBC) Count 4.26 mill/uL (4.70-6.10); White Blood Cell (WBC) Count 8.2 thou/uL (4.8-10.8)
[2021-11-17 05:37] LABS: Anion Gap 11 mmol/L (10-20); BUN (Urea Nitrogen) 17 mg/dL (8.4-25.7); Calc. Creatinine Clearance 134 mL/min (70-130); Calcium 8.6 mg/dL (7.8-10.44); Carbon Dioxide 30 mmol/L (23-31); Chloride 102 mmol/L (98-107); Glucose 100 mg/dL (83-110); Potassium 3.1 mmol/L (3.5-5.1); Sodium 140 mmol/L (136-145)
[2021-11-17] MEDS: Levothyroxine Sodium 125 MCG TAB PO SCH (06:14)
[2021-11-17] MEDS ORDERED: Carvedilol 6.25 MG TAB PO SCH ×2 (08:00→09:06)
[2021-11-17] MEDS ORDERED: Dextrose 5% in Water 1,000 ML IV PRN (08:35)
[2021-11-17] MEDS ORDERED: HumaLOG 300 UNITS/3 ML VIAL SC PRN ×2 (08:35)
[2021-11-17] MEDS ORDERED: Dextrose 50% Abboject 50 ML SYRINGE SLOW IVP PRN (08:35)
[2021-11-17] MEDS ORDERED: Potassium Chloride 20 MEQ TAB PO SCH ×2 (09:00→16:30)
[2021-11-17] MEDS ORDERED: Furosemide 40 MG TAB PO SCH (09:15)
[2021-11-17] MEDS ORDERED: Carvedilol 3.125 MG TAB PO SCH (10:15)
[2021-11-17] MEDS: Apixaban 5 MG TAB PO SCH ×2 (10:51→20:46)
[2021-11-17] MEDS ORDERED: Ezetimibe 10 MG TAB PO SCH (11:15)
[2021-11-17 12:15] LABS: Legionella Urinary Ag Negative (Negative); Strep pneumo Urine Ag NEGATIVE (NEGATIVE)
[2021-11-17 15:08] LABS: Anion Gap 8 mmol/L (10-20); BUN (Urea Nitrogen) 19 mg/dL (8.4-25.7); Calc. Creatinine Clearance 136 mL/min (70-130); Calcium 8.6 mg/dL (7.8-10.44); Carbon Dioxide 33 mmol/L (23-31); Chloride 100 mmol/L (98-107); Glucose 124 mg/dL (83-110); Potassium 3.5 mmol/L (3.5-5.1); Sodium 137 mmol/L (136-145)
[2021-11-17] MEDS: cefTRIAXone\\ROCEPHIN 1 GM in Sodium Chloride 0.9% 100 ML IVPB SCH (16:19)
[2021-11-17] MEDS: Carvedilol 3.125 MG TAB PO SCH (16:19)
[2021-11-17] MEDS: Furosemide 40 MG TAB PO SCH (17:03)
[2021-11-17] MEDS: Azithromycin 500 MG in Sodium Chloride 0.9% 250 ML 250 ML IVPB SCH (17:03)
[2021-11-17] MEDS: Loratadine 10 MG TAB PO SCH (20:45)
[2021-11-17] MEDS: Rosuvastatin 20 MG TAB PO SCH (20:46)
[2021-11-17] MEDS: Aspirin Chewable 81 MG TAB PO SCH (20:46)
[2021-11-18] MEDS: Levothyroxine Sodium 125 MCG TAB PO SCH (04:59)
[2021-11-18] MEDS: metroNIDAZOLE 500 MG in Premix Bag 1 BAG IVPB SCH ×3 (05:00→21:03)
[2021-11-18] MEDS: Furosemide 40 MG TAB PO SCH ×2 (05:02→17:28)
[2021-11-18 05:14] LABS: #Eosinphils 0.3 thou/uL (0.0-0.7); #Lymphocytes 1.2 thou/uL (1.20-3.40); #Monocytes 1.1 thou/uL (0.11-0.59); #Neutrophils 5.4 thou/uL (1.40-6.50); %Basophils 0.3 % (0.0-1.0); %Eosinophils 4.2 % (0.0-10.0); %Lymphocytes 15.1 % (21.0-51.0); %Monocytes 13.4 % (0.0-10.0); %Neutrophils 66.9 % (42.0-75.0); Hemoglobin 13.7 g/dL (14.0-18.0); Mean Corpuscular HGB CONC 32.4 g/dL (32.0-36.0); Mean Corpuscular Hemoglobin 32.2 pg (27.0-31.0); Mean Corpuscular Volume 99.3 fL (78.0-98.0); Mean Platelet Volume 8.6 fL (7.4-10.4); Platelet Count 193 thou/uL (130-400); RBC Distribution Width 12.4 % (11.5-14.5); Red Blood Cell (RBC) Count 4.24 mill/uL (4.70-6.10); White Blood Cell (WBC) Count 8.1 thou/uL (4.8-10.8)
[2021-11-18 05:39] LABS: Anion Gap 9 mmol/L (10-20); BUN (Urea Nitrogen) 15 mg/dL (8.4-25.7); Calc. Creatinine Clearance 146 mL/min (70-130); Calcium 8.3 mg/dL (7.8-10.44); Carbon Dioxide 32 mmol/L (23-31); Chloride 102 mmol/L (98-107); Glucose 104 mg/dL (83-110); Potassium 3.7 mmol/L (3.5-5.1); Sodium 139 mmol/L (136-145)
[2021-11-18] MEDS: Ezetimibe 10 MG TAB PO SCH (08:52)
[2021-11-18] MEDS: Potassium Chloride 10 MEQ TAB PO SCH (08:52)
[2021-11-18] MEDS: Carvedilol 3.125 MG TAB PO SCH ×2 (08:52→16:35)
[2021-11-18] MEDS: Multivit, Chewable SF 1 TAB PO SCH (08:53)
[2021-11-18] MEDS: Apixaban 5 MG TAB PO SCH ×2 (08:53→21:01)
[2021-11-18] MEDS: cefTRIAXone\\ROCEPHIN 1 GM in Sodium Chloride 0.9% 100 ML IVPB SCH (15:59)
[2021-11-18] MEDS: Azithromycin 500 MG in Sodium Chloride 0.9% 250 ML 250 ML IVPB SCH (16:34)
[2021-11-18] MEDS: Rosuvastatin 20 MG TAB PO SCH (21:01)
[2021-11-18] MEDS: Loratadine 10 MG TAB PO SCH (21:01)
[2021-11-18] MEDS: Aspirin Chewable 81 MG TAB PO SCH (21:01)
[2021-11-19] MEDS: Levothyroxine Sodium 125 MCG TAB PO SCH (05:46)
[2021-11-19] MEDS: Furosemide 40 MG TAB PO SCH ×2 (05:46→12:41)
[2021-11-19] MEDS: metroNIDAZOLE 500 MG in Premix Bag 1 BAG IVPB SCH (05:47)
[2021-11-19 08:48] LABS: #Eosinphils 0.3 thou/uL (0.0-0.7); #Lymphocytes 1.1 thou/uL (1.20-3.40); #Monocytes 1.1 thou/uL (0.11-0.59); #Neutrophils 4.7 thou/uL (1.40-6.50); %Basophils 0.7 % (0.0-1.0); %Eosinophils 4.7 % (0.0-10.0); %Lymphocytes 15.4 % (21.0-51.0); %Monocytes 14.6 % (0.0-10.0); %Neutrophils 64.6 % (42.0-75.0); Hemoglobin 13.8 g/dL (14.0-18.0); Mean Corpuscular HGB CONC 31.7 g/dL (32.0-36.0); Mean Corpuscular Hemoglobin 31.9 pg (27.0-31.0); Mean Platelet Volume 7.7 fL (7.4-10.4); Platelet Count 217 thou/uL (130-400); RBC Distribution Width 12.4 % (11.5-14.5); Red Blood Cell (RBC) Count 4.34 mill/uL (4.70-6.10); White Blood Cell (WBC) Count 7.3 thou/uL (4.8-10.8)
[2021-11-19 09:06] LABS: Anion Gap 11 mmol/L (10-20); BUN (Urea Nitrogen) 12 mg/dL (8.4-25.7); Calc. Creatinine Clearance 147 mL/min (70-130); Calcium 8.3 mg/dL (7.8-10.44); Carbon Dioxide 27 mmol/L (23-31); Chloride 104 mmol/L (98-107); Glucose 115 mg/dL (83-110); Potassium 3.6 mmol/L (3.5-5.1); Sodium 138 mmol/L (136-145)
[2021-11-19] MEDS: Apixaban 5 MG TAB PO SCH (09:29)
[2021-11-19] MEDS: Carvedilol 3.125 MG TAB PO SCH (09:29)
[2021-11-19] MEDS: Multivit, Chewable SF 1 TAB PO SCH (09:29)
[2021-11-19] MEDS: Ezetimibe 10 MG TAB PO SCH (09:29)
[2021-11-19] MEDS: Potassium Chloride 10 MEQ TAB PO SCH (09:30)
[2021-11-19 11:50] VITALS: BP 102/62; TEMP 97.7
[2021-11-19] MEDS ORDERED: Azithromycin 250 MG TAB PO SCH (15:00)
[2021-11-19] MEDS ORDERED: metroNIDAZOLE 500 MG TAB PO SCH (15:00)
[2021-11-20] MEDS ORDERED: FLU VACC QS2021-22(65YR UP)/PF 240 MCG/0.7 ML SYRINGE IM ONE (09:00)
[2021-11-20] MEDS ORDERED: Azithromycin 250 MG TAB PO SCH (09:00)
== END 2021-11-19 12:40 | disposition home or self-care (01) | DRG 177 ==
LOC: ERS 11:45 → 2NO 16:29
PROVIDERS: ADMIT Hospitalist; ATTEND Internal Medicine
DX: J69.0 Pneumonitis due to inhalation of food and vomit (principal); J96.01 Acute respiratory failure with hypoxia; J44.0 Chronic obstructive pulmonary disease with (acute) lower respiratory infection; I50.20 Unspecified systolic (congestive) heart failure; I25.810 Atherosclerosis of coronary artery bypass graft(s) without angina pectoris; C16.5 Malignant neoplasm of lesser curvature of stomach, unspecified; I48.20 Chronic atrial fibrillation, unspecified; Z20.822 Contact with and (suspected) exposure to COVID-19; E87.6 Hypokalemia; I11.0 Hypertensive heart disease with heart failure; I95.9 Hypotension, unspecified; E03.9 Hypothyroidism, unspecified; G47.33 Obstructive sleep apnea (adult) (pediatric); E78.5 Hyperlipidemia, unspecified; Z79.01 Long term (current) use of anticoagulants; Z79.82 Long term (current) use of aspirin; Z79.899 Other long term (current) drug therapy; Z95.1 Presence of aortocoronary bypass graft; Z90.49 Acquired absence of other specified parts of digestive tract; Z92.21 Personal history of antineoplastic chemotherapy
CPT/HCPCS: 0240U; 36415; 36416; 71045; 71275; 80048; 80053; 83605; 83735; 84443; 84484; 85025; 87040; 87070; 87205; 87449; 87899; 93005; 96365; 96367; J0456; J0696; J1642; J3475; J3480; J3490; J7050; Q9967

== ENCOUNTER 2022-11-21 09:33 | Inpatient (IN) | payer MEDICARE ==
[2022-11-21 10:33] LABS: Hemoglobin 15.7 g/dL (14.0-18.0); Mean Corpuscular HGB CONC 32.4 g/dL (32.0-36.0); Mean Corpuscular Hemoglobin 31.5 pg (27.0-31.0); Mean Corpuscular Volume 97.3 fl (78.0-98.0); Mean Platelet Volume 8.7 fL (7.4-10.4); Platelet Count 235 10x3/uL (130-400); RBC Distribution Width 12.5 % (11.5-14.5); Red Blood Cell (RBC) Count 4.97 mill/uL (4.70-6.10); White Blood Cell (WBC) Count 14.1 10x3/uL (4.8-10.8)
[2022-11-21 10:44] LABS: ALT (SGPT) 35 U/L (8-55); AST (SGOT) 24 U/L (5-34); Albumin 3.3 g/dL (3.4-4.8); Alkaline Phosphatase 72 U/L (40-110); Anion Gap 19 mmol/L (10-20); BUN (Urea Nitrogen) 23 mg/dL (8.4-25.7); Bilirubin, Total 0.8 mg/dL (0.2-1.2); Calc. Creatinine Clearance 0 mL/min (70-130); Calcium 9.1 mg/dL (7.8-10.44); Carbon Dioxide 24 mmol/L (23-31); Chloride 101 mmol/L (98-107); Estimated GFR 92; Globulin 4.1 g/dL (2.4-3.5); Glucose 148 mg/dL (83-110); Potassium 3.8 mmol/L (3.5-5.1); Protein, Total 7.4 g/dL (5.8-8.1); Sodium 140 mmol/L (136-145)
[2022-11-21] MEDS ORDERED: Azithromycin 500 MG VIAL ONE (10:47)
[2022-11-21 10:54] LABS: Band 44 % (5-11); Lymphocytes 5 % (21-51); MDiff Complete? YES; Metamyelocyte 2 % (0-0); Monocytes 7 % (0-10); Neutrophil 41 % (42-75); Platelet Morphology Comment Appears Adequate; Polychromasia SLIGHT = 2-3 cells (100X) (0-2/hpf); Toxic Granulation SLIGHT; Vacuoles SLIGHT
[2022-11-21] MEDS ORDERED: methylPREDNISolone Sod Succ/PF 125 MG/2 ML VIAL ONE (11:29)
[2022-11-21] MEDS ORDERED: Ipratropium/Albuterol 3 ML NEB ONE (11:29)
[2022-11-21] MEDS ORDERED: cefTRIAXone\\ROCEPHIN 2 GM VIAL ONE (12:06)
[2022-11-21 13:17] LABS: SARS-CoV-2 NAA Rapid Test Not Detected (NotDetected)
[2022-11-21] MEDS ORDERED: Bisacodyl 10 MG SUPP PR PRN (14:25)
[2022-11-21] MEDS ORDERED: Acetaminophen 325 MG TAB PO PRN (14:25)
[2022-11-21] MEDS ORDERED: Senokot S 8.6-50 MG TAB PO PRN (14:25)
[2022-11-21] MEDS ORDERED: Bisacodyl 5 MG TAB PO PRN (14:25)
[2022-11-21] MEDS ORDERED: Furosemide 40 MG/4 ML VIAL SLOW IVP SCH (14:30)
[2022-11-21 17:52] VITALS: BMI 27.1
[2022-11-21] MEDS: Mometasone/Formoterol 200/5 60 PUFF INH SCH (19:33)
[2022-11-21] MEDS: Aspirin Chewable 81 MG TAB PO SCH (20:54)
[2022-11-21] MEDS: Carvedilol 3.125 MG TAB PO SCH (20:54)
[2022-11-21] MEDS: Famotidine 20 MG TAB PO SCH (20:54)
[2022-11-21] MEDS: Apixaban 5 MG TAB PO SCH (20:54)
[2022-11-21] MEDS: Empagliflozin 25 MG TAB PO SCH (20:55)
[2022-11-21] MEDS: Rosuvastatin 20 MG TAB PO SCH (20:55)
[2022-11-22 04:40] LABS: Hemoglobin 15.9 g/dL (14.0-18.0); Mean Corpuscular HGB CONC 31.7 g/dL (32.0-36.0); Mean Corpuscular Hemoglobin 31.5 pg (27.0-31.0); Mean Corpuscular Volume 99.4 fl (78.0-98.0); Mean Platelet Volume 8.8 fL (7.4-10.4); Platelet Count 263 10x3/uL (130-400); RBC Distribution Width 12.6 % (11.5-14.5); Red Blood Cell (RBC) Count 5.04 mill/uL (4.70-6.10); White Blood Cell (WBC) Count 14.2 10x3/uL (4.8-10.8)
[2022-11-22 04:56] LABS: Anion Gap 16 mmol/L (10-20); BUN (Urea Nitrogen) 27 mg/dL (8.4-25.7); Calc. Creatinine Clearance 108 mL/min (70-130); Calcium 9.4 mg/dL (7.8-10.44); Carbon Dioxide 28 mmol/L (23-31); Chloride 101 mmol/L (98-107); Estimated GFR 92; Glucose 173 mg/dL (83-110); Potassium 3.4 mmol/L (3.5-5.1); Sodium 142 mmol/L (136-145)
[2022-11-22] MEDS: Levothyroxine Sodium 125 MCG TAB PO SCH (05:10)
[2022-11-22] MEDS: Furosemide 40 MG/4 ML VIAL SLOW IVP SCH ×2 (05:10→13:53)
[2022-11-22 05:20] LABS: Band 35 % (5-11); Lymphocytes 4 % (21-51); MDiff Complete? YES; Monocytes 4 % (0-10); Neutrophil 57 % (42-75)
[2022-11-22] MEDS: Mometasone/Formoterol 200/5 60 PUFF INH SCH ×2 (07:29→18:59)
[2022-11-22] MEDS ORDERED: Electrolyte Replacement Protocol 1 EACH FS SCH (09:15)
[2022-11-22] MEDS ORDERED: Potassium Chloride 20 MEQ TAB PO SCH (09:15)
[2022-11-22] MEDS: Famotidine 20 MG TAB PO SCH ×2 (09:23→20:26)
[2022-11-22] MEDS: Carvedilol 3.125 MG TAB PO SCH ×2 (09:23→20:26)
[2022-11-22] MEDS: predniSONE 20 MG TAB PO SCH (09:23)
[2022-11-22] MEDS: Ezetimibe 10 MG TAB PO SCH (09:23)
[2022-11-22] MEDS: Apixaban 5 MG TAB PO SCH ×2 (09:24→20:25)
[2022-11-22] MEDS: Azithromycin 250 MG TAB PO SCH (13:52)
[2022-11-22] MEDS: cefTRIAXone\\ROCEPHIN 1 GM in Sodium Chloride 0.9% 100 ML IVPB SCH (13:53)
[2022-11-22] MEDS: Aspirin Chewable 81 MG TAB PO SCH (20:25)
[2022-11-22] MEDS: Empagliflozin 25 MG TAB PO SCH (20:26)
[2022-11-22] MEDS: Rosuvastatin 20 MG TAB PO SCH (20:26)
[2022-11-23 04:33] LABS: Hemoglobin 14.9 g/dL (14.0-18.0); Mean Corpuscular HGB CONC 32.7 g/dL (32.0-36.0); Mean Corpuscular Hemoglobin 32.2 pg (27.0-31.0); Mean Corpuscular Volume 98.3 fl (78.0-98.0); Mean Platelet Volume 8.3 fL (7.4-10.4); Platelet Count 258 10x3/uL (130-400); RBC Distribution Width 12.3 % (11.5-14.5); Red Blood Cell (RBC) Count 4.62 mill/uL (4.70-6.10); White Blood Cell (WBC) Count 16.1 10x3/uL (4.8-10.8)
[2022-11-23 04:50] LABS: Anion Gap 13 mmol/L (10-20); BUN (Urea Nitrogen) 32 mg/dL (8.4-25.7); Calc. Creatinine Clearance 109 mL/min (70-130); Calcium 8.8 mg/dL (7.8-10.44); Carbon Dioxide 26 mmol/L (23-31); Chloride 104 mmol/L (98-107); Estimated GFR 92; Glucose 142 mg/dL (83-110); Potassium 3.4 mmol/L (3.5-5.1); Sodium 140 mmol/L (136-145)
[2022-11-23 05:12] LABS: Band 11 % (5-11); Lymphocytes 10 % (21-51); MDiff Complete? YES; Monocytes 3 % (0-10); Myelocyte 1 % (0-0); Neutrophil 75 % (42-75); Platelet Morphology Comment Appears Adequate; RBC Morphology Normal
[2022-11-23] MEDS: Furosemide 40 MG/4 ML VIAL SLOW IVP SCH (05:56)
[2022-11-23] MEDS: Levothyroxine Sodium 125 MCG TAB PO SCH (05:56)
[2022-11-23] MEDS: Mometasone/Formoterol 200/5 60 PUFF INH SCH (07:01)
[2022-11-23] MEDS: Carvedilol 3.125 MG TAB PO SCH (08:28)
[2022-11-23] MEDS: Ezetimibe 10 MG TAB PO SCH (08:28)
[2022-11-23] MEDS: predniSONE 20 MG TAB PO SCH (08:28)
[2022-11-23] MEDS: Famotidine 20 MG TAB PO SCH (08:28)
[2022-11-23] MEDS: Apixaban 5 MG TAB PO SCH (08:28)
[2022-11-23] MEDS: Azithromycin 250 MG TAB PO SCH (11:19)
[2022-11-23] MEDS: cefTRIAXone\\ROCEPHIN 1 GM in Sodium Chloride 0.9% 100 ML IVPB SCH (11:19)
[2022-11-23 12:09] VITALS: BP 120/81; TEMP 98.6
[2022-11-23] MEDS ORDERED: Furosemide 40 MG TAB PO SCH (21:00)
[2022-11-25] MEDS ORDERED: Furosemide 40 MG TAB PO SCH (15:00)
== END 2022-11-23 14:20 | disposition home or self-care (01) | DRG 291 ==
LOC: ERS 09:33 → ERHOLD 13:51 → 2NO 16:52
PROVIDERS: ADMIT Hospitalist; ATTEND Hospitalist
PROC: 5A09357 Assistance with Respiratory Ventilation, Less than 24 Consecutive Hours, Continuous Positive Airway Pressure (ICD-10-PCS; principal; 2022-11-21)
DX: I11.0 Hypertensive heart disease with heart failure (principal); I50.23 Acute on chronic systolic (congestive) heart failure; J96.01 Acute respiratory failure with hypoxia; J44.1 Chronic obstructive pulmonary disease with (acute) exacerbation; Z20.822 Contact with and (suspected) exposure to COVID-19; I50.22 Chronic systolic (congestive) heart failure; G47.33 Obstructive sleep apnea (adult) (pediatric); I25.10 Atherosclerotic heart disease of native coronary artery without angina pectoris; Z99.89 Dependence on other enabling machines and devices; Z95.1 Presence of aortocoronary bypass graft; Z85.01 Personal history of malignant neoplasm of esophagus; Z79.899 Other long term (current) drug therapy; Z79.82 Long term (current) use of aspirin; Z79.890 Hormone replacement therapy; Z79.01 Long term (current) use of anticoagulants; Z92.21 Personal history of antineoplastic chemotherapy; Z92.3 Personal history of irradiation
CPT/HCPCS: 36415; 71045; 80048; 80053; 83605; 83880; 84484; 85025; 87040; 93005; 93306; 94640; 97139; J0456; J0696; J0713; J1642; J1940; J2930; J3490; J7512; J7611; J7620

== ENCOUNTER 2022-12-16 10:37 | Outpatient (CLI) | payer MEDICARE | END 2022-12-16 10:38 | disposition home or self-care (01) | LOC: RAD 10:37 | PROVIDERS: ATTEND Internal Medicine Critical Care Medicine | DX: R06.00 Dyspnea, unspecified (principal); J98.4 Other disorders of lung | CPT/HCPCS: 71046 ==

== ENCOUNTER 2023-08-13 01:10 | Emergency (ER) | payer MEDICARE ==
[2023-08-13] MEDS ORDERED: EPINEPHrine 1 MG/10 ML Abboject SYRINGE ONE (01:13)
[2023-08-13] MEDS ORDERED: Calcium Chloride 1 GM/10 ML Abboject SYRINGE ONE (01:13)
[2023-08-13] MEDS ORDERED: Sodium Bicarb 50 MEQ/50 ML Abboject 8.4% SYRINGE ONE (01:13)
[2023-08-13] MEDS ORDERED: Amiodarone 150 MG/3 ML VIAL ONE (01:13)
[2023-08-13] MEDS ORDERED: Magnesium 2 GM/50 ML BAG (IN WATER) ONE (01:24)
== END 2023-08-13 01:28 | disposition expired ==
LOC: EEVIPCON 01:10 → ERS 01:10
DX: R09.2 Respiratory arrest (principal); E78.00 Pure hypercholesterolemia, unspecified; Z87.891 Personal history of nicotine dependence; Z79.899 Other long term (current) drug therapy; Z79.01 Long term (current) use of anticoagulants
CPT/HCPCS: 92950; 96374; 96375; J0171; J0282; J3475